=== PATIENT | female | born 1970 | race Caucasian/White ===

== ENCOUNTER 2023-09-18 16:25 | Emergency (ER) | payer OTHER, SELFPAY ==
[2023-09-18 16:30] VITALS: BP 128/78; PULSE 79; RESP 18; TEMP 37.7; O2SAT 100; BMI 20.3
--- NOTE | 2023-09-18 16:39 | ED.GENADUL1 ---
Documented by User: Lucero Bethea 09/18/23 17:39 HPI - General Adult General Chief complaint: Upper Respiratory Infection Stated complaint: Nausea, Weakness Time Seen by Provider: 09/18/23 16:37 Source: patient Mode of arrival: walk-in Limitations: no limitations History of Present Illness HPI narrative: 52 year old female presents to the ED for nausea, body aches, fatigue. Onset was this morning. She developed cough, congestion last night. States her children were ill last week. She feels dehydrated. Denies fever, dizziness, CP, SOB, abd pain, diarrhea. Rates her pain 4/10 at this time. Related Data Home Medications Medication Instructions Recorded Confirmed No Known Home Medications 09/18/23 09/18/23 Allergies Allergy/AdvReac Type Severity Reaction Status Date / Time No Known Drug Allergies Allergy Verified 09/18/23 16:30 Review of Systems ROS Constitutional Reports: chills; Denies: fever Ears, nose, mouth, and throat Reports: nasal discharge and nasal congestion; Denies: throat pain, neck pain or throat swelling Cardiovascular Denies: chest pain Respiratory Reports: cough; Denies: shortness of breath Gastrointestinal Reports: nausea and vomiting; Denies: abdominal pain or diarrhea Genitourinary Denies: painful urination Musculoskeletal Denies: back pain or neck pain Integumentary/Breast Reports: rash Neurological Denies: headache, weakness in extremities or dizziness PFSH PFSH Social History Smoking status: Never smoker Exam Constitutional Vital Signs, click to edit/add: Last Vital Signs Temp 99.9 F 09/18/23 16:30 Pulse 79 09/18/23 16:30 Resp 18 09/18/23 16:30 BP 128/78 09/18/23 16:30 Pulse Ox 100 09/18/23 16:30 Common normals: no apparent distress and oriented x3 General appearance: cooperative [facility] Common normals: normocephalic Face and sinus: normal facial exam Nose: external nose normal External auditory canal: EACs normal Mouth: oral and palatal mucosa normal, lip normal and tongue normal Eye Common normals: conjunctivae normal and no scleral icterus Neck & C-Spine Common normals: supple Chest Common normals: inspection of chest normal Respiratory Common normals: normal respiratory effort Effort & inspection: symmetric chest movement Auscultation: clear to auscultation bilaterally Cardio Common normals: regular rate and regular rhythm GI Common normals: Normal to inspection, nondistended, normoactive bowel sounds present, soft to palpation and non-tender Neuro Common normals: oriented x3 Sensorium/orientation: awake Speech: speech normal Course Vital Signs Vital signs: Vital Signs Temperature 99.9 F 09/18/23 16:30 Pulse Rate 79 09/18/23 16:30 Respiratory Rate 18 09/18/23 16:30 Blood Pressure 128/78 09/18/23 16:30 Pulse Oximetry 100 09/18/23 16:30 Temperature 99.9 F 09/18/23 16:30 Pulse Rate 79 09/18/23 16:30 Respiratory Rate 18 09/18/23 16:30 Blood Pressure 128/78 09/18/23 16:30 Pulse Oximetry 100 09/18/23 16:30 Medical Decision Making MDM Narrative Medical decision making narrative: She tested positive for Covid-19. She was given IV fluids, Zofran, and Toradol with improvement in her sx. She reported she was feeling much better. She has Phenergan for nausea at home. Follow up with pcp for a recheck, further evaluation and treatment. Return precautions were discussed. Medical Records Medical records reviewed: Yes I reviewed the patient's medical records Lab Data Lab results reviewed: Yes I reviewed the patient's lab results Labs: Lab Results 09/18/23 Range/Units 16:50 WBC 6.9 (4.0-11.0) 10^3/uL RBC 4.16 L (4.20-5.40) 10^6/uL Hgb 12.9 (12.0-16.0) g/dL Hct 39.2 (36.0-48.0) % MCV 94.2 (81.0-99.0) fL MCH 31.0 (26.7-34.0) pg MCHC 32.9 (29.9-35.2) g/dL RDW 12.4 (11.0-15.0) % Plt Count 166 (150-450) 10^3/uL MPV 10.0 (9.5-13.5) fL Neut % (Auto) 93.0 H (43.0-75.0) % Lymph % (Auto) 2.6 L (20.5-60.0) % Dubois % (Auto) 3.6 (1.7-12.0) % Eos % (Auto) 0.1 L (0.9-7.0) % Baso % (Auto) 0.4 (0.2-2.0) % Neut # (Auto) 6.4 (1.4-6.5) 10^3/uL Lymph # (Auto) 0.2 L (1.2-3.8) 10^3/uL Dubois # (Auto) 0.3 (0.3-0.8) 10^3/uL Eos # (Auto) 0.0 (0.0-0.7) 10^3/uL Baso # (Auto) 0.0 (0.0-0.1) 10^3/uL Abs Immat Gran (auto) 0.02 (0.00-0.03) 10^3/uL Imm/Tot Granulo (auto) 0.3 (0.0-0.5) % Sodium 138 (136-145) mmol/L Potassium 3.6 (3.5-5.1) mmol/L Chloride 101 (98-107) mmol/L Carbon Dioxide 25.2 (21.0-32.0) mmol/L Anion Gap 15.4 BUN 15.0 (7.0-18.0) mg/dL Creatinine 0.84 (0.55-1.02) mg/dL Est GFR ( Amer) >60 (>=60) Est GFR (Non-Af Amer) >60 (>=60) BUN/Creatinine Ratio 17.9 Glucose 120 H (74-106) mg/dL Calcium 9.6 (8.5-10.1) mg/dL SARS-CoV-2 (PCR) Positive A (NEGATIVE) Influenza Type A Ag Negative Influenza Type B Ag Negative Discharge Plan Discharge Chief Complaint: Upper Respiratory Infection Clinical Impression: COVID-19, Nausea Patient Disposition: Home, Self-Care Time of Disposition Decision: 17:19 Condition: Good Mode of Transportation: Private Vehicle Prescriptions / Home Meds: No Action No Known Home Medications Instructions: COVID-19 (Coronavirus Disease 2019) (ED), How to Recover from COVID-19 at Home (ED) Stand Alone Forms: Portal Instructions Referrals: RAMIREZ QUEEN [Primary Care Provider] - 1 week Discharge Date/Time: 09/18/23 17:32 Documented by User: Thanh Sahu MD 09/18/23 19:35 HPI - General Adult General Chief complaint: Upper Respiratory Infection Stated complaint: Nausea, Weakness Time Seen by Provider: 09/18/23 16:37 Related Data Home Medications Medication Instructions Recorded Confirmed No Known Home Medications 09/18/23 09/18/23 Allergies Allergy/AdvReac Type Severity Reaction Status Date / Time No Known Drug Allergies Allergy Verified 09/18/23 16:30 PFSH PFSH Social History Smoking status: Never smoker Exam Constitutional Vital Signs, click to edit/add: Last Vital Signs Temp 99.9 F 09/18/23 16:30 Pulse 79 09/18/23 16:30 Resp 18 09/18/23 16:30 BP 128/78 09/18/23 16:30 Pulse Ox 100 09/18/23 16:30 Course Vital Signs Vital signs: Vital Signs Temperature 99.9 F 09/18/23 16:30 Pulse Rate 79 09/18/23 16:30 Respiratory Rate 18 09/18/23 16:30 Blood Pressure 128/78 09/18/23 16:30 Pulse Oximetry 100 09/18/23 16:30 Temperature 99.9 F 09/18/23 16:30 Pulse Rate 79 09/18/23 16:30 Respiratory Rate 18 09/18/23 16:30 Blood Pressure 128/78 09/18/23 16:30 Pulse Oximetry 100 09/18/23 16:30 Medical Decision Making MDM Narrative Medical decision making narrative: She tested positive for Covid-19. She was given IV fluids, Zofran, and Toradol with improvement in her sx. She reported she was feeling much better. She has Phenergan for nausea at home. Follow up with pcp for a recheck, further evaluation and treatment. Return precautions were discussed. I, Dr Sahu, have reviewed the above progress note and course of action in the ER; agree with the above. I have gone over history and physical, and discussed disposition and treatment plan with the patient. Lab Data Labs: Lab Results 09/18/23 Range/Units 16:50 WBC 6.9 (4.0-11.0) 10^3/uL RBC 4.16 L (4.20-5.40) 10^6/uL Hgb 12.9 (12.0-16.0) g/dL Hct 39.2 (36.0-48.0) % MCV 94.2 (81.0-99.0) fL MCH 31.0 (26.7-34.0) pg MCHC 32.9 (29.9-35.2) g/dL RDW 12.4 (11.0-15.0) % Plt Count 166 (150-450) 10^3/uL MPV 10.0 (9.5-13.5) fL Neut % (Auto) 93.0 H (43.0-75.0) % Lymph % (Auto) 2.6 L (20.5-60.0) % Dubois % (Auto) 3.6 (1.7-12.0) % Eos % (Auto) 0.1 L (0.9-7.0) % Baso % (Auto) 0.4 (0.2-2.0) % Neut # (Auto) 6.4 (1.4-6.5) 10^3/uL Lymph # (Auto) 0.2 L (1.2-3.8) 10^3/uL Dubois # (Auto) 0.3 (0.3-0.8) 10^3/uL Eos # (Auto) 0.0 (0.0-0.7) 10^3/uL Baso # (Auto) 0.0 (0.0-0.1) 10^3/uL Abs Immat Gran (auto) 0.02 (0.00-0.03) 10^3/uL Imm/Tot Granulo (auto) 0.3 (0.0-0.5) % Sodium 138 (136-145) mmol/L Potassium 3.6 (3.5-5.1) mmol/L Chloride 101 (98-107) mmol/L Carbon Dioxide 25.2 (21.0-32.0) mmol/L Anion Gap 15.4 BUN 15.0 (7.0-18.0) mg/dL Creatinine 0.84 (0.55-1.02) mg/dL Est GFR ( Amer) >60 (>=60) Est GFR (Non-Af Amer) >60 (>=60) BUN/Creatinine Ratio 17.9 Glucose 120 H (74-106) mg/dL Calcium 9.6 (8.5-10.1) mg/dL SARS-CoV-2 (PCR) Positive A (NEGATIVE) Influenza Type A Ag Negative Influenza Type B Ag Negative Discharge Plan Discharge Chief Complaint: Upper Respiratory Infection Clinical Impression: COVID-19, Nausea Patient Disposition: Home, Self-Care Time of Disposition Decision: 17:19 Condition: Good Mode of Transportation: Private Vehicle Prescriptions / Home Meds: No Action No Known Home Medications Instructions: COVID-19 (Coronavirus Disease 2019) (ED), How to Recover from COVID-19 at Home (ED) Stand Alone Forms: Portal Instructions Referrals: RAMIREZ QUEEN [Primary Care Provider] - 1 week Discharge Date/Time: 09/18/23 17:32
[2023-09-18] MEDS: 0.9 % SODIUM CHLORIDE 1,000 ML 999 ML IV (16:45)
[2023-09-18] MEDS: KETOROLAC TROMETHAMINE 30 MG/ML VIAL 15 MG IVP (16:45)
[2023-09-18] MEDS: ONDANSETRON 4 MG RAPDIS TABLET SL (16:45)
[2023-09-18 16:56] LABS: Basophils Percent Auto 0.4 % (0.2-2.0); Eosinophils Percent Auto 0.1 % (0.9-7.0); Hematocrit 39.2 % (36.0-48.0); Hemoglobin 12.9 g/dL (12.0-16.0); Immature Granulocytes Abs Auto 0.02 10^3/uL (0.00-0.03); Immature Granulocytes Pct Auto 0.3 % (0.0-0.5); Lymphocytes Absolute Auto 0.2 10^3/uL (1.2-3.8); Lymphocytes Percent Auto 2.6 % (20.5-60.0); Mean Corpuscular HGB Conc 32.9 g/dL (29.9-35.2); Mean Corpuscular Volume 94.2 fL (81.0-99.0); Monocytes Absolute Auto 0.3 10^3/uL (0.3-0.8); Monocytes Percent Auto 3.6 % (1.7-12.0); Neutrophils Absolute Auto 6.4 10^3/uL (1.4-6.5); Platelet Count 166 10^3/uL (150-450); Red Blood Count 4.16 10^6/uL (4.20-5.40); Red Cell Distribution Width 12.4 % (11.0-15.0); White Blood Count 6.9 10^3/uL (4.0-11.0)
[2023-09-18 17:06] LABS: SARS-CoV-2 Ag POSITIVE (NEGATIVE)
[2023-09-18 17:07] LABS: Anion Gap 15.4; BUN Creatinine Ratio 17.9; Calcium 9.6 mg/dL (8.5-10.1); Carbon Dioxide 25.2 mmol/L (21.0-32.0); Chloride 101 mmol/L (98-107); Estimated GFR (African America >60 (>=60); Estimated GFR (Non-African Ame >60 (>=60); Glucose 120 mg/dL (74-106); Potassium 3.6 mmol/L (3.5-5.1); Sodium 138 mmol/L (136-145)
[2023-09-18 17:09] LABS: Influenza Virus A Antigen Negative; Influenza Virus B Antigen Negative; Internal Control Within Normal Limits
--- OUTSIDE RECORDS SUMMARY | 2023-09-19 10:08 | XMS_ITS | CCD ---
Author Name Unknown Address [address] [place] [address] Organization [facility] Care Team Providers Care Community Engagement Coordinator Name Role Phone Joselin Cowan Unavailable DO Garima Miller Primary Care Provider [phone] DO Garima Miller Attending Provider DO Leora Zamudio Attending Provider DO Leora Zamudio Attending Provider NO FAMILY, PHYSICIAN Primary Care Provider Unava ilable Self, Referral Attending Provider Unavailable DO Leora Zamudio Referring Provider [phone] DO Kirill Machuca Attending Provider [phone] Self, Referral Attending Provider Unavailable DO Leora Zamudio Referring Provider [phone] NO FAMILY, PHYSICIAN Primary Care Provider Unava ilable DO Kirill Machuca Attending Provider DO Garima Miller Primary Care Provider [phone] DO Maximus Albarran Emergency Provider Leora Zamudio Admitting Unavailable Leora Zamudio Attending Unavailable NO FAMILY, PHYSICIAN Primary Care Unavailable NO FAMILY, PHYSICIAN Primary Care Unavailable Self, Referral Admitting Unavailable Self, Referral Attending Unavailable Leora Zamudio Referring Unavailable Garima Miller Primary Care Unavailable Maximus Albarran Admitting Unavailable Maximus Albarran Attending Unavailable NO FAMILY, PHYSICIAN Primary Care Unavailable Kirill Machuca Admitting Unavailable Kirill Machuca Attending Unavailable Medications Current Medications Medication Drug Class(es) Dates Sig (Normalized) Sig (Original) predniSONE 10 mg oral tablet (1 source) Start: 05-07-2021 prednisone 10 mg 5 tablets for 2 days, 4 tablets x2 days, then 3 x2 days, 2 x2 days, 1 x2 days Orally as directed for 10 days Apr, Active Problems Active Problems Problem Classification Problem Date Documented Da te Episodic/Chronic Unclassified (1 source) Encounter for screening mammogram for malignant neoplasm of breast; Translations: [Encounter for screening mammogram for malignant neoplasm of breast] Onset: 06-25-2023 Unclassified (1 source) Encounter for screening for malignant neoplasm of cervix; Translations: [Encounter for screening for malignant neoplasm of cervix] Onset: 06-13-2023 Past or Other Problems Problem Classification Problem Date Documented Da te Episodic/Chronic Immunizations and screening for infectious disease (1 source) Contact with and (suspected) exposure to other viral communicable diseases Onset: 10-01-2021 Resolved: 10-01-2021 Episodic Viral infection (1 source) COVID-19 Onset: 10-01-2021 Resolved: 10-01-2021 Results Test Name Value Interpretation Reference Range Facility Alanine aminotransferase [En zymatic activity/volume] in Serum or PlasmaOrdered By: PROVIDER TEMP on 09-18-2023 ALT [Catalytic activity/Vol] 14 U/L 7-52 [facility] Albumin [Mass/volume] in Ser um or Plasma by Bromocresol green (BCG) dye binding methoOrdered By: PROVIDER TEMP on 09-18-2023 Albumin BCG dye [Mass/Vol] 5.0 g/dL 3.5-5.7 [facility] Alkaline phosphatase [Enzyma tic activity/volume] in Serum or PlasmaOrdered By: PROVIDER TEMP on 09-18-2023 ALP [Catalytic activity/Vol] 72 U/L 34-104 [facility] Aspartate aminotransferase [ Enzymatic activity/volume] in Serum or PlasmaOrdered By: PROVIDER TEMP on 09-18-2023 AST [Catalytic activity/Vol] 16 U/L 13-39 [facility] Basophils Auto (Bld) [#/Vol] Ordered By: PROVIDER TEMP on 09-18-2023 Basophils (Bld) [#/Vol] 0.0 10*3/uL 0.0-0.2 [facility] Basophils/100 WBC Auto (Bld) Ordered By: PROVIDER TEMP on 09-18-2023 Basophils/100 WBC (Bld) 0.5 % . [facility] Bilirubin.total [Mass/volume ] in Serum or PlasmaOrdered By: PROVIDER TEMP on 09-18-2023 Bilirubin [Mass/Vol] 0.6 mg/dL 0.3-1.0 [facility] Calcium [Mass/volume] in Ser um or PlasmaOrdered By: PROVIDER TEMP on 09-18-2023 Calcium [Mass/Vol] 10.2 mg/dL 8.6-10.3 [facility] Carbon dioxide, total [Moles /volume] in Serum or PlasmaOrdered By: PROVIDER TEMP on 09-18-2023 CO2 [Moles/Vol] 24.0 mmol/L 21.0-31.0 [facility] Chloride [Moles/volume] in S roxanna or PlasmaOrdered By: PROVIDER TEMP on 09-18-2023 Chloride [Moles/Vol] 102 mmol/L 98-107 [facility] Complete Blood Count Auto Di ffon 09-18-2023 Basophils (Bld) [#/Vol] 0.0 10*3/uL Normal 0.0-0.2 [facility] Comment on above: Result Comment: PERF ORMED BY: [address] [place] [address] PATHOLOGIST W[employer] OPERATOR DARREN HOLT M.D. Performed By: #### L IPASE, CMP, CBC #### [facility] [address] [place] [address] [place] Basophils/100 WBC (Bld) 0.5 % Normal . [facility] Comment on above: Performed By: #### L IPASE, CMP, CBC #### [facility] [address] [place] [address] [place] Eosinophils (Bld) [#/Vol] 0.0 10*3/uL Normal 0.0-0.45 [facility] Comment on above: Performed By: #### L IPASE, CMP, CBC #### [facility] [address] [place] [address] [place] Eosinophils/100 WBC (Bld) 0.3 % Normal . [facility] Comment on above: Performed By: #### L IPASE, CMP, CBC #### [address] Erythrocyte distribution width (RBC) [Ratio] 13.2 % Normal 11.9-15.3 [facility] Comment on above: Performed By: #### L IPASE, CMP, CBC #### [address] Hematocrit (Bld) [Volume fraction] 40.4 % Normal 34.0-46.4 [facility] Comment on above: Performed By: #### L IPASE, CMP, CBC #### [address] Hemoglobin (Bld) [Mass/Vol] 13.9 g/dL Normal 11.8-15.4 [facility] Comment on above: Performed By: #### L IPASE, CMP, CBC #### [address] Lymphocytes (Bld) [#/Vol] 0.2 10*3/uL Low 1.00-4.8 [facility] Comment on above: Performed By: #### L IPASE, CMP, CBC #### [address] Lymphocytes/100 WBC (Bld) 3.4 % Normal . [facility] Comment on above: Performed By: #### L IPASE, CMP, CBC #### [address] MCH (RBC) [Entitic mass] 31.3 pg Normal 24.7-34.3 [facility] Comment on above: Performed By: #### L IPASE, CMP, CBC #### [address] MCV (RBC) [Entitic vol] 91.0 fL Normal 80-100 [facility] Comment on above: Performed By: #### L IPASE, CMP, CBC #### [address] Mean Corpuscular HGB Conc 34.3 g/dL Normal 32.0-35.0 [facility] Comment on above: Performed By: #### L IPASE, CMP, CBC #### [place] [address] [place] Monocytes (Bld) [#/Vol] 0.3 10*3/uL Normal 0.0-0.8 [facility] Comment on above: Performed By: #### L IPASE, CMP, CBC #### [address] Monocytes/100 WBC (Bld) 23.55 % High 0.00-20.00 [facility] Comment on above: Result Comment: For adults in ED, MDW > 20.0 may be associated with a higher risk of sepsis during the first 12 hrs of hospital admission Performed By: #### L IPASE, CMP, CBC #### [address] Monocytes/100 WBC (Bld) 4.7 % Normal . [facility] Comment on above: Performed By: #### L IPASE, CMP, CBC #### [place] [address] [place] Neutrophils (Bld) [#/Vol] 6.3 10*3/uL Normal 1.8-7.7 [facility] Comment on above: Performed By: #### L IPASE, CMP, CBC #### [place] [address] [place] Neutrophils/100 WBC (Bld) 91.1 % Normal . [facility] Comment on above: Performed By: #### L IPASE, CMP, CBC #### [facility] [address] [place] [address] [place] NRBC% 0.1 /100{WBC} Normal 0-0.5 [facility] Comment on above: Performed By: #### L IPASE, CMP, CBC #### [address] Platelet mean volume (Bld) [Entitic vol] 8.7 fL Normal 6.3-10.7 [facility] Comment on above: Performed By: #### L IPASE, CMP, CBC #### [address] Platelets (Bld) [#/Vol] 197 10*3/uL Normal 150-450 [facility] Comment on above: Performed By: #### L IPASE, CMP, CBC #### [address] RBC (Bld) [#/Vol] 4.44 10*6/uL Normal 3.60-5.00 [facility] Comment on above: Performed By: #### L IPASE, CMP, CBC #### [address] WBC (Bld) [#/Vol] 6.9 10*3/uL Normal 3.8-11.6 [facility] Comment on above: Performed By: #### L IPASE, CMP, CBC #### [address] Comprehensive Metabolic Pane charline 09-18-2023 Albumin [Mass/Vol] 5.0 g/dL Normal 3.5-5.7 [facility] Comment on above: Performed By: #### L IPASE, CMP, CBC #### [address] Albumin/Globulin [Mass ratio] 1.7 {ratio} Normal [facility] Comment on above: Performed By: #### L IPASE, CMP, CBC #### [address] ALP [Catalytic activity/Vol] 72 U/L Normal 34-104 [facility] Comment on above: Performed By: #### L IPASE, CMP, CBC #### [address] ALT [Catalytic activity/Vol] 14 U/L Normal 7-52 [facility] Comment on above: Performed By: #### L IPASE, CMP, CBC #### [place] [id number] [place] Anion gap [Moles/Vol] 13.9 mmol/L Normal 6.0-15.[address] [facility] Comment on above: Performed By: #### L IPASE, CMP, CBC #### [facility] [address] AST [Catalytic activity/Vol] 16 U/L Normal 13-39 [facility] Comment on above: Performed By: #### L IPASE, CMP, CBC #### [facility] [address] Bilirubin [Mass/Vol] 0.6 mg/dL Normal 0.3-1.0 [facility] Comment on above: Performed By: #### L IPASE, CMP, CBC #### [facility] [address] Calcium [Mass/Vol] 10.2 mg/dL Normal 8.6-10.3 [facility] Comment on above: Performed By: #### L IPASE, CMP, CBC #### [facility] [address] Chloride [Moles/Vol] 102 mmol/L Normal 98-107 [facility] Comment on above: Performed By: #### L IPASE, CMP, CBC #### [facility] [address] CO2 [Moles/Vol] 24.0 mmol/L Normal 21.0-31.0 [facility] Comment on above: Performed By: #### L IPASE, CMP, CBC #### [facility] [address] [place] [address] [place] Creatinine [Mass/Vol] 0.77 mg/dL Normal 0.60-1.20 [facility] Comment on above: Performed By: #### L IPASE, CMP, CBC #### [facility] [address] [place] [address] [place] Creatinine Clr Calc Pharmacy 69.90 Normal [facility] Comment on above: Performed By: #### L IPASE, CMP, CBC #### [facility] [address] GFR/1.73 sq M.predicted MDRD (S/P/Bld) [Vol rate/Area] mL/min/{1.73_m2} Normal [facility] Comment on above: Performed By: #### L IPASE CMP, CBC #### [facility] [address] Globulin (S) [Mass/Vol] 2.9 g/dL Normal [facility] Comment on above: Performed By: #### L IPASE CMP, CBC #### [facility] [address] Glucose [Mass/Vol] 106 mg/dL High 70-100 [facility] Comment on above: Result Comment: [facility] Glucose Reference Range is dependent on time and content of last meal. Glucose of more than 200 mg/dL in a nonstressed, ambulatory subject supports the diagnosis of Diabetes Mellitus. ADA recommended reference range Performed By: #### L IPASE CMP, CBC #### [facility] [address] Potassium [Moles/Vol] 3.9 mmol/L Normal 3.5-5.1 [facility] Comment on above: Performed By: #### L IPASE CMP, CBC #### [address] Protein [Mass/Vol] 7.9 g/dL Normal 6.4-8.9 [facility] Comment on above: Performed By: #### L IPASE, CMP, CBC #### [facility] [address] Sodium [Moles/Vol] 136 mmol/L Normal 136-145 [facility] Comment on above: Performed By: #### L IPASE, CMP, CBC #### [facility] [address] Urea nitrogen [Mass/Vol] 14 mg/dL Normal 7-25 [facility] Comment on above: Performed By: #### L IPASE, CMP, CBC #### [facility] [address] Creatinine [Mass/volume] in Serum or PlasmaOrdered By: PROVIDER TEMP on 09-18-2023 Creatinine [Mass/Vol] 0.77 mg/dL 0.60-1.20 [facility] Eosinophils Auto (Bld) [#/Vo l]Ordered By: PROVIDER TEMP on 09-18-2023 Eosinophils (Bld) [#/Vol] 0.0 10*3/uL 0.0-0.45 [facility] Eosinophils/100 WBC Auto (Bl d)Ordered By: PROVIDER TEMP on 09-18-2023 Eosinophils/100 WBC (Bld) 0.3 % . [facility] Erythrocyte distribution wid th Auto (RBC) [Ratio]Ordered By: PROVIDER TEMP on 09-18-2023 Erythrocyte distribution width (RBC) [Ratio] 13.2 % 11.9-15.3 [facility] Globulin Calc (S) [Mass/Vol] Ordered By: PROVIDER TEMP on 09-18-2023 Globulin (S) [Mass/Vol] 2.9 g/dL [facility] Glucose [Mass/volume] in Ser um or PlasmaOrdered By: PROVIDER TEMP on 09-18-2023 Glucose [Mass/Vol] 106 mg/dL 70-100 [facility] Comment on above: ADA recommended refe rence rangeRandom Glucose Reference Range is dependent on time and content of last meal. Glucose of more than 200 mg/dL in a nonstressed, ambulatory subject supports the diagnosis of Diabetes Mellitus. Hematocrit Auto (Bld) [Volum e fraction]Ordered By: PROVIDER TEMP on 09-18-2023 Hematocrit (Bld) [Volume fraction] 40.4 % 34.0-46.4 [facility] Hemoglobin [Mass/volume] in BloodOrdered By: PROVIDER TEMP on 09-18-2023 Hemoglobin (Bld) [Mass/Vol] 13.9 g/dL 11.8-15.4 [facility] Leukocytes [#/volume] correc derick for nucleated erythrocytes in Blood by Automated counOrdered By: PROVIDER TEMP on 09-18-2023 WBC corrected for nucl RBC Auto (Bld) [#/Vol] 6.9 10*3/uL 3.8-11.6 [facility] Lipaseon 09-18-2023 Lipase [Catalytic activity/Vol] 32.0 U/L Normal 11.0-82.0 [facility] Comment on above: Result Comment: PERF ORMED BY: [facility] [address] [place] [address] PATHOLOGIST W[employer] OPERATOR DARREN HOLT M.D. Performed By: #### L IPASE, CMP, CBC #### [facility] [address] Lipase [Enzymatic activity/v olume] in Serum or PlasmaOrdered By: PROVIDER TEMP on 09-18-2023 Lipase [Catalytic activity/Vol] 32.0 U/L 11.0-82.0 [facility] Lymphocytes Auto (Bld) [#/Vo l]Ordered By: PROVIDER TEMP on 09-18-2023 Lymphocytes (Bld) [#/Vol] 0.2 10*3/uL 1.00-4.8 [facility] Lymphocytes/100 WBC Auto (Bl d)Ordered By: PROVIDER TEMP on 09-18-2023 Lymphocytes/100 WBC (Bld) 3.4 % . [facility] MCH Auto (RBC) [Entitic mass ]Ordered By: PROVIDER TEMP on 09-18-2023 MCH (RBC) [Entitic mass] 31.3 pg 24.7-34.3 [facility] MCHC Auto (RBC) [Mass/Vol]Or dered By: PROVIDER TEMP on 09-18-2023 MCHC (RBC) [Mass/Vol] 34.3 g/dL 32.0-35.0 [facility] MCV Auto (RBC) [Entitic vol] Ordered By: PROVIDER TEMP on 09-18-2023 MCV (RBC) [Entitic vol] 91.0 fL 80-100 [facility] Monocyte distribution width [Entitic volume] in Blood by AutomatedOrdered By: PROVIDER TEMP on 09-18-2023 Monocyte distribution width Auto (Bld) [Entitic vol] 23.55 % 0.00-20.00 [facility] Comment on above: For adults in ED, MD W > 20.0 may be associated with a higher risk of sepsis during the first 12 hrs of hospital admission Monocytes Auto (Bld) [#/Vol] Ordered By: PROVIDER TEMP on 09-18-2023 Monocytes (Bld) [#/Vol] 0.3 10*3/uL 0.0-0.8 [facility] Monocytes/100 WBC Auto (Bld) Ordered By: PROVIDER TEMP on 09-18-2023 Monocytes/100 WBC (Bld) 4.7 % . [facility] Neutrophils Auto (Bld) [#/Vo l]Ordered By: PROVIDER TEMP on 09-18-2023 Neutrophils (Bld) [#/Vol] 6.3 10*3/uL 1.8-7.7 [facility] Neutrophils/100 WBC Auto (Bl d)Ordered By: PROVIDER TEMP on 09-18-2023 Neutrophils/100 WBC (Bld) 91.1 % . [facility] No Panel InformationOrdered By: PROVIDER TEMP on 09-18-2023 Estimated GFR (CKD-EPI) > 60.0 mL/Min [facility] Creatinine Clearance (Chem 69.90 [facility] Nucleated erythrocytes [Pres ence] in Blood by Automated countOrdered By: PROVIDER TEMP on 09-18-2023 Nucleated RBC Auto Ql (Bld) 0.1 /100{WBC} 0-0.5 [facility] Platelet mean volume Auto (B ld) [Entitic vol]Ordered By: PROVIDER TEMP on 09-18-2023 Platelet mean volume (Bld) [Entitic vol] 8.7 fL 6.3-10.7 [facility] Platelets Auto (Bld) [#/Vol] Ordered By: PROVIDER TEMP on 09-18-2023 Platelets (Bld) [#/Vol] 197 10*3/uL 150-450 [facility] Potassium [Moles/volume] in Serum or PlasmaOrdered By: PROVIDER TEMP on 09-18-2023 Potassium [Moles/Vol] 3.9 mmol/L 3.5-5.1 [facility] Protein [Mass/volume] in Ser um or PlasmaOrdered By: PROVIDER TEMP on 09-18-2023 Protein [Mass/Vol] 7.9 g/dL 6.4-8.9 [facility] RBC Auto (Bld) [#/Vol]Ordere d By: PROVIDER TEMP on 09-18-2023 RBC (Bld) [#/Vol] 4.44 10*6/uL 3.60-5.00 [facility] Serum or plasma albumin/glob ulin mass ratioOrdered By: PROVIDER TEMP on 09-18-2023 Albumin/Globulin [Mass ratio] 1.7 {ratio} [facility] Serum or plasma anion gap de terminationOrdered By: PROVIDER TEMP on 09-18-2023 Anion gap [Moles/Vol] 13.9 mmol/L 6.0-15.[address] [facility] Sodium [Moles/volume] in Ser um or PlasmaOrdered By: PROVIDER TEMP on 09-18-2023 Sodium [Moles/Vol] 136 mmol/L 136-145 [facility] Urea nitrogen [Mass/volume] in Serum or PlasmaOrdered By: PROVIDER TEMP on 09-18-2023 Urea nitrogen [Mass/Vol] 14 mg/dL 7-25 [facility] WBC Auto (Bld) [#/Vol]Ordere d By: PROVIDER TEMP on 09-18-2023 WBC (Bld) [#/Vol] 6.9 10*3/uL 3.8-11.6 [facility] Alanine aminotransferase [En zymatic activity/volume] in Serum or PlasmaOrdered By: Kirill Machuca on 06-27-2023 ALT [Catalytic activity/Vol] 8 U/L 7-52 [facility] Albumin [Mass/volume] in Ser um or Plasma by Bromocresol green (BCG) dye binding methoOrdered By: Kirill Machuca on 06-27-2023 Albumin BCG dye [Mass/Vol] 4.5 g/dL 3.5-5.7 [facility] Alkaline phosphatase [Enzyma tic activity/volume] in Serum or PlasmaOrdered By: Kirill Machuca on 06-27-2023 ALP [Catalytic activity/Vol] 56 U/L 34-104 [facility] Aspartate aminotransferase [ Enzymatic activity/volume] in Serum or PlasmaOrdered By: Kirill Machuca on 06-27-2023 AST [Catalytic activity/Vol] 10 U/L 13-39 [facility] Basophils Auto (Bld) [#/Vol] Ordered By: Kirill Machuca on 06-27-2023 Basophils (Bld) [#/Vol] 0.0 10*3/uL 0.0-0.2 [facility] Basophils/100 WBC Auto (Bld) Ordered By: Kirill Machuca on 06-27-2023 Basophils/100 WBC (Bld) 1.0 % . [facility] Bilirubin.total [Mass/volume ] in Serum or PlasmaOrdered By: Kirill Machuca on 06-27-2023 Bilirubin [Mass/Vol] 0.4 mg/dL 0.3-1.0 [facility] Calcium [Mass/volume] in Ser um or PlasmaOrdered By: Kirill Machuca on 06-27-2023 Calcium [Mass/Vol] 9.3 mg/dL 8.6-10.3 [facility] Carbon dioxide, total [Moles /volume] in Serum or PlasmaOrdered By: Kirill Machuca on 06-27-2023 CO2 [Moles/Vol] 30.0 mmol/L 21.0-31.0 [facility] Chloride [Moles/volume] in S roxanna or PlasmaOrdered By: Kirill Machuca on 06-27-2023 Chloride [Moles/Vol] 107 mmol/L 98-107 [facility] Cholesterol [Mass/volume] in Serum or PlasmaOrdered By: Kirill Machuca on 06-27-2023 Cholesterol [Mass/Vol] 201 mg/dL 140-[address] [facility] Comment on above: Chol less than 200 m g/dl low riskChol 201-239 mg/dl borderline riskChol 240 mg/dl and greater high risk Cholesterol in LDL Calc [Mas s/Vol]Ordered By: Kirill Machuca on 06-27-2023 Cholesterol in LDL [Mass/Vol] 116 mg/dL 0-100 [facility] Comment on above: LDL ATP III CLASSIFI CATIONLDL less than 100 mg/dL OptimalLDL 100-129 mg/dL Near or above optimalLDL 130-159 mg/dL Borderline highLDL 160-189 mg/dL HighLDL greater than 189 mg/dL Very high Cholesterol in VLDL Calc [Ma ss/Vol]Ordered By: Kirill Machuca on 06-27-2023 Cholesterol in VLDL [Mass/Vol] 14 mg/dL [facility] Creatinine [Mass/volume] in Serum or PlasmaOrdered By: Kirill Machuca on 06-27-2023 Creatinine [Mass/Vol] 0.84 mg/dL 0.60-1.20 [facility] Employee Comp Metabolic Pane charline 06-27-2023 Albumin [Mass/Vol] 4.5 g/dL Normal 3.5-5.7 [facility] Comment on above: Performed By: #### P ILLAR LIPID, PILLAR CMP, PILLAR CBC, PILLAR TSH #### [facility] [address] [place] [address] #### NICOTINE QUAL #### [facility] , Albumin/Globulin [Mass ratio] 2.4 {ratio} Normal [facility] Comment on above: Performed By: #### P ILLAR LIPID, PILLAR CMP, PILLAR CBC, PILLAR TSH #### [facility] [address] [place] [address] [place] #### NICOTINE QUAL #### [facility] , ALP [Catalytic activity/Vol] 56 U/L Normal 34-104 [facility] Comment on above: Performed By: #### P ILLAR LIPID, PILLAR CMP, PILLAR CBC, PILLAR TSH #### [facility] [address] [place] [address] [place] #### NICOTINE QUAL #### [facility] , ALT [Catalytic activity/Vol] 8 U/L Normal 7-52 [facility] Comment on above: Performed By: #### P ILLAR LIPID, PILLAR CMP, PILLAR CBC, PILLAR TSH #### [facility] [address] [place] [address] [place] #### NICOTINE QUAL #### [facility] , Anion gap [Moles/Vol] 8.3 mmol/L Normal 6.0-15.0 [facility] Comment on above: Performed By: #### P ILLAR LIPID, PILLAR CMP, PILLAR CBC, PILLAR TSH #### [facility] [address] [place] [address] [place] #### NICOTINE QUAL #### [facility] , AST [Catalytic activity/Vol] 10 U/L Low 13-39 [facility] Comment on above: Performed By: #### P ILLAR LIPID, PILLAR CMP, PILLAR CBC, PILLAR TSH #### [facility] [address] [place] [address] [place] #### NICOTINE QUAL #### [facility] , Bilirubin [Mass/Vol] 0.4 mg/dL Normal 0.3-1.0 [facility] Comment on above: Performed By: #### P ILLAR LIPID, PILLAR CMP, PILLAR CBC, PILLAR TSH #### [facility] [address] [place] [address] #### NICOTINE QUAL #### [facility] , Calcium [Mass/Vol] 9.3 mg/dL Normal 8.6-10.3 [facility] Comment on above: Performed By: #### P ILLAR LIPID, PILLAR CMP, PILLAR CBC, PILLAR TSH #### [facility] [address] [place] [address] [place] #### NICOTINE QUAL #### [facility] , Chloride [Moles/Vol] 107 mmol/L Normal 98-107 [facility] Comment on above: Performed By: #### P ILLAR LIPID, PILLAR CMP, PILLAR CBC, PILLAR TSH #### [facility] [address] [place] [address] [place] #### NICOTINE QUAL #### [facility] , CO2 [Moles/Vol] 30.0 mmol/L Normal 21.0-31.0 [facility] Comment on above: Performed By: #### P ILLAR LIPID, PILLAR CMP, PILLAR CBC, PILLAR TSH #### [facility] [address] [place] [address] [place] #### NICOTINE QUAL #### [facility] , Creatinine [Mass/Vol] 0.84 mg/dL Normal 0.60-1.20 [facility] Comment on above: Performed By: #### P ILLAR LIPID, PILLAR CMP, PILLAR CBC, PILLAR TSH #### [facility] [address] [place] [address] [place] #### NICOTINE QUAL #### [facility] , GFR/1.73 sq M.predicted MDRD (S/P/Bld) [Vol rate/Area] mL/min/{1.73_m2} Normal [facility] Comment on above: Performed By: #### P ILLAR LIPID, PILLAR CMP, PILLAR CBC, PILLAR TSH #### [facility] [address] [place] [address] [place] #### NICOTINE QUAL #### [facility] , Globulin (S) [Mass/Vol] 1.9 g/dL Normal [facility] Comment on above: Performed By: #### P ILLAR LIPID, PILLAR CMP, PILLAR CBC, PILLAR TSH #### [facility] [address] [place] [address] [place] #### NICOTINE QUAL #### [facility] , Glucose [Mass/Vol] 85 mg/dL Normal 70-100 [facility] Comment on above: Performed By: #### P ILLAR LIPID, PILLAR CMP, PILLAR CBC, PILLAR TSH #### [facility] [address] [place] [address] [place] #### NICOTINE QUAL #### [facility] , Potassium [Moles/Vol] 4.3 mmol/L Normal 3.5-5.1 [facility] Comment on above: Performed By: #### P ILLAR LIPID, PILLAR CMP, PILLAR CBC, PILLAR TSH #### [facility] [address] [place] [address] [place] #### NICOTINE QUAL #### [facility] , Protein [Mass/Vol] 6.4 g/dL Normal 6.4-8.9 [facility] Comment on above: Performed By: #### P ILLAR LIPID, PILLAR CMP, PILLAR CBC, PILLAR TSH #### [facility] [address] [place] [address] [place] #### NICOTINE QUAL #### [facility] , Sodium [Moles/Vol] 141 mmol/L Normal 136-145 [facility] Comment on above: Performed By: #### P ILLAR LIPID, PILLAR CMP, PILLAR CBC, PILLAR TSH #### [facility] [address] [place] [address] #### NICOTINE QUAL #### [facility] , Urea nitrogen [Mass/Vol] 20 mg/dL Normal 7-25 [facility] Comment on above: Performed By: #### P ILLAR LIPID, PILLAR CMP, PILLAR CBC, PILLAR TSH #### [address] #### NICOTINE QUAL #### [facility] , Employee Complete Blood Coun ton 06-27-2023 Basophils (Bld) [#/Vol] 0.0 10*3/uL Normal 0.0-0.2 [facility] Comment on above: Result Comment: PERF ORMED BY: [place] [address] PATHOLOGIST WATER TAXI OPERATOR DARREN HOLT M.D. Performed By: #### P ILLAR LIPID, PILLAR CMP, PILLAR CBC, PILLAR TSH #### [address] #### NICOTINE QUAL #### [facility] , Basophils/100 WBC (Bld) 1.0 % Normal . [facility] Comment on above: Performed By: #### P ILLAR LIPID, PILLAR CMP, PILLAR CBC, PILLAR TSH #### [facility] [address] [place] [address] [place] #### NICOTINE QUAL #### [facility] , Eosinophils (Bld) [#/Vol] 0.1 10*3/uL Normal 0.0-0.45 [facility] Comment on above: Performed By: #### P ILLAR LIPID, PILLAR CMP, PILLAR CBC, PILLAR TSH #### [address] #### NICOTINE QUAL #### [facility] , Eosinophils/100 WBC (Bld) 2.6 % Normal . [facility] Comment on above: Performed By: #### P ILLAR LIPID, PILLAR CMP, PILLAR CBC, PILLAR TSH #### [address] #### NICOTINE QUAL #### [facility] , Erythrocyte distribution width (RBC) [Ratio] 13.3 % Normal 11.9-15.3 [facility] Comment on above: Performed By: #### P ILLAR LIPID, PILLAR CMP, PILLAR CBC, PILLAR TSH #### [place] [address] [place] #### NICOTINE QUAL #### [facility] , Hematocrit (Bld) [Volume fraction] 39.2 % Normal 34.0-46.4 [facility] Comment on above: Performed By: #### P ILLAR LIPID, PILLAR CMP, PILLAR CBC, PILLAR TSH #### [place] [address] [place] #### NICOTINE QUAL #### [facility] , Hemoglobin (Bld) [Mass/Vol] 13.2 g/dL Normal 11.8-15.4 [facility] Comment on above: Performed By: #### P ILLAR LIPID, PILLAR CMP, PILLAR CBC, PILLAR TSH #### [place] [address] [place] #### NICOTINE QUAL #### [facility] , Lymphocytes (Bld) [#/Vol] 0.7 10*3/uL Low 1.00-4.8 [facility] Comment on above: Performed By: #### P ILLAR LIPID, PILLAR CMP, PILLAR CBC, PILLAR TSH #### [place] [address] [place] #### NICOTINE QUAL #### [facility] , Lymphocytes/100 WBC (Bld) 14.6 % Normal . [facility] Comment on above: Performed By: #### P ILLAR LIPID, PILLAR CMP, PILLAR CBC, PILLAR TSH #### [facility] [address] [place] [address] [place] #### NICOTINE QUAL #### [facility] , MCH (RBC) [Entitic mass] 31.2 pg Normal 24.7-34.3 [facility] Comment on above: Performed By: #### P ILLAR LIPID, PILLAR CMP, PILLAR CBC, PILLAR TSH #### [address] #### NICOTINE QUAL #### [facility] , MCV (RBC) [Entitic vol] 92.5 fL Normal 80-100 [facility] Comment on above: Performed By: #### P ILLAR LIPID, PILLAR CMP, PILLAR CBC, PILLAR TSH #### [address] #### NICOTINE QUAL #### [facility] , Mean Corpuscular HGB Conc 33.7 g/dL Normal 32.0-35.0 [facility] Comment on above: Performed By: #### P ILLAR LIPID, PILLAR CMP, PILLAR CBC, PILLAR TSH #### [address] #### NICOTINE QUAL #### [facility] , Monocytes (Bld) [#/Vol] 0.3 10*3/uL Normal 0.0-0.8 [facility] Comment on above: Performed By: #### P ILLAR LIPID, PILLAR CMP, PILLAR CBC, PILLAR TSH #### [place] [id number] [place] #### NICOTINE QUAL #### [facility] , Monocytes/100 WBC (Bld) 6.1 % Normal . [facility] Comment on above: Performed By: #### P ILLAR LIPID, PILLAR CMP, PILLAR CBC, PILLAR TSH #### [facility] [address] [place] [address] [place] #### NICOTINE QUAL #### [facility] , Neutrophils (Bld) [#/Vol] 3.8 10*3/uL Normal 1.8-7.7 [facility] Comment on above: Performed By: #### P ILLAR LIPID, PILLAR CMP, PILLAR CBC, PILLAR TSH #### [address] #### NICOTINE QUAL #### [facility] , Neutrophils/100 WBC (Bld) 75.7 % Normal . [facility] Comment on above: Performed By: #### P ILLAR LIPID, PILLAR CMP, PILLAR CBC, PILLAR TSH #### [address] #### NICOTINE QUAL #### [facility] , NRBC% 0.0 /100{WBC} Normal 0-0.5 [facility] Comment on above: Performed By: #### P ILLAR LIPID, PILLAR CMP, PILLAR CBC, PILLAR TSH #### [facility] [address] [place] [address] [place] #### NICOTINE QUAL #### [facility] , Platelet mean volume (Bld) [Entitic vol] 8.8 fL Normal 6.3-10.7 [facility] Comment on above: Performed By: #### P ILLAR LIPID, PILLAR CMP, PILLAR CBC, PILLAR TSH #### [place] [address] [place] #### NICOTINE QUAL #### [facility] , Platelets (Bld) [#/Vol] 183 10*3/uL Normal 150-450 [facility] Comment on above: Performed By: #### P ILLAR LIPID, PILLAR CMP, PILLAR CBC, PILLAR TSH #### [facility] [address] [place] [address] [place] #### NICOTINE QUAL #### [facility] , RBC (Bld) [#/Vol] 4.23 10*6/uL Normal 3.60-5.00 [facility] Comment on above: Performed By: #### P ILLAR LIPID, PILLAR CMP, PILLAR CBC, PILLAR TSH #### [facility] [address] [place] [address] [place] #### NICOTINE QUAL #### [facility] , WBC (Bld) [#/Vol] 5.0 10*3/uL Normal 3.8-11.6 [facility] Comment on above: Performed By: #### P ILLAR LIPID, PILLAR CMP, PILLAR CBC, PILLAR TSH #### [facility] [address] [place] [address] #### NICOTINE QUAL #### [facility] , Employee Lipid Profileon Cholesterol [Mass/Vol] 201 mg/dL High 140-[address] [facility] Comment on above: Result Comment: Chol less than 200 mg/dl low risk Chol 201-239 mg/dl borderline risk Chol 240 mg/dl and greater high risk Performed By: #### P ILLAR LIPID, PILLAR CMP, PILLAR CBC, PILLAR TSH #### [facility] [address] [place] [address] [place] #### NICOTINE QUAL #### [facility] , Cholesterol in HDL [Mass/Vol] 71 mg/dL Normal 23-92 [facility] Comment on above: Result Comment: HDL CHOL ATP-III CLASSIFICATION Cardiovascular Risk HDL > or equal to 60 mg/dL LOW HDL < 40 mg/dL HIGH Performed By: #### P ILLAR LIPID, PILLAR CMP, PILLAR CBC, PILLAR TSH #### [facility] [address] [place] [address] [place] #### NICOTINE QUAL #### [facility] , Cholesterol.total/Flory sterol in HDL [Mass ratio] 2.8 {ratio} Normal <5.0 [facility] Comment on above: Performed By: #### P ILLAR LIPID, PILLAR CMP, PILLAR CBC, PILLAR TSH #### [place] [address] [place] #### NICOTINE QUAL #### [facility] , LDL Cholesterol,Calculated 116 mg/dL High 0-100 [facility] Comment on above: Result Comment: LDL ATP III CLASSIFICATION LDL less than 100 mg/dL Optimal LDL 100-129 mg/dL Near or above optimal LDL 130-159 mg/dL Borderline high LDL 160-189 mg/dL High LDL greater than 189 mg/dL Very high Performed By: #### P ILLAR LIPID, PILLAR CMP, PILLAR CBC, PILLAR TSH #### [address] #### NICOTINE QUAL #### [facility] , Triglyceride w/Reflex 72 mg/dL Normal 0-149 [facility] Comment on above: Result Comment: TRIG ATP III CLASSIFICATION TRIG less than 150 mg/dL Normal TRIG 150-199 mg/dL Borderline high TRIG 200-500 mg/dL High TRIG greater than 500 mg/dL Very high Standard traceable to the Center for Disease Conrtrol and Prevention (CDC) test method. Performed By: #### P ILLAR LIPID, PILLAR CMP, PILLAR CBC, PILLAR TSH #### [place] [address] [place] #### NICOTINE QUAL #### [facility] , VLDL CHOLESTEROL 14 mg/dL Normal [facility] Comment on above: Performed By: #### P ILLAR LIPID, PILLAR CMP, PILLAR CBC, PILLAR TSH #### [place] [address] [place] #### NICOTINE QUAL #### [facility] , Employee Thyroid Stim Hormon ruiz 06-27-2023 Employee Thyroid Stim Hormone 1.02 u[iU]/mL Normal 0.45-5.33 [facility] Comment on above: Result Comment: PERF ORMED BY: [facility] [address] [place] [address] PATHOLOGIST WATER TAXI OPERATOR DARREN HOLT M.D. Performed By: #### P ILLAR LIPID, PILLAR CMP, PILLAR CBC, PILLAR TSH #### [facility] [address] #### NICOTINE QUAL #### [facility] , Eosinophils Auto (Bld) [#/Vo l]Ordered By: Kirill Machuca on 06-27-2023 Eosinophils (Bld) [#/Vol] 0.1 10*3/uL 0.0-0.45 [facility] Eosinophils/100 WBC Auto (Bl d)Ordered By: Kirill Machuca on 06-27-2023 Eosinophils/100 WBC (Bld) 2.6 % . [facility] Erythrocyte distribution wid th Auto (RBC) [Ratio]Ordered By: Kirill Machuca on 06-27-2023 Erythrocyte distribution width (RBC) [Ratio] 13.3 % 11.9-15.3 [facility] Globulin Calc (S) [Mass/Vol] Ordered By: Kirill Machuca on 06-27-2023 Globulin (S) [Mass/Vol] 1.9 g/dL [facility] Glucose [Mass/volume] in Ser um or PlasmaOrdered By: Kirill Machuca on 06-27-2023 Glucose [Mass/Vol] 85 mg/dL 70-100 [facility] Hematocrit Auto (Bld) [Volum e fraction]Ordered By: Kirill Machuca on 06-27-2023 Hematocrit (Bld) [Volume fraction] 39.2 % 34.0-46.4 [facility] Hemoglobin [Mass/volume] in BloodOrdered By: Kirill Machuca on 06-27-2023 Hemoglobin (Bld) [Mass/Vol] 13.2 g/dL 11.8-15.4 [facility] Leukocytes [#/volume] correc derick for nucleated erythrocytes in Blood by Automated counOrdered By: Kirill Machuca on 06-27-2023 WBC corrected for nucl RBC Auto (Bld) [#/Vol] 5.0 10*3/uL 3.8-11.6 [facility] Lymphocytes Auto (Bld) [#/Vo l]Ordered By: Kirill Machuca on 06-27-2023 Lymphocytes (Bld) [#/Vol] 0.7 10*3/uL 1.00-4.8 [facility] Lymphocytes/100 WBC Auto (Bl d)Ordered By: Kirill Machuca on 06-27-2023 Lymphocytes/100 WBC (Bld) 14.6 % . [facility] MCH Auto (RBC) [Entitic mass ]Ordered By: Kirill Machuca on 06-27-2023 MCH (RBC) [Entitic mass] 31.2 pg 24.7-34.3 [facility] MCHC Auto (RBC) [Mass/Vol]Or dered By: Kirill Machuca on 06-27-2023 MCHC (RBC) [Mass/Vol] 33.7 g/dL 32.0-35.0 [facility] MCV Auto (RBC) [Entitic vol] Ordered By: Kirill Machuca on 06-27-2023 MCV (RBC) [Entitic vol] 92.5 fL 80-100 [facility] Monocytes Auto (Bld) [#/Vol] Ordered By: Kirill Machuca on 06-27-2023 Monocytes (Bld) [#/Vol] 0.3 10*3/uL 0.0-0.8 [facility] Monocytes/100 WBC Auto (Bld) Ordered By: Kirill Machuca on 06-27-2023 Monocytes/100 WBC (Bld) 6.1 % . [facility] Neutrophils Auto (Bld) [#/Vo l]Ordered By: Kirill Machuca on 06-27-2023 Neutrophils (Bld) [#/Vol] 3.8 10*3/uL 1.8-7.7 [facility] Neutrophils/100 WBC Auto (Bl d)Ordered By: Kirill Machuca on 06-27-2023 Neutrophils/100 WBC (Bld) 75.7 % . [facility] Nicotine Metabolite, Qualon 06-27-2023 Nicotine Metabolite Negative Normal Cutoff=25 [facility] Comment on above: Result Comment: Perf ormed at: BN - [facility] [address] [id number] Cold Roll Operator: Wes Cole MD, Phone: [phone] PERFORMED BY: [facility] [address] [place] [address] PATHOLOGIST WATER TAXI OPERATOR DARREN HOLT M.D. Performed By: #### P ILLAR LIPID, PILLAR CMP, PILLAR CBC, PILLAR TSH #### [facility] [address] #### NICOTINE QUAL #### [facility] , No Panel InformationOrdered By: Kirill Machuca on 06-27-2023 Estimated GFR (CKD-EPI) > 60.0 mL/Min [facility] Nicotine Metabolite Negative Cutoff=25 [facility] Comment on above: Performed at: [facility] - [facility] [address] [id number] Director: Wes Cole MD, Phone: [phone] Pharmacy Creatinine Clearance (Chem N/A [facility] Nucleated erythrocytes [Pres ence] in Blood by Automated countOrdered By: Kirill Machuca on 06-27-2023 Nucleated RBC Auto Ql (Bld) 0.0 /100{WBC} 0-0.5 [facility] Platelet mean volume Auto (B ld) [Entitic vol]Ordered By: Kirill aMchuca on 06-27-2023 Platelet mean volume (Bld) [Entitic vol] 8.8 fL 6.3-10.7 [facility] Platelets Auto (Bld) [#/Vol] Ordered By: Kirill Machuca on 06-27-2023 Platelets (Bld) [#/Vol] 183 10*3/uL 150-450 [facility] Potassium [Moles/volume] in Serum or PlasmaOrdered By: Kirill Machuca on 06-27-2023 Potassium [Moles/Vol] 4.3 mmol/L 3.5-5.1 [facility] Protein [Mass/volume] in Ser um or PlasmaOrdered By: Kirill Machuca on 06-27-2023 Protein [Mass/Vol] 6.4 g/dL 6.4-8.9 [facility] RBC Auto (Bld) [#/Vol]Ordere d By: Kirill Machuca on 06-27-2023 RBC (Bld) [#/Vol] 4.23 10*6/uL 3.60-5.00 [facility] Serum or plasma albumin/glob ulin mass ratioOrdered By: Kirill Machuca on 06-27-2023 Albumin/Globulin [Mass ratio] 2.4 {ratio} [facility] Serum or plasma anion gap de terminationOrdered By: Kirill Machuca on 06-27-2023 Anion gap [Moles/Vol] 8.3 mmol/L 6.0-15.0 [facility] Serum or plasma high density lipoprotein (HDL) cholesterol measurementOrdered By: Kirill Machuca on 06-27-2023 Cholesterol in HDL [Mass/Vol] 71 mg/dL 23-92 [facility] Comment on above: HDL CHOL ATP-III CLA SSIFICATION Cardiovascular RiskHDL > or equal to 60 mg/dL LOWHDL < 40 mg/dL HIGH Serum or plasma total choles terol/high density lipoprotein (HDL) cholesterol mass ratOrdered By: Kirill Machuca on 06-27-2023 Cholesterol.total/Flory sterol in HDL [Mass ratio] 2.8 {ratio} <5.0 [facility] Sodium [Moles/volume] in Ser um or PlasmaOrdered By: Kirill Machuca on 06-27-2023 Sodium [Moles/Vol] 141 mmol/L 136-145 [facility] Thyrotropin [Units/volume] i n Serum or PlasmaOrdered By: Kirill Machuca on 06-27-2023 TSH Qn 1.02 m[IU]/L 0.45-5.33 [facility] Triglyceride [Mass/volume] i n Serum or PlasmaOrdered By: Kirill Machuca on 06-27-2023 Triglyceride [Mass/Vol] 72 mg/dL 0-149 [facility] Comment on above: TRIG ATP III CLASSIF ICATIONTRIG less than 150 mg/dL NormalTRIG 150-199 mg/dL Borderline highTRIG 200-500 mg/dL High TRIG greater than 500 mg/dL Very highStandard traceable to the Center for Disease Conrtrol and Prevention (CDC) test method. Urea nitrogen [Mass/volume] in Serum or PlasmaOrdered By: Kirill Machuca on 06-27-2023 Urea nitrogen [Mass/Vol] 20 mg/dL 7-25 [facility] WBC Auto (Bld) [#/Vol]Ordere d By: Kirill Machuca on 06-27-2023 WBC (Bld) [#/Vol] 5.0 10*3/uL 3.8-11.6 [facility] MM screening mammo BI w/CADo n 06-25-2023 MM screening mammo BI w/CAD [facility] [address] Mammography Report Signed Patient: Clarita Rojas MR#: [id number] 70 : 1970 Acct:[id number] Age/Sex: 52 / F ADM Date: 06/25/23 Loc: [place] Room: Type: [facility] Attending Dr: Referral Self Copies to: Leora Zamudio DO NO FAMILY PHYSICIAN SELF,REFERRAL Ordering Provider: SELF,REFERRAL Date of Service: 06/25/23 MM/MM screening mammo BI w/CAD: SCREENING CLINICAL DATA: Screening for malignancy. SCREENING MAMMOGRAM - FULL FIELD DIGITAL WITH TOMOSYNTHESIS AND CAD COMPARISON:Mammograms dating back to 2019 Tomosynthesis craniocaudal and mediolateral oblique views of both breasts were obtained using low- dose digital technique. This examination was reviewed with the aid of CAD. The breast tissue is composed of scattered fibroglandular densities. There are no dominant masses, typically malignant calcifications or architectural distortion. There has been no significant interval change. MM/MM screening mammo BI w/CAD IMPRESSION: NO MAMMOGRAPHIC EVIDENCE OF MALIGNANCY. ROUTINE FOLLOW-UP IS RECOMMENDED IN ONE YEAR. RESULT CODE: 1 Negative DENSITY CODE: 2 (approximately 25-50% glandular) FOLLOW UP: 1YR The false-negative rate of mammography is approximately 10-percent. Management of a palpable abnormality must be based on clinical grounds. Patient was entered into a reminder system with a target due date for the next mammogram. Impression dictated by: Tye Morrissey Jr., D.O.06/25/2023 9:26 AM Dictation Location: [facility] Transcribed By: KAYLEE 06/25/23925 Dictated By: Tye Morrissey Jr, DO 06/25/23924 Signed By: 06/25/23925 Normal [facility] No Panel InformationOrdered By: Leora Zamudio on 06-13-2023 Thin Prep Pap Interpretation Note . [facility] Comment on above: TESTS RESULT FLAG UN ITS REF RANGE LAB - Clinician Provided Cytology Information No. of containers..01 ThinPrep VialDIAGNOSIS: 01 NEGATIVE FOR INTRAEPITHELIAL LESION OR MALIGNANCY. CELLULAR CHANGES ASSOCIATED WITH ATROPHY ARE PRESENT.Specimen adequacy: 01 Satisfactory for evaluation. Endocervical component may not be distinguished in cases of atrophy.Performed by: Rosa Hughes, Casting Coordinator (ASCP). 01Note: Note 01 The Pap smear is a screening test designed to aid in the detection of premalignant and malignant conditions of the uterine cervix. It is not a diagnostic procedure and should not be used as the sole means of detecting cervical cancer. Both false-positive and false-negative reports do occur.Test Methodology: Note 01 This liquid based ThinPrep(R) pap test was screened with the use of an image guided system.. 01 The HPV DNA reflex criteria were not met with this specimen result therefore, no HPV testing was performed. -------- FLAG LEGEND: L-Low Normal,H-High Normal,LL-Alert Low,HH-Alert High <-Panic Low,>-Panic High,A-Abnormal,AA-Critical Abnormal ------Performed at:01 WB [facility] [place] [facility], [place] [address] Senait De La Cruz MD, Rstsrrthw at: WB - [facility] [id number] [facility] [place] [id number] Director: Senait De La Cruz MD, Phone: [phone] Pap IG, rfx HPV all pthon Pap Image Guided Note Normal . [facility] Comment on above: Result Comment: TEST S RESULT FLAG UNITS REF RANGE LAB Clinician Provided Cytology Information No. of containers..01 ThinPrep Vial DIAGNOSIS: 01 NEGATIVE FOR INTRAEPITHELIAL LESION OR MALIGNANCY. CELLULAR CHANGES ASSOCIATED WITH ATROPHY ARE PRESENT. Specimen adequacy: 01 Satisfactory for evaluation. Endocervical component may not be distinguished in cases of atrophy. Performed by: Rosa Hughes, Casting Coordinator (ASCP) . 01 Note: Note 01 The Pap smear is a screening test designed to aid in the detection of premalignant and malignant conditions of the uterine cervix. It is not a diagnostic procedure and should not be used as the sole means of detecting cervical cancer. Both false-positive and false-negative reports do occur. Test Methodology: Note 01 This liquid based ThinPrep(R) pap test was screened with the use of an image guided system. . 01 The HPV DNA reflex criteria were not met with this specimen result therefore, no HPV testing was performed. FLAG LEGEND: L-Low Normal,H-High Normal,LL-Alert Low,HH-Alert High <-Panic Low,>-Panic High,A-Abnormal,AA-Critical Abnormal Performed at: [address] [facility] [address] [address] Senait De La Cruz MD, Performed at: WB - [facility] [address] [id number] Cold Roll Operator: Senait De La Cruz MD, Phone: [phone] PERFORMED BY: [place] [address] [place] [address] PATHOLOGIST WATER TAXI OPERATOR DARREN HOLT M.D. Performed By: #### P AP [id number] #### [facility] , COVID Quick Testingon 2021 Result [employer] Other Inductly 09-11-2021 CNOVSP Visit (SP) Office ([place]) CLARITA ROJAS ([id number]) 1970 F Date Time Provider Department 09/11/21 3:45 PM MONTSE LAN During your visit today, we recorded the following information about you: Temperature Pulse Respiration Blood pressure 97.3 degrees 81/minute 16/minute 99/69 Weight Height 51.3 kg 1.6 m Montse Lan MD 09/13/2021 1:04 PM Signed PATIENT NAME: Clarita Rojas DATE: 09/11/2021 PRIMARY CARE PHYSICIAN:Garima Miller DO OTHER PHYSICIANS: Dr. Contreras, Dr. Sabillon Portions of this encounter note have been copied from my note from 09/17/2019 and has been updated where appropriate, and reflect my current medical decision making from today. CC: This is a 50 year old female with a history of Hodgkin's disease, seen for scheduled follow-up.. INTERIM HISTORY: Since the patient's last visit here she apparently underwent a routine screening mammogram in April 2020, and was found to have a suspicious abnormality in the left breast. Left breast ultrasound 05/18/2020 was negative. Diagnostic left mammogram 11/30/2019 was negative. Bilateral screening mammogram 06/13/2021 also negative. Currently the patient has no palpable lesions or other abnormalities involving her breasts. She has had no other significant medical changes. Currently she feels well. Review of systems entirely negative. 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 She has a 20-year-old daughter currently in college, and they are contemplating checking her BRCA status based on the fact that the patient's sister and mother are BRCA positive. The patient has been checked for BRCA twice in the past and her results are negative. MEDICATIONS: ibuprofen (MOTRIN) 800 mg tablet Take 1 tablet by mouth every 8 hours as needed for Pain. Herbal Drugs tab Take by mouth. ALLERGIES: Patient has no known allergies. PAST MEDICAL HISTORY: PAST MEDICAL HISTORY Diagnosis Date - Hodgkin's disease, unspecified IIB PAST SURGICAL HISTORY: PAST SURGICAL HISTORY Procedure Laterality Date - MEDIASTINOSCOPY WITH OR W/O BIOPSY REVIEW OF SYSTEMS: GENERAL: No weight loss, malaise or fevers. HEENT: Negative for frequent or significant headaches, No changes in hearing or vision, no nose bleeds or other nasal problems RESPIRATORY: Negative for cough, wheezing or shortness of breath. CARDIOVASCULAR: Negative for chest pain, leg swelling or palpitations. GI: Negative for abdominal discomfort, blood in stools or black stools or change in bowel habits : No history of dysuria, frequency or incontinence MUSCULOSKELETAL: Negative for: joint pain or swelling, back pain and muscle pain SKIN: Negative for lesions, rash, and itching. HEMATOLOGY/LYMPHOLOGY : Negative for prolonged bleeding, bruising easily or swollen nodes. NEURO: No history of headaches, syncope, paralysis, seizures or tremors PHYSICAL EXAM: Vitals: BP 99/69 Pulse 81 Temp 36.3 ?C (97.3 ?F) (Temporal) Resp 16 Ht 160 cm (5' 2.99 ) Wt 51.3 kg (113 lb) SpO2 99% BMI 20.02 kg/m? General appearance: well appearing, alert, in no acute distress, well-hydrated, well nourished Skin: skin color, texture, turgor normal, no suspicious rashes or lesions Head: normal Eyes: Anicteric sclera. Pupils are equally round and reactive to light. Extraocular movements are intact. Ears: negative findings: external ears normal to inspection and palpation Oropharynx: negative Neck: Supple, no adenopathy; thyroid symmetric, normal size Lymph Nodes: No Submandibular, cervical, supraclavicular, axillary, or inguinal lymphadenopathy present Breast: NL Symmetry, No Masses/Tenderness/Dis charge, No Skin Changes Back: no tenderness to palpation Lungs: clear to auscultation, no wheezing or rhonchi Heart: Negative. RRR without murmur, gallop, or rubs. No ectopy. Abdomen: Normal abdominal exam, Abdomen soft, non-tender. Bowel sounds normal. No masses, organomegaly Rectal: Not done Extremities: Extremities normal. No deformities, edema, or skin discoloration. Good capillary refill. Musculoskeletal: No joint swelling, deformity, or tenderness. Peripheral pulses: Normal RADIOLOGIC DATA: 06/13/2021 Mammogram ([facility] No mammographic evidence of malignancy. Routine follow-up in 1 year recommended. 09/07/2013 CT CAP ([facility]) Stable soft tissue attenuation along with a few foci of calcification in the anterior mediastinum. Stable small hypodense nodule in the left lobe of the thyroid. Redemonstration of hepatic and left renal cysts. Stable left suprarenal mass demonstrating low soft tissue or fluid attenuation. Small bilateral ovarian cysts along with a small amount of free fluid in the pelvis, likely physiologic. LABORATORY DATA: Hemoglobin (g/dL) Date Value 09/11/2021 12.9 Hematocrit (%) Date Value 09/11/2021 38.6 WBC (more content not included)... Normal [facility] Comp Metabolic Panelon 09-11 Albumin [Mass/Vol] 4.7 g/dL Normal 3.9-4.9 [facility] ALP [Catalytic activity/Vol] 68 U/L Normal 34-123 [facility] ALT [Catalytic activity/Vol] 8 U/L Normal 7-38 [facility] Anion gap [Moles/Vol] 9 mmol/L Normal 9-18 [facility] AST [Catalytic activity/Vol] 10 U/L Low 13-35 [facility] Bilirubin [Mass/Vol] 0.4 mg/dL Normal 0.2-1.3 [facility] Calcium [Mass/Vol] 10.1 mg/dL Normal 8.5-10.2 [facility] Chloride [Moles/Vol] 101 mmol/L Normal 97-105 [facility] [facility] CO2 [Moles/Vol] 29 mmol/L Normal 22-30 [facility] Creatinine [Mass/Vol] 0.81 mg/dL Normal 0.58-0.96 [facility] eGFR- Amer. >60 Normal [facility] eGFR-All Other Races >60 Normal [facility] Comment on above: Result Comment: eGFR (Estimated GFR) Units of measure: mL/min/1.73 meters squared eGFR is derived from the reexpressed MDRD Study equation using the following parameters: serum creatinine, age, gender and race. The creatinine assay has been calibrated to be traceable to IDMS. An eGFR <60 mL/min/1.73m2 for >3 months is consistent with chronic kidney disease. Refer to KDOQI guidelines for clinical interpretation. In patients with unstable renal function, e.g. those with acute kidney injury, the eGFR may not accurately reflect actual GFR. Note: On 11/25/2021, the eGFR calculation will be updated to the NKF-ASN Task Force recommended 2020 CKD-EPI creatinine equation which does not include a race variable. For more information or to access a 2020 CKD-EPI calculator, visit the National Kidney Foundation website at kidney.org/professionals/kdoqi/gfr_calculator. Glucose [Mass/Vol] 116 mg/dL High 74-99 [facility] Comment on above: Result Comment: The [place] Diabetes Association (ADA) provides guidance for cutoff values for fasting glucose and random glucose. The ADA defines fasting as no caloric intake for at least 8 hours. Fasting plasma glucose results between 100 to 125 mg/dL indicate increased risk for diabetes (prediabetes). Fasting plasma glucose results greater than or equal to 126 mg/dL meet the criteria for diagnosis of diabetes. In the absence of unequivocal hyperglycemia, results should be confirmed by repeat testing. In a patient with classic symptoms of hyperglycemia or hyperglycemic crisis, random plasma glucose results greater than or equal to 200 mg/dL meet the criteria for diagnosis of diabetes. Reference: Standards of Medical Care in Diabetes 2016, [place] Diabetes Association. Diabetes Care. 2016.39(Suppl 1). Potassium [Moles/Vol] 3.6 mmol/L Low 3.7-5.1 [facility] Protein [Mass/Vol] 7.1 g/dL Normal 6.3-8.0 [facility] Sodium [Moles/Vol] 139 mmol/L Normal 136-144 [facility] Urea nitrogen [Mass/Vol] 19 mg/dL Normal 7-21 [facility] Remote CBCDIF (for [facility] use o nly)on 09-11-2021 Abs Baso 0.05 k/uL Normal <0.11 [facility] Abs Christian 0.37 k/uL Normal <0.87 [facility] Abs Neut 4.51 k/uL Normal 1.45-7.50 [facility] Absolute nRBC <0.01 Normal <0.01 [facility] Basophils/100 WBC (Bld) 0.8 % Normal C [facility] DTYPE Auto Diff Normal [facility] Eosinophils (Bld) [#/Vol] 0.11 10*3/uL Normal <0.46 [facility] Eosinophils/100 WBC (Bld) 1.8 % Normal [facility] Erythrocyte distribution width (RBC) [Ratio] 12.1 % Normal 11.5-15.0 [facility] Hematocrit (Bld) [Volume fraction] 38.6 % Normal 36.0-46.0 [facility] Hemoglobin (Bld) [Mass/Vol] 12.9 g/dL Normal 11.5-15.5 [facility] Lymphocytes (Bld) [#/Vol] 0.92 10*3/uL Low 1.00-4.00 [facility] Lymphocytes/100 WBC (Bld) 15.4 % Normal [facility] MCH 31.5 pG Normal 26.0-34.0 [facility] MCHC (RBC) [Mass/Vol] 33.4 g/dL Normal 30.5-36.0 [facility] MCV (RBC) [Entitic vol] 94.1 fL Normal 80.0-100.0 C [facility] Monocytes/100 WBC (Bld) 6.2 % Normal C [facility] Neutrophils/100 WBC (Bld) 75.8 % Normal [facility] NRBCs 0.0 /100 WBC Normal 0 [facility] Platelet mean volume (Bld) [Entitic vol] 10.3 fL Normal 9.0-12.7 [facility] Platelets (Bld) [#/Vol] 205 10*3/uL Normal 150-400 [facility] RBC (Bld) [#/Vol] 4.10 10*6/uL Normal 3.90-5.20 [facility] WBC (Bld) [#/Vol] 5.98 10*3/uL Normal 3.70-11.00 [facility] Vital Signs Date Time Vital Sign Value Performing Clinician Faci lity 09-18-2023 15:20-0500 Body height 160.02 cm DO Leora Rinkes Work Phone: [facility] 09-18-2023 15:20-0500 Body temperature 98.3 [degF] DO Leora Rinkes Work Phone: [facility] 09-18-2023 15:20-0500 Body weight 53.52 kg DO Leora Rinkes Work Phone: [facility] 09-18-2023 15:20-0500 Diastolic blood pressure 67 mm[Hg] DO Leora Rinkes Work Phone: [facility] 09-18-2023 15:20-0500 Heart rate 81 /min DO Leora Rinkes Work Phone: [facility] 09-18-2023 15:20-0500 Respiratory rate 16 /min DO Leora Rinkes Work Phone: [facility] 09-18-2023 15:20-0500 SaO2% (BldA) [Mass fraction] 100 % DO Leora Rinkes Work Phone: [facility] 09-18-2023 15:20-0500 Systolic blood pressure 123 mm[Hg] DO Leora Rinkes Work Phone: [facility] Encounters Encounter Date Encounter Type Care Provider Facility Start: 09-18-2023 End: 09-18-2023 Emergency department patient visit Garima Miller Facility:[facility] Start: 09-18-2023 End: 09-18-2023 Emergency department patient visit DO Leora Zamudio Work Phone: [facility] Work Phone: Start: 06-27-2023 End: 06-27-2023 ambulatory PHYSICIAN NO [facility] Facility:[facility] Start: 06-27-2023 End: 06-27-2023 ambulatory PHYSICIAN NO [facility] Work Phone: Start: 06-27-2023 End: 06-27-2023 Departed Referred PHYSICIAN NO [facility]-Employee Benefit Screening Start: 06-25-2023 End: 06-25-2023 ambulatory PHYSICIAN NO FAMILY Facility:[facility] Start: 06-25-2023 End: 06-25-2023 ambulatory PHYSICIAN NO [facility] Work Phone: Start: 06-25-2023 End: 06-25-2023 Patient encounter procedure PHYSICIAN NO [facility] Work Phone: Start: 06-13-2023 End: 06-13-2023 ambulatory Leora Rinkes Facility:[facility] Start: 06-13-2023 End: 06-13-2023 ambulatory DO Leora Rinkes Work Phone: [facility] Work Phone: Start: 06-13-2023 End: 06-13-2023 Departed Referred DO Leora Rinkes Work Phone: [facility] Work Phone: Start: 05-31-2022 End: 05-31-2022 Departed Referred DO Garima Petznick Work Phone: [facility] Start: 03-15-2022 End: 03-15-2022 Patient encounter procedure DO Garima Petznick Work Phone: [facility] [address] Start: 10-01-2021 End: 10-01-2021 ambulatory Joselin Cowan [employer] Other Start: 10-01-2021 Office outpatient visit 5 minutes Joselin Cowan [facility] [address] Procedures Date Procedure Procedure Detail Performing Clinician Start: 06-25-2023 Screening mammograph y of bilateral breasts PHYSICIAN NO FAMILY Start: 03-15-2022 X-ray of lumbar spin e, four or more views DO Garima Petznick Work Phone: Plan of Treatment Date Care Activity Detail Author Start: 06-27-2023 [facility] Patient referral [facility] Work Phone: [facility] Work Phone: Immunizations Immunization Date Immunization Notes Care Provider Fa anjana 10-19-2020 COVID-19 mRNA-1273 (Moderna) DO Garima Petznick Work Phone: [facility] 09-21-2020 COVID-19 mRNA-1273 (Moderna) DO Garima Petznick Work Phone: [facility] Payers Date Payer Category Payer Self-pay [id number] 2023 Unknown [id number] Unknown [id number] 31 Unknown [id number] 31 Unknown [id number] 31 Unknown [id number] Worker's Compensation [facility] Ind [id number] Social History Date Type Detail Facility Unknown if ever smoked [facility] [employer] Other Sex Assigned At Sex Assigned At Bir th [facility] [employer] Other Start: 06-21-2021 End: 09-18-2023 Tobacco smoking status NHIS Never smoked tobacco (finding) [facility] Start: 1970 Sex Assigned At Female F [facility] Evaluation note 10-01-2021 Note Date & Type Note Facility 10-01-2021 Evaluation note Encounter Date Diagnosis Assessment Notes Sep, Contact with and (suspected) exposure to other viral communicable diseases (ICD-10 - Z20.828) covid test positive, see above tx plan. Sep, COVID (ICD-10 - U07.1) Pt was provided with positive covid test result with specific quarantine dates in office today. Nurse provided pt with test result sheet and otc treatment guideline sheet, which included quarantine guidance and f/u instructions. Paperwork also discusses warning sx that require need for ER visit. Otherwise pt is to f/u with pcp. Sep, Other Additional time spent conducting pre-visit phone call, screening for symptoms, instructions on social distancing, application and removal of PPE, and cleaning of examination room, equipment and supplies was preformed. Patient education given for testing methodology and results. Patient care instructions given in writting by CDC Care At Home document. [facility] [employer] Other Progress note 09-11-2021 Note Date & Type Note Facility 09-11-2021 Note HNO ID: [id number] Author: Montse Lan MD Service: ? Author Type: Physician Type: Progress Notes Filed: 09/13/2021 1:04 PM Note Text: PATIENT NAME: Clarita Rojas DATE: 09/11/2021 PRIMARY CARE PHYSICIAN:Garima Miller DO OTHER PHYSICIANS: Dr. Contreras, Dr. Sabillon Portions of this encounter note have been copied from my note from 09/17/2019 and has been updated where appropriate, and reflect my current medical decision making from today. CC: This is a 50 year old female with a history of Hodgkin's disease, seen for scheduled follow-up.. INTERIM HISTORY: Since the patient's last visit here she apparently underwent a routine screening mammogram in April 2020, and was found to have a suspicious abnormality in the left breast. Left breast ultrasound 05/18/2020 was negative. Diagnostic left mammogram 11/30/2019 was negative. Bilateral screening mammogram 06/13/2021 also negative. Currently the patient has no palpable lesions or other abnormalities involving her breasts. She has had no other significant medical changes. Currently she feels well. Review of systems entirely negative. 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 She has a 20-year-old daughter currently in college, and they are contemplating checking her BRCA status based on the fact that the patient's sister and mother are BRCA positive. The patient has been checked for BRCA twice in the past and her results are negative. MEDICATIONS: ibuprofen (MOTRIN) 800 mg tablet Take 1 tablet by mouth every 8 hours as needed for Pain. Herbal Drugs tab Take by mouth. ALLERGIES: Patient has no known allergies. PAST MEDICAL HISTORY: PAST MEDICAL HISTORY Diagnosis Date - Hodgkin's disease, unspecified IIB PAST SURGICAL HISTORY: PAST SURGICAL HISTORY Procedure Laterality Date - MEDIASTINOSCOPY WITH OR W/O BIOPSY REVIEW OF SYSTEMS: GENERAL: No weight loss, malaise or fevers. HEENT: Negative for frequent or significant headaches, No changes in hearing or vision, no nose bleeds or other nasal problems RESPIRATORY: Negative for cough, wheezing or shortness of breath. CARDIOVASCULAR: Negative for chest pain, leg swelling or palpitations. GI: Negative for abdominal discomfort, blood in stools or black stools or change in bowel habits : No history of dysuria, frequency or incontinence MUSCULOSKELETAL: Negative for: joint pain or swelling, back pain and muscle pain SKIN: Negative for lesions, rash, and itching. HEMATOLOGY/LYMPHOLOGY: Negative for prolonged bleeding, bruising easily or swollen nodes. NEURO: No history of headaches, syncope, paralysis, seizures or tremors PHYSICAL EXAM: Vitals: BP 99/69 Pulse 81 Temp 36.3 ?C (97.3 ?F) (Temporal) Resp 16 Ht 160 cm (5' 2.99 ) Wt 51.3 kg (113 lb) SpO2 99% BMI 20.02 kg/m? General appearance: well appearing, alert, in no acute distress, well-hydrated, well nourished Skin: skin color, texture, turgor normal, no suspicious rashes or lesions Head: normal Eyes: Anicteric sclera. Pupils are equally round and reactive to light. Extraocular movements are intact. Ears: negative findings: external ears normal to inspection and palpation Oropharynx: negative Neck: Supple, no adenopathy; thyroid symmetric, normal size Lymph Nodes: No Submandibular, cervical, supraclavicular, axillary, or inguinal lymphadenopathy present Breast: NL Symmetry, No Masses/Tenderness/Discharge, No Skin Changes Back: no tenderness to palpation Lungs: clear to auscultation, no wheezing or rhonchi Heart: Negative. RRR without murmur, gallop, or rubs. No ectopy. Abdomen: Normal abdominal exam, Abdomen soft, non-tender. Bowel sounds normal. No masses, organomegaly Rectal: Not done Extremities: Extremities normal. No deformities, edema, or skin discoloration. Good capillary refill. Musculoskeletal: No joint swelling, deformity, or tenderness. Peripheral pulses: Normal RADIOLOGIC DATA: 06/13/2021 Mammogram ([facility]) No mammographic evidence of malignancy. Routine follow-up in 1 year recommended. 09/07/2013 CT CAP ([facility]) Stable soft tissue attenuation along with a few foci of calcification in the anterior mediastinum. Stable small hypodense nodule in the left lobe of the thyroid. Redemonstration of hepatic and left renal cysts. Stable left suprarenal mass demonstrating low soft tissue or fluid attenuation. Small bilateral ovarian cysts along with a small amount of free fluid in the pelvis, likely physiologic. LABORATORY DATA: Hemoglobin (g/dL) Date Value 09/11/2021 12.9 Hematocrit (%) Date Value 09/11/2021 38.6 WBC (k/uL) Date Value 09/11/2021 5.98 Platelet Count (k/uL) Date Value 09/11/2021 205 ASSESSMENT/PLAN: 1 201.90 Hodgkin's disease Stage IIB nodular sclerosing Hodgkin's disease diagnosed December 2006. Status post chemotherapy with ABVD x 6 cycles December 2006 through June 2007. The patient a (more content not included)... [facility] Evaluation note Note Date & Type Note Facility Evaluation note No assessment information availa [facility] Work Phone: History general Narrative - Reported Note Date & Type Note Facility History general Narrative - Reported Type Medical History hodgkins lymphoma Surgical History lymph node biopsy Hospitalization History [employer] Other Summary Purpose Family History No Family History Records Found Relationship Condition Age at Onset Recorded Date/T aki grandparent Malignant neoplasm of uterus Unknown grandparent Malignant neoplasm of colon Unknown Not Specified Malignant neoplasm of breast Unknown Advance Directives No Advanced Directives Records Found Advance Directive Response Recorded Date/ Time Advance Directives No February 10 3:07pm Advance Directive Response Recorded Date/ Time Advance Directives No February 10 2:07pm Chief Complaint and Reason for Visit Chief Complaint M54.50 Z12.4 Chief Complaint Z12.4 Screening Chief Complaint Z12.4 Screening Pillars Chief Complaint Screening Pillars nausea, congestion Additional Source Comments INFORMATION SOURCE (unrecogn ized section and content) DATE CREATED AUTHOR 10/23/2021 [facility] DATE CREATED AUTHOR AUTHOR'S ORGANIZ ATION 09/19/2023 [facility] REASON FOR VISIT (unrecogniz ed section and content) FLORINDA PERALTA [facility] Care Teams (unrecognized sec tion and content) Team Status: Inactive Member Role Status Dates Garima Miller DO Primary Care Provider Active Leora Zamudio DO Attending Provider Active Team Status: Inactive Member Role Status Dates Garima Miller DO Primary Care Provider, Attending Provider Active Team Status: Active Member Role Status Dates Garima Miller DO Primary Care Provider Active Team Status: Inactive Member Role Status Dates Leora Zamudio DO Attending Provider Active Team Status: Active Member Role Status Dates PHYSICIAN NO FAMILY Primary Care Provider Active Team Status: Inactive Member Role Status Dates Referral Self Attending Provider Active Leora Zamudio DO Referring Provider Active PHYSICIAN NO FAMILY Primary Care Provider Active Team Status: Inactive Member Role Status Dates Leora Zamudio DO Attending Provider Active PHYSICIAN NO FAMILY Primary Care Provider Active Team Status: Inactive Member Role Status Dates PHYSICIAN NO FAMILY Primary Care Provider Active Kirill Machuca DO [facility] Attending Provider Active Team Status: Inactive Member Role Status Dates Garima Petznick , DO Primary Care Provider Active Maximus Albarran , DO Emergency Provider Active Goals (unrecognized section and content) Goals may be documented in a n alternate section FOR RECORDS PERTAINING TO PATIENTS WHO ARE OR HAVE BEEN ENROLLED IN A CHEMICAL DEPENDENCY/SUBSTANCEABUSE PROGRAM, SOME INFORMATION MAY BE OMITTED. This clinical summary was aggregated from multiple sources. Caution should be exercised in using it in the provision of clinical care. This summary normalizes information from multiple sources, and as a consequence, information in this document may materially change the coding, format and clinical context of patient data. In addition, data may be omitted in some cases. CLINICAL DECISIONS SHOULD BE BASED ON THE PRIMARY CLINICAL RECORDS. [facility] [employer] [facility]. provides no warranty or guarantee of the accuracy or completeness of information in this document.
== END 2023-09-18 17:32 | disposition home or self-care (01) ==
PROVIDERS: Nurse Practitioner Family; Emergency Provider Emergency Medicine; PCP Family Medicine
DX: U07.1 COVID-19 (principal); R11.0 Nausea
CPT/HCPCS: 36415; 80048; 85025; 87804; 87811; 96374; 99285

== ENCOUNTER 2025-08-17 11:51 | Emergency (ER) | payer OTHER, SELFPAY ==
[2025-08-17 12:01] VITALS: BP 143/80; PULSE 70; TEMP 36.7; O2SAT 100; BMI 21.2
--- OUTSIDE RECORDS SUMMARY | 2025-08-17 12:01 | XMS_ITS | CCD ---
Author Organization [facility] Care Team Providers Care Distribution Coordinator Name Role Phone Joselin Cowan Unavailable Petmaria esther, DO Garima Primary Care Provider Petmaria esther, DO Garima Attending Provider Robb, DO Leora Attending Provider Robb, DO Corey Attending Provider NO FAMILY, PHYSICIAN Primary Care Provider Unava ilable Self, Referral Attending Provider Unavailable Robb, DO Corey Referring Provider DO Kirill Machuca Attending Provider Self, Referral Attending Provider Unavailable Cherellekes, DO Corey Referring Provider NO FAMILY, PHYSICIAN Primary Care Provider Unava ilable DO Kirill Machuca Attending Provider Petmaria esther, DO Garima Primary Care Provider DO Maximus Albarran Emergency Provider Petmaria esther, DO Garima Primary Care Provider Sven [facility], DO Kirill Bee Attending Provider PetGarima mayo DO M Primary Care Provider Robb, DO Leora Attending Provider DO Leora Zamudio Attending Provider Petvirgieick, DO Garima Primary Care Provider [phone] Petznritu MOORE, Garima Primary Care Provider Kuns [facility] Kirill MOORE Attending Provider Garima Miller DO Unavailable [phone] Petznick DO, Garima Primary Care Provider Petznick DO, Garima Attending Provider [phone] Rinkes DO, Leora Attending Provider [phone] Rinkes, Leora Admitting Unavailable Rinkes, Leora Attending Unavailable Petznick, Garima Primary Care Unavailable Rinkes, Leora Attending Unavailable Rinkes, Leora Admitting Unavailable Petznick, Garima Attending Unavailable Petznick, Garima Primary Care Unavailable Petznick, Garima Admitting Unavailable Petznick, Garima Primary Care Unavailable Kuns - [facility], Kirill P Attending Unavailable Kuns - [facility], Kirill P Admitting Unavailable PETZNICK, GARIMA M Attending Unavailable PETZNICK, GARIMA M Referring Unavailable RINKES, LEORA E Attending Unavailable PETZNICK, GARIMA M Attending Unavailable MURCEK, CHAD W Attending Unavailable Allergies Allergy ClassificationReported Allergen(s)Allergy TypeDate of OnsetReaction(s) Facility (19 sources)CodeineDrug [id number] Medications Current Medications MedicationDrug Class(es)DatesSig (Normalized)Sig (Original)escitalopram 5 mg oral tablet (11 sources)Serotonin Reuptake InhibitorStart: 34-25-5631nfwn 1 tablet by mouth once dailyescitalopram (Lexapro) 5 MG tablet Indications: Anxiety Take 1 tablet (5 mg) by mouth Daily 90 tablet 3 05/25/2025 ActivepredniSONE 10 mg oral tablet (1 source)Start: 88-12-1939tmdsjatsgh 10 mg 5 tablets for 2 days, 4 tablets x2 days, then 3 x2 days, 2 x2 days, 1 x2 days Orally as directed for 10 days Apr, Activepromethazine hydrochloride 12.5 mg oral tablet (4 sources)PhenothiazineStart: 07-26-2023 End: 66-19-8435htur 1 tablet by mouth every six hours as needed for nausea and vomiting and nausea and nauseapromethazine (Phenergan) 12.5 MG tablet Indications: Nausea Take 1 tablet (12.5 mg) by mouth every 6 (six) hours if needed for nausea or vomiting. 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 Past or Other Problems Problem ClassificationProblemDateDocumented DateEpisodic/ChronicHodgkin`s disease (19 sources)Hodgkin's disease (clinical); Translations: [Hodgkin lymphoma, unspecified, unspecified site]Onset: 09-25-2012 Resolved: [id number] and screening for infectious disease (1 source)Contact with and (suspected) exposure to other viral communicable diseasesOnset: 10-01-2021 Resolved: 00-71-9012QnjryfhsIsxdn screening for suspected conditions (not mental disorders or infectious disease) (20 sources)Mammography abnormal; Translations: [Other abnormal and inconclusive findings on diagnostic imagingof breast]Onset: 294684-31-7650Jlqlfdtd Viral infection (1 source)COVID-19Onset: 10-01-2021 Resolved: 10-01-2021 Results Test NameValueInterpretationReference RangeFacilityPap IG, rfx HPV all pthon 12-64-0619Rdr Image GuidedNoteNormal.[facility] Physician GroupComment on above:Result Comment: TESTS RESULT FLAG UNITS REF RANGE LAB Clinician Provided Cytology Information No. of containers..01 ThinPrep Vial DIAGNOSIS: 01 NEGATIVE FOR INTRAEPITHELIAL LESION OR MALIGNANCY. CELLULAR CHANGES ASSOCIATED WITH ATROPHY ARE PRESENT. Specimen adequacy: 01 Satisfactory for evaluation. Endocervical component may not be distinguished in cases of atrophy. Performed by: 01 Manuel Goode Germination Worker ([facility]) . 01 Note: Note 01 The Pap [...] This liquid based ThinPrep(R) pap test was interpreted using the KaraokeSmart.co(R) GenGolf Pipeline(TM) Cervical Algorithm whole slide imaging system. . 01 The HPV DNA reflex criteria were not met with this specimen result therefore, no HPV testing was performed. FLAG LEGEND: L-Low Normal,H-High Normal,LL-Alert Low,HH-Alert High <-Panic Low,>-Panic High,A-Abnormal,AA-Critical Abnormal Performed at: 01 [facility] [address] [id number] Senait De La Cruz MD, Performed at: - [facility] [address] [id number] Corporate Relations Director: Senait De La Cruz MD, Phone: [phone] PERFORMED BY: [address] [place] [address] PATHOLOGIST DIVERSIFIED CROPS I FARMWORKER ZHOU PETERS M.D.Performed By: #### PAP [id number] #### [facility] , thyroidon [id number] thyroidFAYETTE COUNTY [place] [address] Ultrasound Report Signed Patient: Clarita Aguilera MR#: [id number] : 1970 Acct:[id number] Age/Sex: 54 / F ADM Date: 06/01/25 Loc: Room: Type: [facility] CL Attending Dr: Garima Miller DO Ordering Provider: Garima Miller DO Date of Service: 06/01/25 US/US thyroid: enlarged thyroid Copies to: Garima Miller DO Thyroid Ultrasound HISTORY: Enlarged thyroid COMPARISON: None The RIGHT lobe measures 5.1 x 1.5 x 2.0cm. LEFT lobe measures 5.4 x 1.4 x 1.8 cm. Isthmus has an AP dimension of 0.1cm. Right superior anechoic nodule with solid component measures up to 12 mm. Right mid hypoechoic nodule measures up to 13 mm. Additional right mid hypoechoic nodule measures up to 7 mm.. Left superior hypoechoic nodule measures up to 1.4 cm. Left mid hypoechoic nodule measures up to 6 mm. No microcalcifications identified. Symmetric blood flow of the thyroid gland identified. US/US thyroid IMPRESSION: Bilateral thyroid nodules. Predominantly cystic nodules measuring up to 12 mm. Predominantly solid nodules measuring up to 14 mm. One-year follow-up assessment recommended. Impression dictated by: Thanh Frazier M.D. 06/01/2025 4:54 PM Dictation Location: [place] [address] Tech: Carmita Felder Transcribed By: KAYLEE 06/01/25 165 Dictated By: Thanh Frazier DO 06/01/25 1648 Signed By: 06/01/25 [facility] Physician GroupAlanine aminotransferase [Enzymatic activity/volume] in Serum or PlasmaOrdered By: Kirill Machuca on 45-73-3679TQL [Catalytic activity/Vol]Alanine aminotransferase [Enzymatic activity/volume] in Serum or Plasma-[facility] CenterAlbumin [Mass/volume] in Serum or Plasma by Bromocresol green (BCG) dye binding metho Ordered By: Kirill Machuca on 66-38-1305Qtnodoi BCG dye [Mass/Vol]Albumin [Mass/volume] in Serum or Plasma by Bromocresol green (BCG) dye binding metho 3.5-5.7FThe Jewish HospitalAlkaline phosphatase [Enzymatic activity/volume] in Serum or PlasmaOrdered By: Kirill Machuca on 48-33-3150LCN [Catalytic activity/Vol]Alkaline phosphatase [Enzymatic activity/volume] in Serum or Bqlxao20-170IpcubtejuDayton Va Medical CenterAspartate aminotransferase [Enzymatic activity/volume] in Serum or PlasmaOrdered By: Kirill Machuca on 14-43-6436XWV [Catalytic activity/Vol]Aspartate aminotransferase [Enzymatic activity/volume] in Serum or CayyucGwg09-65WpubnwhieDayton Va Medical Center Basophils Auto (Bld) [#/Vol]Ordered By: Kirill Machuca on 81-90-8784Zqkcwkuay (Bld) [#/Vol]Automated basophil count0.0-0.2FThe Jewish Hospital Basophils/100 WBC Auto (Bld)Ordered By: Kirill Machuca on 19-73-3768Rwryxxixm/100 WBC (Bld)Automated basophil %.[facility] Medical CenterBilirubin.total [Mass/volume] in Serum or PlasmaOrdered By: Kirill Machuca on 20-35-2791Xfvzbprgu [Mass/Vol]Bilirubin.total [Mass/volume] in Serum or Plasma0.3-1.0[facility] CenterCalcium [Mass/volume] in Serum or PlasmaOrdered By: Kirill Machuca on 60-36-0216Tcctzaa [Mass/Vol]Calcium [Mass/volume] in Serum or Plasma 8.6-10.3FThe Jewish HospitalCarbon dioxide, total [Moles/volume] in Serum or PlasmaOrdered By: Kirill Machuca on 91-32-5923OX8 [Moles/Vol]Carbon dioxide, total [Moles/volume] in Serum or Xzmadf90.0-31.0[facility] Medical CenterChloride [Moles/volume] in Serum or PlasmaOrdered By: Kirill Machuca on 64-34-1764Vckjzbjh [Moles/Vol]Chloride [Moles/volume] in Serum or Plasma 98-107[facility] CenterCholesterol [Mass/volume] in Serum or PlasmaOrdered By: Kirill Machuca on 31-79-8765Wwjawgvempi [Mass/Vol]Cholesterol [Mass/volume] in Serum or RhkdnpRzqd873-455LpqmwguajDayton Va Medical Center Comment on above:Chol less than 200 mg/dl low riskChol 201-239 mg/dl borderline riskChol 240 mg/dl and greater high riskCholesterol in HDL [Mass/volume] in Serum or PlasmaOrdered By: Kirill Machuca on 09-85-4513Jluybzimxka in HDL [Mass/Vol] Serum or plasma high density lipoprotein (HDL) cholesterol dzzlqaiogmh59-44 [facility] CenterComment on above:HDL CHOL ATP-III CLASSIFICATION Cardiovascular RiskHDL > or equal to 60 mg/dL LOWHDL < 40 mg/dL HIGHCholesterol in LDL Calc [Mass/Vol]Ordered By: Kirill Machuca on 02-05-2025 Cholesterol in LDL [Mass/Vol]Cholesterol in LDL [Mass/volume] in Serum or Plasma by calculationHigh0-100[facility] Medical CenterComment on above:LDL ATP III CLASSIFICATIONLDL less than 100 mg/dL OptimalLDL 100-129 mg/dL Near or above ngqufoyPLE713-687 mg/dL Borderline highLDL 160-189 mg/dL HighLDL greater than 189 mg/dL Very highCholesterol in VLDL Calc [Mass/Vol]Ordered By: Kirill Machuca on 98-50-6178Vpkimhxlbvb in VLDL [Mass/Vol]Cholesterol in VLDL [Mass/volume] in Serum or Plasma by calculationDayton Va Medical Center Creatinine [Mass/volume] in Serum or PlasmaOrdered By: Kirill Machuca on 02-05-2025 Creatinine [Mass/Vol]Creatinine [Mass/volume] in Serum or Plasma0.60-1.20 [facility] CenterEmployee Comp Metabolic Panelon 02-05-2025 Albumin [Mass/Vol]4.3 g/dLNormal3.5-5.7The [facility] Physician GroupComment on above:Performed By: #### PILLAR LIPID, PILLAR CBC, PILLAR CMP #### [facility] [address] [place] [address] USAAlbumin/Globulin [Mass ratio]1.9 {ratio}NormalThe [facility] Physician Laird HospitalComment on above:Performed By: #### PILLAR LIPID, PILLAR CBC, PILLAR CMP #### [facility] [address] [place] [address] USAALP [Catalytic activity/Vol]56 U/KKuxexk46-996Ljo [facility] Physician GroupComment on above:Performed By: #### PILLAR LIPID, PILLAR CBC, PILLAR CMP #### [facility] [address] [place] [address] USAALT [Catalytic activity/Vol]12 U/LNormal7-52The [facility] Physician GroupComment on above:Performed By: #### PILLAR LIPID, PILLAR CBC, PILLAR CMP #### [facility] [address] [place] [address] USAAnion gap [Moles/Vol]9.9 mmol/LNormal6.0-15.0The [facility] Physician GroupComment on above:Performed By: #### PILLAR LIPID, PILLAR CBC, PILLAR CMP #### [facility] [address] [place] [address] USAAST [Catalytic activity/Vol]12 U/HOpz84-49Gtn [facility] Physician GroupComment on above:Performed By: #### PILLAR LIPID, PILLAR CBC, PILLAR CMP #### [facility] [address] [place] [address] USABilirubin [Mass/Vol]0.4 mg/dLNormal0.3-1.0The [facility] Physician GroupComment on above:Performed By: #### PILLAR LIPID, PILLAR CBC, PILLAR CMP #### [place] [address] USACalcium [Mass/Vol]9.3 mg/dLNormal8.6-10.3The [facility] Physician GroupComment on above:Performed By: #### PILLAR LIPID, PILLAR CBC, PILLAR CMP #### [facility] [address] [place] [address] USAChloride [Moles/Vol]104 mmol/EVennct58-350Bqk [facility] Physician GroupComment on above:Performed By: #### PILLAR LIPID, PILLAR CBC, PILLAR CMP #### [facility] [address] [place] [address] USACO2 [Moles/Vol]28.9 mmol/AYotvub40.0-31.0The [facility] Physician GroupComment on above:Performed By: #### PILLAR LIPID, PILLAR CBC, PILLAR CMP #### [place] [address] USACreatinine [Mass/Vol]0.83 mg/dLNormal0.60-1.20The [facility] Physician GroupComment on above:Performed By: #### PILLAR LIPID, PILLAR CBC, PILLAR CMP #### [place] [address] USAGFR/1.73 sq M.predicted MDRD (S/P/Bld) [Vol rate/Area] mL/min/{1.73_m2}NormalThe [facility] Physician GroupComment on above:Performed By: #### PILLAR LIPID, PILLAR CBC, PILLAR CMP #### [place] [address] USAGlobulin (S) [Mass/Vol]2.3 g/dLNormalThe [facility] Physician GroupComment on above:Performed By: #### PILLAR LIPID, PILLAR CBC, PILLAR CMP #### [place] [address] USAGlucose [Mass/Vol]97 mg/aNOxrjbq62-923Hmz [facility] Physician GroupComment on above:Performed By: #### PILLAR LIPID, PILLAR CBC, PILLAR CMP #### [place] [address] USAPotassium [Moles/Vol]3.8 mmol/LNormal3.5-5.1The [facility] Physician GroupComment on above:Performed By: #### PILLAR LIPID, PILLAR CBC, PILLAR CMP #### [place] [address] USAProtein [Mass/Vol]6.6 g/dLNormal6.4-8.9The [facility] Physician GroupComment on above:Performed By: #### PILLAR LIPID, PILLAR CBC, PILLAR CMP #### [place] [address] USASodium [Moles/Vol]139 mmol/SWmxlwa194-945Pog [facility] Physician GroupComment on above:Performed By: #### PILLAR LIPID, PILLAR CBC, PILLAR CMP #### [place] [address] USAUrea nitrogen [Mass/Vol]18 mg/dLNormal7-25The [facility] Physician GroupComment on above:Performed By: #### PILLAR LIPID, PILLAR CBC, PILLAR CMP #### [place] [address] USAEmployee Complete Blood Counton 84-20-0873Zdfxcwchv (Bld) [#/Vol]0.0 10*3/uLNormal0.0-0.2The [facility] Physician GroupComment on above: Result Comment: PERFORMED BY: [place] [address] PATHOLOGIST DIVERSIFIED CROPS I FARMWORKER ALEX KNOTT M.D.Performed By: #### PILLAR LIPID, PILLAR CBC, PILLAR CMP #### [place] [address] USABasophils/100 WBC (Bld)0.9 %Normal.The [facility] Physician GroupComment on above:Performed By: #### PILLAR LIPID, PILLAR CBC, PILLAR CMP #### [place] [address] USAEosinophils (Bld) [#/Vol]0.1 10*3/uLNormal0.0-0.45The [facility] Physician GroupComment on above:Performed By: #### PILLAR LIPID, PILLAR CBC, PILLAR CMP #### [place] [address] USAEosinophils/100 WBC (Bld)2.3 %Normal.The [facility] Physician GroupComment on above:Performed By: #### PILLAR LIPID, PILLAR CBC, PILLAR CMP #### [place] [address] USAErythrocyte distribution width (RBC) [Ratio]13.4 %Normal 11.9-15.3The [facility] Physician GroupComment on above:Performed By: #### PILLAR LIPID, PILLAR CBC, PILLAR CMP #### [place] [address] USAHematocrit (Bld) [Volume fraction]37.7 %Fbxpfz90.0-46.4The [facility] Physician GroupComment on above:Performed By: #### PILLAR LIPID, PILLAR CBC, PILLAR CMP #### [place] [address] USAHemoglobin (Bld) [Mass/Vol]12.8 g/oPEgriyb04.8-15.4The [facility] Physician GroupComment on above:Performed By: #### PILLAR LIPID, PILLAR CBC, PILLAR CMP #### [place] [address] USALymphocytes (Bld) [#/Vol]0.8 10*3/uLLow1.00-4.8The [facility] Physician GroupComment on above:Performed By: #### PILLAR LIPID, PILLAR CBC, PILLAR CMP #### [place] [address] USALymphocytes/100 WBC (Bld)16.1 %Normal.The [facility] Physician GroupComment on above:Performed By: #### PILLAR LIPID, PILLAR CBC, PILLAR CMP #### [place] [address] USAMCH (RBC) [Entitic mass]31.0 guYsfbxo15.7-34.3The [facility] Physician GroupComment on above:Performed By: #### PILLAR LIPID, PILLAR CBC, PILLAR CMP #### [place] [address] USAMCV (RBC) [Entitic vol]91.1 fNNzvdcm53-135Bjn [facility] Physician GroupComment on above:Performed By: #### PILLAR LIPID, PILLAR CBC, PILLAR CMP #### [place] [address] USAMean Corpuscular HGB Conc34.1 g/tXHtrvqw48.0-35.0The [facility] Physician GroupComment on above:Performed By: #### PILLAR LIPID, PILLAR CBC, PILLAR CMP #### [facility] [address] [place] [address] USAMonocytes (Bld) [#/Vol]0.4 10*3/uLNormal0.0-0.8The [facility] Physician GroupComment on above:Performed By: #### PILLAR LIPID, PILLAR CBC, PILLAR CMP #### [facility] [address] [place] [phone] USAMonocytes/100 WBC (Bld)7.5 %Normal.The [facility] Physician GroupComment on above:Performed By: #### PILLAR LIPID, PILLAR CBC, PILLAR CMP #### [place] [address] USANeutrophils (Bld) [#/Vol]3.8 10*3/uLNormal1.8-7.7The [facility] Physician GroupComment on above:Performed By: #### PILLAR LIPID, PILLAR CBC, PILLAR CMP #### [place] [address] USANeutrophils/100 WBC (Bld)73.2 %Normal.The [facility] Physician GroupComment on above:Performed By: #### PILLAR LIPID, PILLAR CBC, PILLAR CMP #### [place] [address] USANRBC%0.1 /100{WBC}Normal0-0.5The [facility] Physician Group Comment on above:Performed By: #### PILLAR LIPID, PILLAR CBC, PILLAR CMP #### [facility] [address] [place] [phone] USAPlatelet mean volume (Bld) [Entitic vol]8.8 fLNormal 6.3-10.7The [facility] Physician GroupComment on above:Performed By: #### PILLAR LIPID, PILLAR CBC, PILLAR CMP #### [place] [address] USAPlatelets (Bld) [#/Vol]194 10*3/yJLufttn241-816Hwc [facility] Physician GroupComment on above:Performed By: #### PILLAR LIPID, PILLAR CBC, PILLAR CMP #### [facility] [address] [place] [address] USARBC (Bld) [#/Vol]4.13 10*6/uLNormal3.60-5.00The [facility] Physician GroupComment on above:Performed By: #### PILLAR LIPID, PILLAR CBC, PILLAR CMP #### [facility] [address] [place] [id number] USAWBC (Bld) [#/Vol]5.2 10*3/uLNormal3.8-11.6The [facility] Physician GroupComment on above:Performed By: #### PILLAR LIPID, PILLAR CBC, PILLAR CMP #### [address] [address] USAEmployee Lipid Profileon 59-47-8357Nculpnesheh [Mass/Vol] 201 mg/rXHawp566-702Lua [facility] Physician GroupComment on above:Result Comment: Chol less than 200 mg/dl low risk Chol 201-239 mg/dl borderline risk Chol 240 mg/dl and greater high riskPerformed By: #### PILLAR LIPID, PILLAR CBC, PILLAR CMP #### [place] [phone] USACholesterol in HDL [Mass/Vol]64 mg/iOUzeuqh26-46Skz [facility] Physician GroupComment on above:Result Comment: HDL CHOL ATP-III CLASSIFICATION Cardiovascular Risk HDL > or equal to 60 mg/dL LOW HDL < 40 mg/dL HIGHPerformed By: #### PILLAR LIPID, PILLAR CBC, PILLAR CMP #### [place] [address] USACholesterol.total/Cholesterol in HDL [Mass ratio]3.1 {ratio}Normal<5.0The [facility] GroupComment on above:Result Comment: PERFORMED BY: [place] [address] PATHOLOGIST DIVERSIFIED CROPS I FARMWORKER ALEX KNOTT M.D.Performed By: #### PILLAR LIPID, PILLAR CBC, PILLAR CMP #### [facility] [address] [place] [address] USALDL Cholesterol,Vehadiroia394 mg/dLHigh0-100The [facility] Physician GroupComment on above:Result Comment: LDL ATP III CLASSIFICATION LDL less than 100 mg/dL Optimal LDL 100-129 mg/dL Near or above optimal LDL 130-159 mg/dL Borderline high LDL 160-189 mg/dL High LDL greater than 189 mg/dL Very highPerformed By: #### PILLAR LIPID, PILLAR CBC, PILLAR CMP #### [facility] [address] [place] [address] USATriglyceride w/Klsbzq47 mg/dLNormal0-149The [facility] Physician GroupComment on above:Result Comment: TRIG ATP III CLASSIFICATION TRIG less than 150 mg/dL Normal TRIG 150-199 mg/dL Borderline high TRIG 200-500 mg/dL High TRIG greater than 500 mg/dL Very high Standard traceable to the Center for Disease Conrtrol and Prevention (CDC) test method.Performed By: #### PILLAR LIPID, PILLAR CBC, PILLAR CMP #### [facility] [address] [place] [address] USAVLDL ONIUDVJRFAU46 mg/dLNormalThe [facility] Physician GroupComment on above:Performed By: #### PILLAR LIPID, PILLAR CBC, PILLAR CMP #### [facility] [address] [place] [phone] USAEosinophils Auto (Bld) [#/Vol]Ordered By: Kirill Machuca on 26-15-4344Bfzvzxsksyc (Bld) [#/Vol]Automated eosinophil count0.0-0.45[facility] CenterEosinophils/100 WBC Auto (Bld)Ordered By: Kirill Machuca on 68-06-8860Ncctievcdrz/100 WBC (Bld)Automated eosinophil %.[facility] CenterErythrocyte distribution width Auto (RBC) [Ratio]Ordered By: Kirill Machuca on 95-90-0407Nryypommxmu distribution width (RBC) [Ratio]Erythrocyte distribution width [Ratio] by Automated count11.9-15.3FThe Jewish HospitalGlobulin Calc (S) [Mass/Vol]Ordered By: Kirill Machuca on 25-16-5492Faklzeji (S) [Mass/Vol]Serum globulin measurement by calculation (mass/volume)[facility] CenterGlucose [Mass/volume] in Serum or PlasmaOrdered By: Kirill Machuca on 25-33-7641Ezvjldc [Mass/Vol]Glucose [Mass/volume] in Serum or Plasma 70-100[facility] Medical CenterHematocrit Auto (Bld) [Volume fraction] Ordered By: Kirill Machuca on 62-84-9749Yytclihmgh (Bld) [Volume fraction]Hematocrit [Volume Fraction] of Blood by Automated count34.0-46.4FThe Jewish HospitalHemoglobin [Mass/volume] in BloodOrdered By: Kirill Machuca on 02-05-2025 Hemoglobin (Bld) [Mass/Vol]Hemoglobin [Mass/volume] in Blood11.8-15.4FThe Jewish HospitalLeukocytes [#/volume] corrected for nucleated erythrocytes in Blood by Automated counOrdered By: Kirill Machuca on 79-03-8550YBO corrected for nucl RBC Auto (Bld) [#/Vol]Leukocytes [#/volume] corrected for nucleated erythrocytes in Blood by Automated coun3.8-11.6FThe Jewish HospitalLymphocytes Auto (Bld) [#/Vol]Ordered By: Kirill Machuca on 02-05-2025 Lymphocytes (Bld) [#/Vol]Lymphocytes [#/volume] in Blood by Automated countLow 1.00-4.8[facility] Medical CenterLymphocytes/100 WBC Auto (Bld)Ordered By: Kirill Machuca on 50-47-1320Lnymkyuddqx/100 WBC (Bld)Lymphocytes/100 leukocytes in Blood by Automated count.[facility] Medical CenterMCH Auto (RBC) [Entitic mass]Ordered By: Kirill Machuca on 31-41-6938DLW (RBC) [Entitic mass]MCH [Entitic mass] by Automated count24.7-34.3FThe Jewish HospitalMCHC Auto (RBC) [Mass/Vol]Ordered By: Kirill Machuca on 92-93-7925CHXT (RBC) [Mass/Vol] MCHC [Mass/volume] by Automated count32.0-35.0[facility] MCV Auto (RBC) [Entitic vol]Ordered By: Kirill Machuca on 68-66-1882JJK (RBC) [Entitic vol]MCV [Entitic volume] by Automated lmfac22-354BxchyuitlDayton Va Medical CenterMonocytes Auto (Bld) [#/Vol]Ordered By: Kirill Machuca on 02-05-2025 Monocytes (Bld) [#/Vol]Automated blood monocyte count0.0-0.8[facility] CenterMonocytes/100 WBC Auto (Bld)Ordered By: Kirill Machuca on 02-05-2025 Monocytes/100 WBC (Bld)Automated monocyte %.[facility] Neutrophils Auto (Bld) [#/Vol]Ordered By: Kirill Machuca on 73-34-0115Rqdrgfhdriz (Bld) [#/Vol]Neutrophils [#/volume] in Blood by Automated count1.8-7.7FThe Jewish HospitalNeutrophils/100 WBC Auto (Bld)Ordered By: Kirill Machuca on 26-10-1864Uxsoufuiubl/100 WBC (Bld)Automated neutrophil %.[facility] CenterNo Panel InformationOrdered By: Kirill Machuca on 40-21-2806Uieolevgw GFR (CKD-EPI)> 60.0 mL/MinDayton Va Medical CenterPharmacy Creatinine Clearance (ChemN/AFThe Jewish HospitalNucleated erythrocytes [Presence] in Blood by Automated countOrdered By: Kirill Machuca on 02-05-2025 Nucleated RBC Auto Ql (Bld)Nucleated erythrocytes [Presence] in Blood by Automated count0-0.5FThe Jewish HospitalPlatelet mean volume Auto (Bld) [Entitic vol]Ordered By: Kirill Machuca on 16-15-3652Klcfrisp mean volume (Bld) [Entitic vol]Platelet mean volume [Entitic volume] in Blood by Automated count6.3-10.7FThe Jewish HospitalPlatelets Auto (Bld) [#/Vol] Ordered By: Kirill Machuca on 39-13-1705Drelljdzp (Bld) [#/Vol]Platelets [#/volume] in Blood by Automated iqjyz607-068AtewxfcgoDayton Va Medical CenterPotassium [Moles/volume] in Serum or PlasmaOrdered By: Kirill Machuca on 39-02-2300Efmwnbxqs [Moles/Vol]Potassium [Moles/volume] in Serum or Plasma3.5-5.1FThe Jewish HospitalProtein [Mass/volume] in Serum or PlasmaOrdered By: Kirill Machuca on 95-83-3348Vyzyzia [Mass/Vol]Protein [Mass/volume] in Serum or Plasma6.4-8.9 [facility] CenterRBC Auto (Bld) [#/Vol]Ordered By: Kirill Machuca on 52-43-8924VWC (Bld) [#/Vol]Erythrocytes [#/volume] in Blood by Automated count 3.60-5.00Pomerene Hospitalerum or plasma albumin/globulin mass ratioOrdered By: Kirill Machuca on 25-29-5673Ebeowdr/Globulin [Mass ratio]Serum or plasma albumin/globulin mass ratioPomerene Hospitalerum or plasma anion gap determinationOrdered By: Kirill Machuca on 21-99-9828Febcn gap [Moles/Vol]Serum or plasma anion gap determination6.0-15.0[facility] Hospitalerum or plasma total cholesterol/high density lipoprotein (HDL) cholesterol mass ratOrdered By: Kirill Machuca on 02-05-2025 Cholesterol.total/Cholesterol in HDL [Mass ratio]Serum or plasma total cholesterol/high density lipoprotein (HDL) cholesterol mass rat<5.0P[facility]rene Hospitalodium [Moles/volume] in Serum or PlasmaOrdered By: Kirill Machuca on 87-34-2364Onjwoi [Moles/Vol]Sodium [Moles/volume] in Serum or Plasma 136-145Day[facility] Medical CenterTriglyceride [Mass/volume] in Serum or PlasmaOrdered By: Kirill Machuca on 63-25-4679Wmjsquvuosmu [Mass/Vol]Triglyceride [Mass/volume] in Serum or Plasma0-149[facility] CenterComment on above:TRIG ATP III CLASSIFICATIONTRIG less than 150 mg/dL NormalTRIG 150-199 mg/dL Borderline highTRIG 200-500 mg/dL High TRIG greater than 500 mg/dL Very highStandard traceable to the Center for Disease Conrtrol and Prevention (CDC) test method.Urea nitrogen [Mass/volume] in Serum or PlasmaOrdered By: Kirill Machuca on 15-34-1504Axyk nitrogen [Mass/Vol]Urea nitrogen [Mass/volume] in Serum or Plasma04-23Day[facility] Medical CenterWBC Auto (Bld) [#/Vol]Ordered By: Kirill Machuca on 52-42-8004UYH (Bld) [#/Vol]Leukocytes [#/volume] in Blood by Automated count3.8-11.6FThe Jewish HospitalMM screening mammo BI w/CADon 78-65-9976SB [facility] [address] [place] [address] Mammography Report Signed Patient: Clarita Aguilera MR#: [id number] 70 : 1970 Acct:[id number] Age/Sex: 53 / F ADM Date: 08/03/24 Loc: IN Room: Type: [facility] Attending Dr: Leora Zamudio DO Copies to: DO Leora Hernadez DO Ordering Provider: Leora Zamudio DO Date of Service: 08/03/24 MM/MM screening mammo BI w/CAD: screening CLINICAL DATA: Screening for malignancy. SCREENING MAMMOGRAM - FULL FIELD DIGITAL WITH TOMOSYNTHESIS AND CAD COMPARISON:Mammograms dating back to 2020 Tomosynthesis craniocaudal and mediolateral oblique views of both breasts were obtained using low- dose digital technique. This examination was reviewed with the aid of CAD. FINDINGS: The breast tissue is composed of scattered [...] mammogram. Impression dictated by: Tye Morrissey Jr., DArabella08/03/2024 3:37 PM Dictation Location: [facility] Transcribed By: [facility] 08/03/24 1537 Dictated By: Tye Morrissey Jr, DO 08/03/24 1536 Signed By: 08/03/24 1537[facility] Physician GroupHPV 16+18+31+33+35+39+45+51+52+56+58+59+68 DNA cervix probe + signal amplificOrdered By: Leora Zamudio on 80-18-1171OGC 16+18+31+33+35+39+45+51+52+56+58+59+68 DNA Probe+sig amp Ql (Cvx)NegativeNegativeDayton Va Medical CenterComment on above:This nucleic acid amplification test detects fourteen high-risk HPV types (16,18,31,33,35,39,45,51,52,56,58,59,66,68)without differentiation.Performed at: - Lab[address] [place]meen [place]CHER [place], [place] [id number] Director: Senait De La Cruz MD, Phone: [phone] at: =[facility] [id number] Director: Senait De La Cruz MD, Phone: [phone] Panel InformationOrdered By: Leora Zamudio on 23-93-5535Orbr Prep Pap InterpretationNoteAbnormal.[facility] Va Medical CenterComment on above:TESTS RESULT FLAG UNITS REF RANGE LAB Clinician Provided Cytology Information No. of containers..01 ThinPrep VialDIAGNOSIS: [A] 01 EPITHELIAL CELL ABNORMALITY. ATYPICAL SQUAMOUS CELLS OF UNDETERMINED SIGNIFICANCE (ASC-US). CELLULAR CHANGESASSOCIATED WITH ATROPHY ARE PRESENT.Recommendation: [A] 01 Suggest follow up as clinically appropria te.Specimen adequacy: 01 Satisfactory for evaluation. Endocervical and/or squamous metaplastic cells (endocervical component) are present.Performed by: Bull Condon, Oncology Rep (ASCP)Electronically si... Verona Hannah MD, Pathologist. 01Pathologist ICD10: R87.610Note: Note 01 The Pap smear is a screening test designed to aid in the detection of premalignant and malignant conditions of the uterine cervix. It is not a diagnostic procedure and should not be used as the sole means of detecting cervical cancer. Both false- positive and false-negative reports do occur.Test Methodology: Note 01 This liquid based ThinPrep(R) pap test was screened with the use of an image guided system.. 01 See below for HPV testing results. FLAG LEGEND: L-Low Normal,H-High Normal,LL-Alert Low,HH-Alert High <-Panic Low,>-PanicHigh,A-Abnormal,AA-Critical Abnormal Performed at: [facility] [id number] Senait De La Cruz MD, Bhcsmmyjm Auto (Bld) [#/Vol]Ordered By: Kirill Machuca on 74-35-5543Jclwxvzpb (Bld) [#/Vol]0.0 10*3/uL0.0-0.2FThe Jewish HospitalBasophils/100 WBC Auto (Bld)Ordered By: Kirill Machuca on 05-05-2024 Basophils/100 WBC (Bld)1.1 %.[facility] Medical CenterCalcium [Mass/volume] in Serum or PlasmaOrdered By: Kirill Machuca on 72-95-9250Ehqmevy [Mass/Vol]8.9 mg/dL8.6-10.3FThe Jewish HospitalCarbon dioxide, total [Moles/volume] in Serum or PlasmaOrdered By: Kirill Machuca on 24-39-3441MP7 [Moles/Vol]29.3 mmol/L21.0-31.0[facility] Medical CenterChloride [Moles/volume] in Serum or PlasmaOrdered By: Kirill Machuca on 20-29-6655Zlrkcxfx [Moles/Vol]107 mmol/Z50-366OqrqevhyeDayton Va Medical CenterCholesterol [Mass/volume] in Serum or PlasmaOrdered By: Kirill Machuca on 52-99-3711Iwcsyekrfrx [Mass/Vol]197 mg/jR292-959KhcihkpvcDayton Va Medical CenterComment on above:Chol less than 200 mg/dl low riskChol 201-239 mg/dl borderline riskChol 240 mg/dl and greater high riskCholesterol in LDL Calc [Mass/Vol]Ordered By: Kirill Machuca on 77-92-3852Oqwvcmyubxm in LDL [Mass/Vol]107 mg/dLHigh0-100Day[facility] CenterComment on above:LDL ATP III CLASSIFICATIONLDL less than 100 mg/dL OptimalLDL 100-129 mg/dL Near or above fqkbgfvGCZ764-245 mg/dL Borderline highLDL 160-189 mg/dL HighLDL greater than 189 mg/dL Very highCholesterol in VLDL Calc [Mass/Vol]Ordered By: Kirill Machuca on 08-26-3431Ndooqbytyeo in VLDL [Mass/Vol]22 mg/dLDayton Va Medical CenterCreatinine [Mass/volume] in Serum or PlasmaOrdered By: Kirill Machuca on 89-86-8835Cxjbqbspgv [Mass/Vol]0.81 mg/dL0.60-1.20Day[facility] Medical CenterEosinophils Auto (Bld) [#/Vol] Ordered By: Kirill Machuca on 49-10-4403Fjgtlmdmtbj (Bld) [#/Vol]0.1 10*3/uL0.0-0.45 [facility] CenterEosinophils/100 WBC Auto (Bld)Ordered By: Kirill Machuca on 82-68-5675Xthslezcags/100 WBC (Bld)2.3 %.[facility] CenterErythrocyte distribution width Auto (RBC) [Ratio]Ordered By: Kirill Machuca on 81-49-4530Xkbsqgybxli distribution width (RBC) [Ratio]13.6 %11.9-15.3FThe Jewish HospitalGlucose [Mass/volume] in Serum or PlasmaOrdered By: Kirill Machuca on 08-27-5080Piqlevl [Mass/Vol]91 mg/nT37-195NkpqpmlziDayton Va Medical CenterHematocrit Auto (Bld) [Volume fraction]Ordered By: Kirill Machuca on 06-37-1626Mrrmlmwshf (Bld) [Volume fraction]38.5 %34.0-46.4FThe Jewish HospitalHemoglobin [Mass/volume] in BloodOrdered By: Kirill Machuca on 17-91-4748Wsctsehtbx (Bld) [Mass/Vol]12.7 g/dL11.8-15.4FThe Jewish HospitalLeukocytes [#/volume] corrected for nucleated erythrocytes in Blood by Automated counOrdered By: Kirill Machuca on 92-07-7770KXM corrected for nucl RBC Auto (Bld) [#/Vol]4.3 10*3/uL3.8-11.6FThe Jewish Hospital Lymphocytes Auto (Bld) [#/Vol]Ordered By: Kirill Machuca on 88-25-4081Nqgevufahgj (Bld) [#/Vol]0.6 10*3/uLLow1.00-4.8[facility] Lymphocytes/100 WBC Auto (Bld)Ordered By: Kirill Machuca on 05-05-2024 Lymphocytes/100 WBC (Bld)15.0 %.[facility] HospitalH Auto (RBC) [Entitic mass]Ordered By: Kirill Machuca on 15-27-7942HBF (RBC) [Entitic mass]30.7 pg24.7-34.3FThe Jewish HospitalMCHC Auto (RBC) [Mass/Vol]Ordered By: Kirill Machuca on 07-45-9566RAGR (RBC) [Mass/Vol]33.0 g/dL32.0-35.0[facility] CenterMCV Auto (RBC) [Entitic vol]Ordered By: Kirill Machuca on 75-43-5882QHV (RBC) [Entitic vol]92.8 kO22-826HjnoxkskcDayton Va Medical Center Monocytes Auto (Bld) [#/Vol]Ordered By: Kirill Machuca on 71-68-0636Kizqiulkh (Bld) [#/Vol]0.3 10*3/uL0.0-0.8[facility] CenterMonocytes/100 WBC Auto (Bld)Ordered By: Kirill Machuca on 95-64-7441Fqiewzite/100 WBC (Bld)7.2 %.[facility] Medical CenterNeutrophils Auto (Bld) [#/Vol]Ordered By: Kirill Machuca on 97-30-7115Lfmxbxjsdzl (Bld) [#/Vol]3.2 10*3/uL1.8-7.7FThe Jewish HospitalNeutrophils/100 WBC Auto (Bld)Ordered By: Kirill Machuca on 05-05-2024 Neutrophils/100 WBC (Bld)74.4 %.[facility] CenterNo Panel InformationOrdered By: Kirill Machuca on 19-65-3767Cylbppitf GFR (CKD-EPI)> 60.0 mL/MinDayton Va Medical CenterPharmacy Creatinine Clearance (ChemN/A [facility] CenterNucleated erythrocytes [Presence] in Blood by Automated countOrdered By: Kirill Machuca on 67-52-2909Emzpuvlza RBC Auto Ql (Bld) 0.1 /100{WBC}0-0.5FThe Jewish HospitalPlatelet mean volume Auto (Bld) [Entitic vol]Ordered By: Kirill Machuca on 47-03-9946Phgopofz mean volume (Bld) [Entitic vol]9.0 fL6.3-10.7FThe Jewish HospitalPlatelets Auto (Bld) [#/Vol]Ordered By: Kirill Machuca on 41-91-5922Hiywkwoxf (Bld) [#/Vol]194 10*3/tI708-664ZailuzewdDayton Va Medical CenterPotassium [Moles/volume] in Serum or PlasmaOrdered By: Kirill Machuca on 37-23-7459Eeridwxyk [Moles/Vol]4.0 mmol/L 3.5-5.1FThe Jewish HospitalRBC Auto (Bld) [#/Vol]Ordered By: Kirill Machuca on 97-49-5309HLC (Bld) [#/Vol]4.14 10*6/uL3.60-5.00[facility] Hospitalerum or plasma anion gap determinationOrdered By: Kirill Machuca on 04-60-1089Lwblp gap [Moles/Vol]8.7 mmol/L6.0-15.0P[facility] Hospitalerum or plasma high density lipoprotein (HDL) cholesterol measurement Ordered By: Kirill Machuca on 98-04-0421Hrxlumqqofo in HDL [Mass/Vol]68 mg/dL23-92 [facility] CenterComment on above:HDL CHOL ATP-III CLASSIFICATION Cardiovascular RiskHDL > or equal to 60 mg/dL LOWHDL < 40 mg/dL HIGHSerum or plasma total cholesterol/high density lipoprotein (HDL) cholesterol mass ratOrdered By: Kirill Machuca on 15-84-9891Eugtbbvgtbl.total/Cholesterol in HDL [Mass ratio]2.9 {ratio}<5.0[facility] Hospitalodium [Moles/volume] in Serum or PlasmaOrdered By: Kirill Machuca on 95-17-3182Ntfpjp [Moles/Vol]141 mmol/D692-073CnmvjjctzDayton Va Medical CenterThyrotropin [Units/volume] in Serum or PlasmaOrdered By: Kirill Machuca on 20-71-2554UUN Qn1.29 m[IU]/L0.45-5.33[facility] Medical CenterTriglyceride [Mass/volume] in Serum or PlasmaOrdered By: Kirill Machuca on 31-59-1961Ukomuoxonhwa [Mass/Vol]110 mg/dL0-149[facility] CenterComment on above:TRIG ATP III CLASSIFICATIONTRIG less than 150 mg/dL NormalTRIG 150-199 mg/dL Borderline highTRIG 200-500 mg/dL High TRIG greater than 500 mg/dL Very highStandard traceable to the Center for Disease Conrtrol and Prevention (CDC) test method. Urea nitrogen [Mass/volume] in Serum or PlasmaOrdered By: Kirill Machuca on 63-88-2878Jmat nitrogen [Mass/Vol]18 mg/dL7-25[facility] WBC Auto (Bld) [#/Vol]Ordered By: Kirill Machuca on 87-77-6570RHT (Bld) [#/Vol]4.3 10*3/uL3.8-11.6FThe Jewish HospitalAlanine aminotransferase [Enzymatic activity/volume] in Serum or PlasmaOrdered By: PROVIDER TEMP on 48-02-7378NKJ [Catalytic activity/Vol]14 U/L7-52[facility] CenterAlbumin [Mass/volume] in Serum or Plasma by Bromocresol green (BCG) dye binding methoOrdered By: PROVIDER TEMP on 00-07-2507Rhdpyzo BCG dye [Mass/Vol] 5.0 g/dL3.5-5.7FThe Jewish HospitalAlkaline phosphatase [Enzymatic activity/volume] in Serum or PlasmaOrdered By: PROVIDER TEMP on 43-81-2013DJZ [Catalytic activity/Vol]72 U/X26-303QvedavascDayton Va Medical CenterAspartate aminotransferase [Enzymatic activity/volume] in Serum or PlasmaOrdered By: PROVIDER TEMP on 08-03-6417AQD [Catalytic activity/Vol]16 U/F44-44YugfvuzszDayton Va Medical CenterBasophils Auto (Bld) [#/Vol]Ordered By: PROVIDER TEMP on 27-71-7444Ssldtubjw (Bld) [#/Vol]0.0 10*3/uL0.0-0.2FThe Jewish HospitalBasophils/100 WBC Auto (Bld)Ordered By: PROVIDER TEMP on 09-18-2023 Basophils/100 WBC (Bld)0.5 %.[facility] Medical CenterBilirubin.total [Mass/volume] in Serum or PlasmaOrdered By: PROVIDER TEMP on 69-96-6320Yggtwwbon [Mass/Vol]0.6 mg/dL0.3-1.0[facility] CenterCalcium [Mass/volume] in Serum or PlasmaOrdered By: PROVIDER TEMP on 39-37-5716Hliynmw [Mass/Vol]10.2 mg/dL8.6-10.3FThe Jewish HospitalCarbon dioxide, total [Moles/volume] in Serum or PlasmaOrdered By: PROVIDER TEMP on 09-18-2023 CO2 [Moles/Vol]24.0 mmol/L21.0-31.0[facility] CenterChloride [Moles/volume] in Serum or PlasmaOrdered By: PROVIDER TEMP on 50-31-9565Kujzfidk [Moles/Vol]102 mmol/N14-328NzhbhuhmnDayton Va Medical CenterCreatinine [Mass/volume] in Serum or PlasmaOrdered By: PROVIDER TEMP on 09-18-2023 Creatinine [Mass/Vol]0.77 mg/dL0.60-1.20[facility] Eosinophils Auto (Bld) [#/Vol]Ordered By: PROVIDER TEMP on 76-87-8405Sgwhmytgtww (Bld) [#/Vol]0.0 10*3/uL0.0-0.45[facility] Eosinophils/100 WBC Auto (Bld)Ordered By: PROVIDER TEMP on 09-18-2023 Eosinophils/100 WBC (Bld)0.3 %.[facility] Medical CenterErythrocyte distribution width Auto (RBC) [Ratio]Ordered By: PROVIDER TEMP on 09-18-2023 Erythrocyte distribution width (RBC) [Ratio]13.2 %11.9-15.3FThe Jewish HospitalGlobulin Calc (S) [Mass/Vol]Ordered By: PROVIDER TEMP on 82-39-4221Kxnlpfuo (S) [Mass/Vol]2.9 g/dLDayton Va Medical Center Glucose [Mass/volume] in Serum or PlasmaOrdered By: PROVIDER TEMP on 09-18-2023 Glucose [Mass/Vol]106 mg/hL80-071HhpixlbwcDayton Va Medical CenterComment on above:ADA recommended reference rangeRandom Glucose Reference Range is dependent on time and content of last meal. Glucose of more than 200 mg/dL in a nonstressed, ambulatory subject supports the diagnosisof Diabetes Mellitus. Hematocrit Auto (Bld) [Volume fraction]Ordered By: PROVIDER TEMP on 09-18-2023 Hematocrit (Bld) [Volume fraction]40.4 %34.0-46.4FThe Jewish HospitalHemoglobin [Mass/volume] in BloodOrdered By: PROVIDER TEMP on 09-18-2023 Hemoglobin (Bld) [Mass/Vol]13.9 g/dL11.8-15.4FThe Jewish Hospital Leukocytes [#/volume] corrected for nucleated erythrocytes in Blood by Automated counOrdered By: PROVIDER TEMP on 30-65-3231KMP corrected for nucl RBC Auto (Bld) [#/Vol]6.9 10*3/uL3.8-11.6FThe Jewish HospitalLipase [Enzymatic activity/volume] in Serum or PlasmaOrdered By: PROVIDER TEMP on 15-90-4026Pbqpba [Catalytic activity/Vol]32.0 U/L11.0-82.0[facility] Medical CenterLymphocytes Auto (Bld) [#/Vol]Ordered By: PROVIDER TEMP on 54-87-2733Kjcfuzlntue (Bld) [#/Vol]0.2 10*3/uL1.00-4.8[facility] CenterLymphocytes/100 WBC Auto (Bld)Ordered By: PROVIDER TEMP on 09-18-2023 Lymphocytes/100 WBC (Bld)3.4 %.[facility] Medical CenterMCH Auto (RBC) [Entitic mass]Ordered By: PROVIDER TEMP on 14-91-1608WMH (RBC) [Entitic mass] 31.3 pg24.7-34.3FThe Jewish HospitalMCHC Auto (RBC) [Mass/Vol] Ordered By: PROVIDER TEMP on 12-54-4927ZDNF (RBC) [Mass/Vol]34.3 g/dL32.0-35.0 [facility] CenterMCV Auto (RBC) [Entitic vol]Ordered By: PROVIDER TEMP on 01-86-9594DME (RBC) [Entitic vol]91.0 rN93-658VnsedlahnDayton Va Medical CenterMonocyte distribution width [Entitic volume] in Blood by AutomatedOrdered By: PROVIDER TEMP on 52-63-2750Esqkycgk distribution width Auto (Bld) [Entitic vol]23.55 %0.00-20.00[facility] CenterComment on above:For adults in ED, MDW > 20.0 may be associated with a higher risk of sepsis during the first 12 hrs of hospital admissionMonocytes Auto (Bld) [#/Vol] Ordered By: PROVIDER TEMP on 94-21-0264Ropgjoeba (Bld) [#/Vol]0.3 10*3/uL0.0-0.8 [facility] CenterMonocytes/100 WBC Auto (Bld)Ordered By: PROVIDER TEMP on 85-14-3946Uxjnztlyu/100 WBC (Bld)4.7 %.[facility] Medical CenterNeutrophils Auto (Bld) [#/Vol]Ordered By: PROVIDER TEMP on 85-71-3855Eykhvcnazfg (Bld) [#/Vol]6.3 10*3/uL1.8-7.7FThe Jewish HospitalNeutrophils/100 WBC Auto (Bld)Ordered By: PROVIDER TEMP on 09-18-2023 Neutrophils/100 WBC (Bld)91.1 %.[facility] CenterNo Panel InformationOrdered By: PROVIDER TEMP on 59-53-0647Jfbrresli GFR (CKD-EPI)> 60.0 mL/MinDayton Va Medical CenterPharmacy Creatinine Clearance (Chem69.90 [facility] CenterNucleated erythrocytes [Presence] in Blood by Automated countOrdered By: PROVIDER TEMP on 38-37-8833Xxynkewrq RBC Auto Ql (Bld)0.1 /100{WBC}0-0.5FThe Jewish HospitalPlatelet mean volume Auto (Bld) [Entitic vol]Ordered By: PROVIDER TEMP on 02-31-1767Ngomoljb mean volume (Bld) [Entitic vol]8.7 fL6.3-10.7FThe Jewish Hospital Platelets Auto (Bld) [#/Vol]Ordered By: PROVIDER TEMP on 21-00-6458Krypjfwhb (Bld) [#/Vol]197 10*3/xX340-208QmjpjkcziDayton Va Medical CenterPotassium [Moles/volume] in Serum or PlasmaOrdered By: PROVIDER TEMP on 09-18-2023 Potassium [Moles/Vol]3.9 mmol/L3.5-5.1FThe Jewish HospitalProtein [Mass/volume] in Serum or PlasmaOrdered By: PROVIDER TEMP on 63-26-0924Jukyndt [Mass/Vol]7.9 g/dL6.4-8.9[facility] CenterRBC Auto (Bld) [#/Vol] Ordered By: PROVIDER TEMP on 94-17-0396MRL (Bld) [#/Vol]4.44 10*6/uL3.60-5.00 [facility] Hospitalerum or plasma albumin/globulin mass ratio Ordered By: PROVIDER TEMP on 64-69-4741Sclnpfo/Globulin [Mass ratio]1.7 {ratio} [facility] Hospitalerum or plasma anion gap determinationOrdered By: PROVIDER TEMP on 33-28-8800Fpwum gap [Moles/Vol]13.9 mmol/L6.0-15.0[facility] Hospitalodium [Moles/volume] in Serum or PlasmaOrdered By: PROVIDER TEMP on 69-80-4506Crahis [Moles/Vol]136 mmol/K257-507DcrwlxsuwDayton Va Medical CenterUrea nitrogen [Mass/volume] in Serum or PlasmaOrdered By: PROVIDER TEMP on 72-46-2896Qaks nitrogen [Mass/Vol]14 mg/dL7-25[facility] CenterWBC Auto (Bld) [#/Vol]Ordered By: PROVIDER TEMP on 06-11-7065ONO (Bld) [#/Vol]6.9 10*3/uL3.8-11.6FThe Jewish Hospital Alanine aminotransferase [Enzymatic activity/volume] in Serum or PlasmaOrdered By: Kirill Machuca on 43-17-0865OTJ [Catalytic activity/Vol]8 U/L7-52[facility] CenterAlbumin [Mass/volume] in Serum or Plasma by Bromocresol green (BCG) dye binding methoOrdered By: Kirill Machuca on 85-52-1539Lxxafkz BCG dye [Mass/Vol]4.5 g/dL3.5-5.7FThe Jewish HospitalAlkaline phosphatase [Enzymatic activity/volume] in Serum or PlasmaOrdered By: Kirill Machuca on 58-42-3807HUR [Catalytic activity/Vol]56 U/V22-052MiyfcwghzDayton Va Medical CenterAspartate aminotransferase [Enzymatic activity/volume] in Serum or Plasma Ordered By: Kirill Machuca on 66-07-6781OYW [Catalytic activity/Vol]10 U/L13-39 [facility] CenterBasophils Auto (Bld) [#/Vol]Ordered By: Kirill Machuca on 48-12-6492Lcuaqmgbf (Bld) [#/Vol]0.0 10*3/uL0.0-0.2FThe Jewish HospitalBasophils/100 WBC Auto (Bld)Ordered By: Kirill Machuca on 06-27-2023 Basophils/100 WBC (Bld)1.0 %.[facility] CenterBilirubin.total [Mass/volume] in Serum or PlasmaOrdered By: Kirill Machuca on 47-68-0023Btahbpltc [Mass/Vol]0.4 mg/dL0.3-1.0[facility] CenterCalcium [Mass/volume] in Serum or PlasmaOrdered By: Kirill Machuca on 89-53-8366Pagviin [Mass/Vol]9.3 mg/dL8.6-10.3FThe Jewish HospitalCarbon dioxide, total [Moles/volume] in Serum or PlasmaOrdered By: Kirill Machuca on 85-67-5966OY7 [Moles/Vol]30.0 mmol/L21.0-31.0[facility] CenterChloride [Moles/volume] in Serum or PlasmaOrdered By: Kirill Machuca on 48-21-7419Fngmetbw [Moles/Vol]107 mmol/E98-217DuwjevremDayton Va Medical CenterCholesterol [Mass/volume] in Serum or PlasmaOrdered By: Kirill Machuca on 31-71-8930Eogjavybiiy [Mass/Vol]201 mg/wH989-355DwkuhuevvDayton Va Medical CenterComment on above:Chol less than 200 mg/dl low riskChol 201-239 mg/dl borderline riskChol 240 mg/dl and greater high riskCholesterol in LDL Calc [Mass/Vol]Ordered By: Kirill Machuca on 43-35-3544Pumzkkvvrzo in LDL [Mass/Vol]116 mg/dL0-100[facility] CenterComment on above:LDL ATP III CLASSIFICATIONLDL less than 100 mg/dL OptimalLDL 100-129 mg/dL Near or above exbwobaSVU101-634 mg/dL Borderline highLDL 160-189 mg/dL HighLDL greater than 189 mg/dL Very highCholesterol in VLDL Calc [Mass/Vol]Ordered By: Kirill Machuca on 76-63-1247Elnsstfrchz in VLDL [Mass/Vol]14 mg/dLDayton Va Medical CenterCreatinine [Mass/volume] in Serum or PlasmaOrdered By: Kirill Machuca on 85-91-8640Hceakwkpsl [Mass/Vol]0.84 mg/dL0.60-1.20[facility] CenterEosinophils Auto (Bld) [#/Vol] Ordered By: Kirill Machuca on 52-54-5194Flmcebvvspg (Bld) [#/Vol]0.1 10*3/uL0.0-0.45 [facility] CenterEosinophils/100 WBC Auto (Bld)Ordered By: Kirill Machuca on 22-15-5713Fvegxbfxgac/100 WBC (Bld)2.6 %.[facility] CenterErythrocyte distribution width Auto (RBC) [Ratio]Ordered By: Kirill Machuca on 21-98-7402Vanabmnekes distribution width (RBC) [Ratio]13.3 %11.9-15.3FThe Jewish HospitalGlobulin Calc (S) [Mass/Vol]Ordered By: Kirill Machuca on 93-85-5250Bydzxmcf (S) [Mass/Vol]1.9 g/dLDayton Va Medical Center Glucose [Mass/volume] in Serum or PlasmaOrdered By: Kirill Machuca on 06-27-2023 Glucose [Mass/Vol]85 mg/pI36-907AsjxrobpuDayton Va Medical CenterHematocrit Auto (Bld) [Volume fraction]Ordered By: Kirill Machuca on 46-77-0852Ojgfxqqruw (Bld) [Volume fraction]39.2 %34.0-46.4FThe Jewish HospitalHemoglobin [Mass/volume] in BloodOrdered By: Kirill Machuca on 14-24-6575Fgtrignjqe (Bld) [Mass/Vol]13.2 g/dL11.8-15.4FThe Jewish HospitalLeukocytes [#/volume] corrected for nucleated erythrocytes in Blood by Automated coun Ordered By: Kirill Machuca on 46-20-1162TUY corrected for nucl RBC Auto (Bld) [#/Vol]5.0 10*3/uL3.8-11.6FThe Jewish HospitalLymphocytes Auto (Bld) [#/Vol]Ordered By: Kirill Machuca on 11-03-0260Dfpkuttxgeb (Bld) [#/Vol]0.7 10*3/uL1.00-4.8Day[facility] Medical CenterLymphocytes/100 WBC Auto (Bld) Ordered By: Kirill Machuca on 23-52-2261Qufrrdiipzk/100 WBC (Bld)14.6 %.[facility] HospitalH Auto (RBC) [Entitic mass]Ordered By: Kirill Machuca on 32-54-9584OWN (RBC) [Entitic mass]31.2 pg24.7-34.3FThe Jewish HospitalMCHC Auto (RBC) [Mass/Vol]Ordered By: Kirill Machuca on 22-35-0896JQPV (RBC) [Mass/Vol]33.7 g/dL32.0-35.0[facility] CenterMCV Auto (RBC) [Entitic vol]Ordered By: Kirill Machuca on 78-68-1087NVV (RBC) [Entitic vol]92.5 fL 80-100[facility] CenterMonocytes Auto (Bld) [#/Vol]Ordered By: Kirill Machuca on 24-81-5116Bgehsvpqu (Bld) [#/Vol]0.3 10*3/uL0.0-0.8[facility] CenterMonocytes/100 WBC Auto (Bld)Ordered By: Kirill Machuca on 30-04-9129Zauqqqtgy/100 WBC (Bld)6.1 %.[facility] Neutrophils Auto (Bld) [#/Vol]Ordered By: Kirill Machuca on 09-90-5018Tkfgfnqrihm (Bld) [#/Vol]3.8 10*3/uL1.8-7.7FThe Jewish HospitalNeutrophils/100 WBC Auto (Bld)Ordered By: Kirill Machuca on 36-90-5829Ypvhehakdtk/100 WBC (Bld)75.7 %.[facility] CenterNo Panel InformationOrdered By: Kirill Machuca on 38-81-1430Bnxbscxzc GFR (CKD-EPI)> 60.0 mL/MinDayton Va Medical Center Nicotine MetaboliteNegativeCutoff=25[facility] CenterComment on above:Performed at: [facility] [id number] Director: Wes Cole MD, Phone: [phone] Creatinine Clearance (ChemN/AFThe Jewish HospitalNucleated erythrocytes [Presence] in Blood by Automated countOrdered By: Kirill Machuca on 06-27-2023 Nucleated RBC Auto Ql (Bld)0.0 /100{WBC}0-0.5FThe Jewish Hospital Platelet mean volume Auto (Bld) [Entitic vol]Ordered By: Kirill Machuca on 93-37-6218Yopymvvw mean volume (Bld) [Entitic vol]8.8 fL6.3-10.7FThe Jewish HospitalPlatelets Auto (Bld) [#/Vol]Ordered By: Kirill Machuca on 50-22-0769Wxycadtjg (Bld) [#/Vol]183 10*3/fF452-387OkrihvgfhDayton Va Medical CenterPotassium [Moles/volume] in Serum or PlasmaOrdered By: Kirill Machuca on 33-61-0362Ikghipfef [Moles/Vol]4.3 mmol/L3.5-5.1FThe Jewish HospitalProtein [Mass/volume] in Serum or PlasmaOrdered By: Kirill Machuca on 13-87-2554Sudjtzb [Mass/Vol]6.4 g/dL6.4-8.9[facility] CenterRBC Auto (Bld) [#/Vol]Ordered By: Kirill Machuca on 46-86-3981BYO (Bld) [#/Vol]4.23 10*6/uL3.60-5.00Pomerene Hospitalerum or plasma albumin/globulin mass ratioOrdered By: Kirill Machuca on 24-10-6591Howerzw/Globulin [Mass ratio]2.4 {ratio}[facility]omerene Hospitalerum or plasma anion gap determinationOrdered By: Kirill Machuca on 93-46-3053Dbpgv gap [Moles/Vol]8.3 mmol/L6.0-15.0Pomerene Hospitalerum or plasma high density lipoprotein (HDL) cholesterol measurementOrdered By: Kirill Machuca on 06-27-2023 Cholesterol in HDL [Mass/Vol]71 mg/hH69-29TcylstlkbDayton Va Medical Center Comment on above:HDL CHOL ATP-III CLASSIFICATION Cardiovascular RiskHDL > or equal to 60 mg/dL LOWHDL < 40 mg/dL HIGHSerum or plasma total cholesterol/high density lipoprotein (HDL) cholesterol mass ratOrdered By: Kirill Machuca on 25-21-5819Galitvmqbzh.total/Cholesterol in HDL [Mass ratio]2.8 {ratio}<5.0 [facility]ome[facility] Hospitalodium [Moles/volume] in Serum or PlasmaOrdered By: Kirill Machuca on 24-94-2386[place]an [Moles/Vol]141 mmol/U061-474HlvgxrhrhDayton Va Medical CenterThyrotropin [Units/volume] in Serum or PlasmaOrdered By: Kirill Machuca on 07-56-9989ORW Qn1.02 m[IU]/L0.45-5.33[facility] Medical CenterTriglyceride [Mass/volume] in Serum or PlasmaOrdered By: Kirill Machuca on 10-21-6605Szkjylrdnugv [Mass/Vol]72 mg/dL0-149[facility] Comment on above:TRIG ATP III CLASSIFICATIONTRIG less than 150 mg/dL NormalTRIG 150-199 mg/dL Borderline highTRIG 200-500 mg/dL High TRIG greater than 500 mg/dL Very highStandard traceable to the Center for Disease Conrtrol and Prevention (CDC) test method.Urea nitrogen [Mass/volume] in Serum or PlasmaOrdered By: Kirill Machuca on 89-60-6453Cegm nitrogen [Mass/Vol]20 mg/dL7-25[facility] CenterWBC Auto (Bld) [#/Vol]Ordered By: Kirill Machuca on 88-55-8107BCU (Bld) [#/Vol]5.0 10*3/uL3.8-11.6FThe Jewish HospitalNo Panel InformationOrdered By: Leora Zamudio on 83-18-4539Lcid Prep Pap Interpretation Note.[facility] Medical CenterComment on above:TESTS RESULT FLAG UNITS REF RANGE LAB Cl inician Provided Cytology Information No. of containers..01 ThinPrep VialDIAGNOSIS: 01 NEGATIVE FORINTRAEPITHELIAL LESION OR MALIGNANCY. CELLULAR CHANGES ASSOCIATED WITH ATROPHY ARE PRESENT.Specimenadequacy: 01 Satisfactory for evaluation. Endocervical component may not be distinguished in cases of atrophy.Performed by: 01 Sirena Hughes, Oncology Rep (ASCP). 01Note: Note 01 The Pap smear isma screening test designed to aid in the detection of premalignant and malignant conditions of the uterine cervix. It is not a diagnostic procedure and should not be used as the sole means of detecting cervical cancer. Both false-positive and false-negative reports do occur.Test Methodology: Note 01This liquid based ThinPrep(R) pap test was screened with the use of an image guided system.. 01 TheHPV DNA reflex criteria were not met with this specimen result therefore, no HPV testing was perform ed. FLAG LEGEND: L- Low Normal,H-High Normal,LL-Alert Low,HH-Alert High <-Panic Low,>-Panic High,A-Abnormal,AA-Critical Abnormal------- Performed at:[facility] [address] [place] [address] Senait De La Cruz MD, Geqbzevkj at: [facility] KrswprbAofobhmefz[address] [place], [place] [id number] Director: Senait De La Cruz MD, Phone: [phone] Quick Testingon 17-49-7267VwanowPnglvfgpEbstf GE[employer]tms Other CNOVSPon 11-87-3325KXYOMRClkmi (SP) Office ([place]) CLARITA AGIULERA ([id number]) 1970 F Date Time Provider Department 09/11/21 3:45 PM MONTSE GARCIA During your visit today, we recorded the following information about you: Temperature Pulse Respiration Blood pressure 97.3 degrees 81/minute 16/minute 99/69 Weight Height 51.3 kg 1.6 m Montse Garcia MD 09/13/2021 1:04 PM Signed PATIENT NAME: Clarita Aguilera DATE: 09/11/2021 PRIMARY CARE PHYSICIAN:Garima Miller DO [...] Peripheral pulses: Normal RADIOLOGIC DATA: 06/13/20[place] No mammographic evidence of malignancy. Routine follow-up in 1 year recommended. 09/07/2013 CT CAP [place] Stable soft tissue attenuation along with a [...] Value 09/11/2021 38.6 WBC (more content not included)...NormalKettering Health Troyp Metabolic Panelon 1969Vzdvkph [Mass/Vol]4.7 g/dLNormal3.9-4.9CSumma Health ClevelandALP [Catalytic activity/Vol]68 U/OQjrhja21-274Fitvfdnec Clinic ClevelandALT [Catalytic activity/Vol]8 U/LNormal7-38[facility] Anion gap [Moles/Vol]9 mmol/LNormal9-18[facility] ClevelandAST [Catalytic activity/Vol]10 U/CAwk51-12Wunvablwc Clinic ClevelandBilirubin [Mass/Vol]0.4 mg/dLNormal0.2-1.3CSumma Health ClevelandCalcium [Mass/Vol]10.1 mg/dLNormal 8.5-10.2CSumma Health ClevelandChloride [Moles/Vol]101 mmol/WTpkiiu00-499 [facility] ClevelandCO2 [Moles/Vol]29 mmol/EZcubsx45-56Deofggkwj Clinic ClevelandCreatinine [Mass/Vol]0.81 mg/dLNormal0.58-0.96[facility] HospitaleGFR- Amer.>60NormalCSt. Anthony's HospitalvelandeGFR-All Other Races>60NormalCAvita Health System Bucyrus [facility] on above:Result Comment: eGFR (Estimated GFR) Units of measure: [...] visit the National Kidney Foundation website at kidney.org/professiona ls/kdoqi/gfr_calculator.Glucose [Mass/Vol]116 mg/iPElso64-77VgyomslwaBethesda North Hospital on above:Result Comment: The [place] Diabetes Association (ADA) provides guidance for cutoff values for fasting glucose and random glucose. The ADA defines fasting as no caloric intake for at least 8 hours. F asting plasma glucose results between 100 to 125 [...] Standards of Medical Care in Diabetes 2016, [place] Diabetes Association. Diabetes Care. 2016.39(Suppl 1).Potassium [Moles/Vol]3.6 mmol/LLow 3.7-5.1CSumma Health ClevelandProtein [Mass/Vol]7.1 g/dLNormal6.3-8.0 [facility] HospitalSodium [Moles/Vol]139 mmol/XPrfkoo675-386WmqidfdprDayton Osteopathic HospitalUrea nitrogen [Mass/Vol]19 mg/dLNormal7-21[facility] HospitalRemote CBCDIF (for [facility] use only)on 52-03-3983Ffv Baso0.05 k/uLNormal <0.11CPremier Health Miami Valley HospitalAbs Mono0.37 k/uLNormal<0.87[facility] HospitalAbs Neut4.51 k/uLNormal1.45-7.50[facility] HospitalAbsolute nRBC <0.01Normal<0.01[facility] HospitalBasophils/100 WBC (Bld)0.8 %Normal [facility] HospitalDTYPEAuto DiffNormalCPremier Health Miami Valley Hospital Eosinophils (Bld) [#/Vol]0.11 10*3/uLNormal<0.46[facility] Eosinophils/100 WBC (Bld)1.8 %NormalDayton Osteopathic HospitalErythrocyte distribution width (RBC) [Ratio]12.1 %Dvlhrt05.5-15.0[facility] Hematocrit (Bld) [Volume fraction]38.6 %Fnxjdv10.0-46.0[facility] HospitalHemoglobin (Bld) [Mass/Vol]12.9 g/jUQttuua77.5-15.5CPremier Health Miami Valley HospitalLymphocytes (Bld) [#/Vol]0.92 10*3/uLLow1.00-4.00[facility] HospitalLymphocytes/100 WBC (Bld)15.4 %NormalDayton Osteopathic HospitalMCH31.5 fHCiwzkg97.0-34.0[facility] HospitalMCHC (RBC) [Mass/Vol]33.4 g/dLNormal 30.5-36.0St. Charles HospitalV (RBC) [Entitic vol]94.1 fLNormal 80.0-100.0[facility] HospitalMonocytes/100 WBC (Bld)6.2 %NormalDayton Osteopathic HospitalNeutrophils/100 WBC (Bld)75.8 %NormalDayton Osteopathic Hospital NRBCs0.0 /100 VHJSejqon2JvoyquwaxDayton Osteopathic HospitalPlatelet mean volume (Bld) [Entitic vol]10.3 fLNormal9.0-12.7CPremier Health Miami Valley HospitalPlatelets (Bld) [#/Vol]205 10*3/yGJwohtz862-712GdivcpyhrDayton Osteopathic HospitalRBC (Bld) [#/Vol]4.10 10*6/uLNormal3.90-5.20[facility] HospitalWBC (Bld) [#/Vol]5.98 10*3/uL Normal3.70-11.00[facility] Vital Signs Date TimeVital SignValuePerforming YjcbggbgnKnrajfin60-29-8231 14:26-0500Body .6 cmBencollin Murcek DO Work Phone: [facility] HealthcareXkntonpour55-26-1570 14:26-0500Body mass index (BMI) [Ratio]20.25 kg/x9Vksisfkh Murcek DO Work Phone: [facility] HealthcareKlnuheckrv76-66-0435 14:26-0500Body .52 kgBencollin Murcek DO Work Phone: [facility] HealthcareFupknqehkp14-05-2635 13:03-0400Body zjkdni547.8 cmAllashly Petznick DO Work Phone: [facility] HealthcareHdsjsrnxql35-12-0137 13:03-0400Body mass index (BMI) [Ratio]21.24 kg/j2Pcopypn Petznick DO Work Phone: [facility] HealthcarePaumiviwjd22-26-2783 13:03-0400Body temperature 98.1 [degF]Garima Petznick DO Work Phone: [facility] HealthcareHolhmwgtqm16-59-2985 13:03-0400Body irvwdu67.52 kgAllison Petznick DO Work Phone: [phone] [place] [address]-28-2025 13:03-0400Diastolic blood mm[Hg]Garima Petznick DO Work Phone: [facility] HealthcareAsohvopkyb80-57-1902 13:03-0400Heart rate73 /min Garima Petznick DO Work Phone: [place] [address]Xgrilwkdce56-65-9754 13:03-6368PoK2% (BldA) [Mass fraction]98 %Garima Petznick DO Work Phone: [phone] [place], [place] [address]-28-2025 13:03-0400Systolic blood fwubonyc901 mm[Hg]Garima Petznick DO Work Phone: [phone])[address] [place], [place] 47[address]10-22-2025 10:07-0400Body mass index (BMI) [Ratio]21.06 kg/i1Vuhondpi Rinkes DO Work Phone: 1(805)[facility] [place], [place] [address]Hmfafutluk95-12-4860 10:07-0400Body npywns94.07 kgKathlanisha Villarrealkes DO Work Phone: [phone] [place], [place] [address]10-22-2025 10:07-0400Diastolic blood exxnxyug07 mm[Hg]Leora Villarrealkes DO Work Phone: 1(161)[facility] [place], [place] [address]Cfwzfjhwjm34-71-7649 10:07-0400Systolic blood bfplixdo710 mm[Hg]Leora Villarrealkes DO Work Phone: [phone] [place], [place] [address]08-26-2025 08:18-0400Body .8 cmAllison Petznick DO Work Phone: 1(565)[address] [place], [place] 4738708-26-2025 08:18-0400Body mass index (BMI) [Ratio]20.88 kg/a7Gqxadpf Petznick DO Work Phone: 1(833)[address] [place], [place] 4738708-26-2025 08:18-0400Body temperature 98.01 [degF]Garima Petznick DO Work Phone: 1(784)[address] [place], [place] 47[address]708-26-2025 08:18-0400Body jjypsn42.62 kgAllison Petznick DO Work Phone: 1(197)[address] [place] [address]-26-2025 08:18-0400Diastolic blood phjdycje66 mm[Hg]Garima Petznick DO Work Phone: 1(394)[address] [place] [address]-26-2025 08:18-0400Heart rate65 /min Garima Petznick DO Work Phone: 1(456)[address] [place] [address]-26-2025 08:18-5298DjQ5% (BldA) [Mass fraction]98 %Garima Petznick DO Work Phone: 1(804)[address] [place] [address]-26-2025 08:18-0400Systolic blood pleaxold506 mm[Hg]Garima Petznick DO Work Phone: [facility] HealthcareWrcbeofsdy74-42-8508 11:01-0400Body ddukoc304.8 cmKathlanisha Villarrealkes DO Work Phone: [facility] HealthcareBwxfjpxttm97-64-7095 11:01-0400Body mass index (BMI) [Ratio]21.24 kg/a2Yhrfdnxo Rinkes DO Work Phone: [facility] HealthcareTuaatwbgjm95-27-1872 11:01-0400Body pirjxd57.52 kgKathlanisha Zamudio DO Work Phone: [facility] HealthcareGrawdfebrp18-49-7535 11:01-0400Diastolic blood anzvgudl55 mm[Hg]Leora Villarrealkes DO Work Phone: [facility] HealthcareUdsvpltbvg09-09-1539 11:01-0400Systolic blood xoeyrrec722 mm[Hg]Leora Villarrealkes DO Work Phone: 1(836)[facility]-7983[facility] HealthcareAwvgjfkqss17-68-4630 13:12-0400Body xymyac002.8 cmAllashly Petznick DO Work Phone: [facility] HealthcareUczxpvjlue81-06-3261 13:12-0400Body mass index (BMI) [Ratio]21.06 kg/p6Lleeyro Petznick DO Work Phone: [facility] HealthcareTeirhxtqnp31-16-4752 13:12-0400Body temperature 97.59 [degF]Garima Petznick DO Work Phone: 1(716)[facility] [place], [place] [address]Zlyjkrfcwu89-84-0347 13:12-0400Body gqnwap62.07 kgAllison Petznick DO Work Phone: [phone])060-[address] [place], [place] [address]Pyyfqltoaa86-50-4140 13:12-0400Diastolic blood txatlqbs01 mm[Hg]Garima Petznick DO Work Phone: 1(473)[facility] [place], [place] [address]Gwvfiqchkd78-80-0952 13:12-0400Heart rate65 /min Garima Petznick DO Work Phone: [facility] HealthcareZdlibpivsg01-67-9686 13:12-1807AdZ9% (BldA) [Mass fraction]99 %Garima Petznick DO Work Phone: [facility] HealthcareKzbkswmskw05-18-5165 13:12-0400Systolic blood euoztfyn441 mm[Hg]Garima Petznick DO Work Phone: [facility] HealthcareXvcjrqjrfa40-49-8786 15:20-0500Body .02 cmDO Leora Rinkes Work Phone: 1(699)[address] [place], [place] 8327412-20-2023 15:20-0500 Body ddeevbzxvpj65.3 [degF]DO Leora Rinkes Work Phone: 1(393)[address] [place], [place] 8327412-20-2023 15:20-0500 Body spmkwa40.52 kgDO Leora Rinkes Work Phone: 1(119)[address] [place], [place] 8327412-20-2023 15:20-0500 Diastolic blood dfkugdrv92 mm[Hg]DO Leora Rinkes Work Phone: 1(875)[address] [place], [place] 832[address]12-20-2023 15:20-0500 Heart rate81 /minDO Leora Rinkes Work Phone: 1([phone] [place], [place] 832[address]12-20-2023 15:20-0500 Respiratory rate16 /minDO Leora Rinkes Work Phone: [phone] [place], [place] 8327412-20-2023 15:20-0500 SaO2% (BldA) [Mass fraction]100 %DO Leora Rinkes Work Phone: 1(516)[address] [place], [place] 8327412-20-2023 15:20-0500 Systolic blood ijbcbtce429 mm[Hg]DO Leora Rinkes Work Phone: [phone] [place] [address] Encounters Encounter DateEncounter TypeCare ProviderFacilityStart: 08-09-2025 End: 94-83-3426Zycpfl outpatient new 45 minutesBencollin Rosenberg DO Work Phone: NOHY [place] OtolaryngologyComment on above:Multiple thyroid nodules (Primary Dx)Start: 08-09-2025 End: 28-01-9235pqfseljqmsILOEBCJC W MURCEKNot AvailableStart: 08-09-2025 End: 25-49-9257Zyhodd flowsheetBenjamin W Murcek DO Work Phone: [facility] [place] OtolaryngologyStart: 08-09-2025 End: 31-98-5163Sntyxk flowsheetBenjamin W Murcek DO Work Phone: [facility] [place] OtolaryngologyStart: 07-27-2025 End: 24-88-3760Muesby flowsheetAllison Elisa Petznick DO Work Phone: noms [facility] 230Start: 07-27-2025 End: 13-93-2716Izflzn flowsheetAllison M Petznick DO Work Phone: noms [facility] 230Start: 07-27-2025 End: 33-14-7450Cuawjl outpatient visit 15 minutesAllison Elisa Petznick DO Work Phone: noMS [facility] 230Comment on above: Anxiety (Primary Dx); Multiple thyroid nodulesStart: 07-27-2025 End: 17-02-6594bapbbsgmshSABDKRY lEisa PETVIRGIEICKNot AvailableStart: 07-21-2025 End: 70-20-0376Olzyym flowsheetKathleen E Rinkes DO Work Phone: NOBN [place] OBGYNStart: 07-21-2025 End: 55-96-8267Fdpjuf flowsheetKathleen E Rinkes DO Work Phone: [facility] [place] OBGYNStart: 07-21-2025 End: 23-81-9761Kxpyguel ReferredKathleen E Rinkes DO-Lab [facility] Work Phone: Start: 07-21-2025 End: 16-51-1115Fbgclev encounter statusKathleen E Rinkes DO Work Phone: noms HealthcareStart: 07-21-2025 End: 80-11-2517Ecgcgedq preventive med est patient 40-64yrsKathalek Zamudio DO Work Phone: noms [place] OBGYNComment on above:Encounter for gynecological examination without abnormal finding; Screening for malignant neoplasm of cervix; Encounter for screening mammogram for breast cancerStart: 07-21-2025 End: 09-37-7965xxcvkcbnbfFhkzbco Petznick DO Work Phone: -[facility] CampusStart: 06-01-2025 End: 52-59-7975Erxpzzq encounter procedureAllison Petznick DO-Ultrasound [facility] Work Phone: Start: 06-01-2025 End: 57-16-9500wbyrmhrwvnSnctuzl Petznick DO Work Phone: [facility] Work Phone: Start: 05-25-2025 End: 54-63-2625Mzpkpc flowsheetAllison M Petznick DO Work Phone: noms [facility] 230Start: 05-25-2025 End: 45-22-8726Jvkvoh flowsheetAllison M Petznick DO Work Phone: noms [facility] 230Start: 05-25-2025 End: 63-97-6502Lgrjjsw encounter statusAllison M Petznick DO Work Phone: [facility] Work Phone: Start: 05-25-2025 End: 71-20-3998Deoavgqw preventive med est patient 40-64yrsAllison M Petznick DO Work Phone: noms [facility] 230Comment on above: Preventative health care (Primary Dx); Anxiety; ThyromegalyStart: 05-25-2025 End: 74-44-9971rgzmagdnrjOGMOFRM M PETZNICKNot AvailableStart: 02-05-2025 End: 89-57-4563Ikjupgmw ReferredAllison Petznick DO Work Phone: [facility]-Pillars CastaliaStart: 02-05-2025 End: 00-90-8040ieblitinkyMytxpch Petznick DO Work Phone: [facility] Work Phone: Start: 08-03-2024 End: 71-30-9543Gfbjdwm encounter procedureDO Garima Petznick Work Phone: [facility] Work Phone: Start: 08-03-2024 End: 53-79-4331orddyduyadJA Garima Petznick Work Phone: [facility] Work Phone: Start: 07-07-2024 End: 17-03-9710Vgljnq flowsheetKathleen E Rinkes DO Work Phone: noms [facility] OBStart: 07-07-2024 End: 97-53-1472Odllqa flowsheetKathleen E Rinkes DO Work Phone: noms [facility] OBStart: 07-07-2024 End: 39-76-5820Biersqt encounter statusKathleen E Rinkes DO Work Phone: noms HealthcareStart: 07-07-2024 End: 23-13-8753Amodurgw preventive med est patient 40-64yrsKathleen E Rinkes DO Work Phone: noms [facility] OBComment on above:Encounter for gynecological examination without abnormal finding; Screening for malignant neoplasm of cervix; Encounter for screening mammogram for breast cancerStart: 07-07-2024 End: 63-64-6509gohwburzaiXA Garima Petznick Work Phone: [facility] Work Phone: Start: 07-07-2024 End: 68-31-8861Tdxrmzbl ReferredDO Garima Petznick Work Phone: [facility]-Lab [facility] Work Phone: Start: 06-29-2024 End: 07-34-0051Umfkqz flowsheetAllison M Petznick DO Work Phone: [facility] 230Start: 06-29-2024 End: 96-75-2319Hembhl flowsheetAllashly Miller DO Work Phone: NONV [facility] 230Start: 06-29-2024 End: 69-41-1091Lkvhudk encounter statusGarima Miller DO Work Phone: [facility] Work Phone: Start: 06-29-2024 End: 20-19-6048Gchjrojz preventive med est patient 40-64yrsAllison Elisa Miller DO Work Phone: NOBD [facility] 230Comment on above:Preventative health care (Primary Dx)Start: 06-26-2024 End: 60-97-5074Iwddiaxih encounterAllashly Miller DO Work Phone: NOFK [facility] 230Start: 05-05-2024 End: 68-36-1225huuiimniuoQB Garima Miller Work Phone: [facility] Work Phone: Start: 05-05-2024 End: 96-15-4735Fjsqtflm ReferredDO Garima Miller Work Phone: [facility]-Pillars CastaliaStart: 09-18-2023 End: 95-87-5724Jehqrdwrv department patient visitDO Leora Zmaudio Work Phone: [facility]-Emergency Room Work Phone: Start: 06-27-2023 End: 59-02-5722lquqjhdvrhVYYNMUUQC NO [facility] Work Phone: Start: 06-27-2023 End: 20-82-2437Hmuetrwd ReferredPHYSICIAN NO [facility]-Employee Benefit ScreeningStart: 06-25-2023 End: 40-67-1185oyiqedzyqgECOSNNPYJ NO [facility] Work Phone: Start: 06-25-2023 End: 20-64-5806Wzdjkyy encounter procedurePHYSICIAN NO [facility] Work Phone: Start: 06-13-2023 End: 50-53-5237qxfbmwaqslPB Leora Zamudio Work Phone: [facility] Work Phone: Start: 06-13-2023 End: 27-39-5370Wlzjsgnk ReferredDO Leora Zamudio Work Phone: [facility]-Lab [facility] Work Phone: Start: 05-31-2022 End: 61-45-1928Jjgfyddh ReferredDO Garima Petznick Work Phone: [facility]-Lab [facility] CenterStart: 03-15-2022 End: 73-36-8704Tfoafpi encounter procedureDO Garima Petznick Work Phone: [facility]-XRay Str[address] RdStart: 10-01-2021 End: 43-43-7440cnxrbfcgtjJhftdh Taylor Other [place] [employer]tms Other Start: 07-03-2568Kbzsrc outpatient visit 5 minutes [facility] [address] Procedures DateProcedureProcedure DetailPerforming ClinicianStart: 74-03-5310EL scan of thyroidAllison Petznick DO Work Phone: Start: 08-03-2024 End: 34-56-7534Twvxwexop mammography of bilateral breastsDO Garima Petznick Work Phone: Start: 10-99-5956UnzsucohxewEoetegk Petznick DO Work Phone: Start: 48-38-1676Hjwrjqzps mammography of bilateral breastsPHYSICIAN NO FAMILYStart: 90-02-9630C-ray of lumbar spine, four or more viewsDO Garima Petznick Work Phone: Start: 67-38-1999LfoopwjlfpkIwouzup Petznritu Work Phone: Plan of Treatment DateCare ActivityDetailAuthorStart: 68-84-3354Usykapksk for malignant neoplasm of colonNOMS HealthcareStart: 07-27-2026 End: 71-79-9919Akhggdm encounter cqvnhoxve05/28/2026 2:30 PM EDT Office Visit NOMXavi [place] GARCIA [address] [place] [address] Leora Zamudio, [address] [place] [address] MANOJXavi [place] BREWERNStart: 08-24-2025 End: 15-11-3934Gqcumnd encounter zbmictlup45/25/2025 8:00 AM EST Office Visit [facility] [address] [place], [id number] Chad Rosenberg, DO [address] [place] [address] MON[facility] OtolaryngologyStart: 08-09-2025 End: 95-85-7988Ovykueq encounter rgplqcfpa94/10/2025 2:30 PM EST Office Visit [facility] [facility] [address] [place], [id number] Chad Rosenberg W, DO [address] [place] [address] ArrivedNOMS [facility] Comment on above:ArrivedStart: 27-46-2410Fsllixwvz for malignant neoplasm of breastMammogramNOMS HealthcareStart: 07-27-2025 End: 74-85-4803Pcbflmx encounter procedureNOMS [facility] 230 Comment on above:ArrivedStart: 07-21-2025 End: 90-30-9153Zchrwhr encounter procedureNOMS SWS OBComment on above:Encounter for gynecological examination without abnormal finding; Screening for malignant neoplasm of cervix; Encounter for screening mammogram for breast cancerStart: 28-48-0546OQRIS-19 Vaccine ( season)COVID-19 Vaccine ( season)[facility] Healthcare Start: 62-22-3275Gigcpcqir vaccinationInfluenza Vaccine (#1)[facility] Start: 05-25-2025 End: 14-88-6318ZX Thyroid glandUS thyroid Imaging Routine Thyromegaly Expected: 05/25/2025, Expires: 05/25/2026[facility] Work Phone: Comment on above:Expected: 05/25/2025, Expires: 05/25/2026Start: 05-25-2025 End: [id number] encounter [email or web address]/26/2025 8:15 AM EDT Office Visit [facility] [address] [place] [phone] Garima Miller, [address] [place] [address] [facility] 230Comment on above:ArrivedStart: 07-07-2024 End: 26-72-7547Ccjxlns encounter procedureNOMS SWS OBComment on above:Encounter for gynecological examination without abnormal finding; Screening for malignant neoplasm of cervix; Encounter for screening mammogram for breast cancerStart: 06-29-2024 End: 90-58-3171Xbqamir encounter procedureNOMS SWS FM 230Comment on above: ArrivedStart: 85-45-6858Rlnldeitg for malignant neoplasm of breastMammogramNOTN HealthcareStart: 89-57-4313Ivnjktypl vaccinationInfluenza Vaccine (#1)[facility] HealthcareStart: 34-54-5343QkcmlgowvPomerene Hospitaltart: 1999 Screening for malignant neoplasm of cervixNOMS HealthcareStart: 1990 Screening for malignant neoplasm of cervixPap SmearNOTN HealthcareStart: 77-51-3544Uttzipaaw B Vaccines (1 of 3 - 19+ 3-dose series)Hepatitis B Vaccines (1 of 3 - 19+ 3-dose series)[facility] HealthcareStart: 26-99-5557Egowhxreczxg Vaccine: Pediatrics (0 to 5 Years) and At-Risk Patients (6 to 64 Years) (1 of 2 - PCV)Pneumococcal Vaccine: Pediatrics (0 to 5 Years) and At-Risk Patients (6 to 64 Years) (1 of 2 - PCV)[facility] HealthcareStart: 85-12-6891EXyL/Tdap/Td Vaccines (1 - Tdap)DTaP/Tdap/Td Vaccines (1 - Tdap)[facility] HealthcareStart: 29-93-0922MDT Vaccines (1 of 1 - Standard series)MMR Vaccines (1 of 1 - Standard series)[facility] HealthcareStart: 45-46-4587Ezzddibdq for malignant neoplasm of colonNOKindred HospitalDBT Breast - bilateral screeningBilateral screening mammogram with tomosynthesis Imaging Routine Encounter for screening mammogram for breast cancer Ordered: 07/07/2024[facility] HealthcareComment on above:Ordered: 07/07/2024BT Breast - bilateral screeningBilateral screening mammogram with tomosynthesis Imaging Routine Encounter for screening mammogram for breast cancer Ordered: 07/21/2025[facility] Work Phone: comment on above:Ordered: 07/21/2025[facility] papilloma virus 16+18+31+33+35+39+45+51+52+56+58+59+66+68 DNA [Presence] in Cervix by Probe with signal amplificationR[facility] papilloma virus 16+18+31+33+35+39+45+51+52+56+58+59+66+68 DNA [Presence] in Cervix by Probe with signal amplificationRiverview Health Institute papilloma virus 16+18+31+33+35+39+45+51+52+56+58+59+68 DNA [Presence] in Cervix by Probe withsignal amplificationRiverview Health Institute papilloma virus 16+18+31+33+35+39+45+51+52+56+58+59+68 DNA [Presence] in Cervix by Probe with signal amplificationDayton Va Medical CenterPAP IG, RFX HPV ALL PTH ([facility])PAP IG, [place] Lab Routine Screening for malignant neoplasm of cervix Ordered: 07/07/2024[facility] Work Phone: comment on above:Ordered: 4PAP IG, RFX HPV [place] PTH [place]PAP IG, RFX [place]TH [place] Lab Routine Screening for malignant neoplasm of cervix Ordered: 07/21/2025[facility] HealthcareComment on above:Ordered: 07/21/2025[facility] Work Phone: [facility] Work Phone: [facility] Immunizations Immunization DateImmunizationNotesCare BxjgbhrwSyayelci24-56-1902fvntidfiq, injectable, quadrivalent, preservative freeAllison Petznick DO Work Phone: [phone] [place], [place] [address]Qjkkwbavhq17-92-9082ilzdvstsh virus vaccine, unspecified formulationAllison Petznick DO Work Phone: [phone] [place], [place] [address]Ehvhiagasz67-21-9239ypyiwoeqo, injectable, quadrivalent, contains preservativeAllison Petznick DO Work Phone: [phone] [place], [place] [address]Umheueiwqy14-51-2469OVXXE-15 mRNA-1273 (Moderna) DO Garima Petznick Work Phone: [phone] [place], [place] 1971312-23-2020COVID-19 mRNA-1273 (Moderna)DO Garima Petznick Work Phone: [phone] [place], [place] 1971310-02-2018influenza, seasonal, injectable, preservative freeAllison Petznick DO Work Phone: [phone] [place] [address] Payers DatePayer CategoryPayerPolicy [id number]-qus [id number] Health InsuranceMEDICAL MUTUAL [id number] [facility] [id number] 2022-Present [address] [place] [id number] [id number] 2.0.1.873337.3.579.2.1259 [id number] 2.0.1.603843.3.579.2.991772-89-7137Wovtlpg [id number] 2.0.1.356540.3.57[id number] 2.0.1.49[id number] 2.0.1.760841.3.579.2.531 [id number] 2.0.1.6[id number] 2.0.1.7[id number] 2.0.1.996167.3.579.2.531 Worker's [id number] Social History DateTypeDetailFacilityUnknown if ever smokedNoalvin j. [facility] cancer [facility] GEOCOMtms Other Start: 06-29-2024 End: 25-16-7882Mpz Assigned At [facility] GEOCOMtms Other Start: 06-21-2021 End: 75-27-5674Unenrin smoking status NHISNever smoked tobacco (finding) [facility] Hospitaltart: 78-95-6724Vma Assigned At [facility] Foundationtart: 56-93-0814Txektoo use and exposure Smokeless tobacco non-userNOMS HealthcareStart: 07-02-2024 End: 29-47-3786Vgvpbbpji beverage intakeCurrent drinker of alcohol (finding)[facility] HealthcareStart: 06-29-2024 End: 10-95-4032Cnivanq of Social functionNOTN HealthcareHow often to you have a drink containing alcohol?2-4 times a monthNOTN HealthcareHow many standard drinks containing alcohol do you have on a typical day?1 or 2NOMS HealthcareHow often do you have 6 or more drinks on 1 occasion?NeverNOMS HealthcareStart: 99-30-1490Wgztdqn Commentcaffeine: 1-2 cups per dayVAL[facility] HealthcareStart: 05-02-8673Zry assigned at birthNot on fileNOTN HealthcareHow often to you have a drink containing alcohol?Monthly or lessNOMS HealthcareStart: 22-42-9879Fou Female (finding)[facility] Hospitaltart: 30-36-3920OpfRfpzggCLHO Healthcare Functional Status IlnlRxnenwieanWztikjRkcrkoah94-10-8177Whoyx score [AUDIT-C]2 05/25/2025 8:21 AM EDT Keara Louise LPNNOMS Igdfmbtsum70-39-0833Ixpzoqc Health Questionnaire 2 item (PHQ-2) [Reported][facility] Clinical Notes 09-11-2021 to 08-09-2025 Note Date & RnodSdnzHwaflwcn89-14-0212 History of Present illness Narrative* Chad Rosenberg, DO - 08/09/2025 2:30 PM EST Subjective Patient ID: HPI 54-year-old female self-referred for thyroid nodules. She underwent a thyroid ultrasound recently because of proceed thyromegaly. The ultrasound shows that the lobes are of the upper limit of normal.She has multiple small hypoechoic nodules, they are reporting a 14 mm 1 on the left and a 12 mm 1 on the right. She has no personal risk factors for thyroid cancer, she does have some mild globus sensation. Review of Systems ROS The specialty specific review of systems is noncontributory except for that recorded in the intake questionnaire and /or described in the history of present illness. Objective ENT Physical Exam Physical Exam Constitutional: Appearance: Normal appearance. HENT: Head: Atraumatic. Ears: External ear shows no abnormality Bilateral ear canals are clear Tympanic membranes intact, no evidence of middle ear fluid or other pathology. Nose: External nose appears to be normal Nares patent. Septal deviation to the right No evidence of polyp, mass or pus bilaterally. Oral Cavity: No evidence of trismus Lips appear normal Dental good Tongue of normal size and configuration, floor of mouth mucosa clear. Buccal mucosa shows no evidence of ulceration, mass or other abnormality Hard palate soft palate mucosa intact with no evidence of mass, ulceration or other abnormality Uvula of normal size and configuration Oropharynx: Tonsils atrophic Posterior pharyngeal wall normal Neck: No evidence of palpable abnormality Thyroid without evidence of thyromegaly or mass. No cervical lymphadenopathy present. Cardiovascular: Rate and Rhythm: Normal rate and regular rhythm. . Skin: General: Skin is warm and dry. Neurological: General: No focal deficit present. Mental Status: alert and oriented to person, place, and time. THYROID ULTRASOUND EXAMINATION Indication: Thyroid nodule After informed consent was obtained the patient was placed supine on the examining table. Patient was asked to extend the neck. Topical ultrasound jelly was used. The right lobe of the thyroid gland measures __ 5 cm in greatest dimension. Throughout the parenchyma are a few subcentimeter hypoechoic nodules and cysts with no untoward ultrasonic features. There is a 1.4 cm superior nodule with moderate internal vascularity but no calcifications. The isthmus is unremarkable. The left lobe of the thyroid gland measures __ 5.3 cm greatest dimension. A few subcentimeternodules and cysts. There is a hypoechoic nodule superiorly with no internal vascularity or calcification measures 1.2 cm in greatest dimension. There is no adenopathy in the central compartment. There is no appreciable adenopathy in either lateral neck. Assessment/Plan Clarita was seen today for thyroid nodule. Diagnoses and all orders for this visit: Multiple thyroid nodules (Primary) Risks and benefits were discussed, consent was given. We will get that approved by insurance and perform the in the office sometime in the near future. documented in this encounterCitizens Memorial HealthcareOgljlxsxim81-75-3669 History of Present illness Narrative* Garima Miller DO - 07/27/2025 1:31 PM EDTAssociated Problem(s): Multiple thyroid nodules Discussed at length with the pt. I do feel comfortable waiting for a year to repeat her US as the nodules are low risk and < 1 cm in size. I do not feel that her thyroid/nodules have anything to do with her sensation of something there when she swallows She is not having any trouble swallowingand thyroid/nodules are not large enough to impede this. I did discuss referral to ENT and nasophary ngoscopy to look into the pharynx to give her reassurance but she is going to hold off on that. If she wants to check the US in 6 months instead of 12 months I am ok with that as well. She is to let me know. * Garima Miller DO - 07/27/2025 1:28 PM EDTAssociated Problem(s): Anxiety Doing much better and will stay on lexapro * Garima Miller DO - 07/27/2025 1:00 PM EDT Images from the original note were not included. Clarita Aguilera is a 54 y.o. female presents with chief complaint of Follow-up HPI: Anxiety Patient is here for a follow up of anxiety. Medication: Lexpro 5 mg was started at her last visit Counseling: none Feeling about 70% better since starting lexapro No side effects and would like to continue to take it She is concerned about her US of her thyroid. She feels like she can feel something in her neck when she swallows at times. She doesn't notice it when she is drinking/eating and no difficulty swallowing. SUBJECTIVE: See medication list at the end of the note. Allergies[1] REVIEW OF SYMPTOMS: Review of Systems HENT: Negative for sore throat, trouble swallowing and voice change. Psychiatric/Behavioral: The patient is nervous/anxious. OBJECTIVE: 07/27/2025 1:03 PM 07/21/2025 10:07 AM 05/25/2025 8:18 AM Vitals BMI 21.24 kg/m2 21.06 kg/m2 20.88 kg/m2 Systolic 106 112 112 Diastolic 62 64 60 Heart Rate 73 65 Temp 98.1 F 98 F Height (in) 5' 2.5 5' 2.5 Weight (lb) 118 117 116 Visit Report Report Report Report Physical Exam Constitutional: General: She is not in acute distress. Appearance: Normal appearance. Neck: Comments: Thyroid is normal without any obvious nodules on exam Cardiovascular: Rate and Rhythm: Normal rate and regular rhythm. Heart sounds: No murmur heard. No friction rub. No gallop. Pulmonary: Breath sounds: Normal breath sounds. No wheezing, rhonchi or rales. Musculoskeletal: General: No swelling. Lymphadenopathy: Cervical: No cervical adenopathy. Neurological: Mental Status: She is alert. ASSESSMENT AND PLAN: Problem List Items Addressed This Visit Anxiety - Primary Doing much better and will stay on lexapro Multiple thyroid nodules Discussed at length with the pt. I do feel comfortable waiting for a year to repeat her US as the nodules are low risk and < 1 cm in size. I do not feel that her thyroid/nodules have anything to do with her sensation of something there when she swallows She is not having any trouble swallowingand thyroid/nodules are not large enough to impede this. I did discuss referral to ENT and nasophary ngoscopy to look into the pharynx to give her reassurance but she is going to hold off on that. If she wants to check the US in 6 months instead of 12 months I am ok with that as well. She is to let me know. Follow up with Dr. Garima Miller As previously scheduled. Patient's Medications New Prescriptions No medications on file Previous Medications ESCITALOPRAM (LEXAPRO) 5 MG TABLET Take 1 tablet (5 mg) by mouth Daily Modified Medications No medications on file Discontinued Medications No medications on file I have reviewed and reconciled the history and medication list with the patient today. [1] Allergies Allergen Reactions Codeine Other Reaction(s): nausea and vomiting documented in this encounterCitizens Memorial HealthcarePvtinmmcsw31-70-0396 History of Present illness Narrative* Leora Zamudio DO - 07/21/2025 10:00 AM EDT Images from the original note were not included. Leora Zamudio D.O. Obstetrics and Gynecology Patient: Clarita Aguilera : 1970 (54 y.o.) Yearly Wellness Exam Date: 07/21/2025 Reason for Visit - Chief Complaint Patient presents with Gynecologic Exam Pt thought she had UTI last week, Had bactrim at home, took that and is feeling better. Pt states only symptom she had was burning sensation on outside of skin. Denies any other concerns. Denies breast concerns. Denies any vaginal bleeding/spotting. Visit Vitals BP 112/64 Wt 117 lb BMI 21.06 kg/m Smoking Status Never BSA 1.53 m Allergies[1] History of Present Illness, Associated Treatments and Results - OB History Para Term AB Living 2 2 2 0 0 2 SAB IAB Ectopic Multiple Live Births 0 0 0 0 2 # Outcome Date GA Lbr Rad/2nd Weight Sex Type Anes PTL Lv 2 Term 1 Term Obstetric Comments Pap smear 07/07/24 ASCUS Negative HPV [place] [facility] Review of Systems - General: Chills denies. Allergy/Immunology: Rash Denies. ENT: Denies Difficulty swallowing. Endocrine: Denies Cold intolerance denies. Heat intolerance denied. Respiratory: Denies Chest pain denies. Shortness of breath denies. Breast: Denies Bloody nipple discharge denies. Breast lump denies. Cardiovascular: Denies Chest pain. Gastrointestinal: Abdominal pain denies. Blood in stool denies. Hematology: Easy bruising denies. Prolonged bleeding denies. Women Only: Breast lump denies. Vaginal bleeding between periods is denied. Vaginal discharge/itching denied. Genitourinary: Blood in urine denies. Painful urination denies. Incontinence denies. Skin: Hair changes. Neurologic: Seizures denied. Stroke denies. Psychiatric: Anxiety denies. Depressed mood denies. Medication Documentation Review Audit Reviewed by Monica Srivastava MA (Engine Pilot) on 07/21/25 at 1005 Medication Order Taking? Sig Documenting Provider Last Dose Status escitalopram (Lexapro) 5 MG tablet [id number] Take 1 tablet (5 mg) by mouth Daily Garima Miller, Active Medical History[2] Surgical History[3] Family History[4] Physical Exam - General appearance, mentation, extraocular movements, facial strength and movement, hearing, upper and lower extremity strength and tone, sensation to gross testing, coordination, and gait are normalor at baseline unless noted below. General Examination: GENERAL APPEARANCE: alert oriented well developed, well nourished. HEAD: normocephalic atraumatic. EYES: sclera anicteric. EARS: no obvious hearing deficit. SKIN: warm and dry. HEART: regular rate and rhythm. LUNGS: clear to auscultation bilaterally. CHEST: axillary nodes grossly normal. BREASTS: no masses palpable bilaterally, normal nipples bilaterally. ABDOMEN: soft, nontender, nondistended, no masses palpable. BACK: no costovertebral angle tenderness, no obvious scoliosis/kyphosis. FEMALE GENITOURINARY: atrophic vaginal mucosa, cervix absent of lesions, nontender, uterus AV, mobile, ovaries nonpalpable and nontender. EXTREMITIES: no edema. NEUROLOGIC: alert and oriented. PSYCH: cooperative with exam. Diagnoses and all orders for this visit: Encounter for gynecological examination without abnormal finding Screening for malignant neoplasm of cervix - PAP IG, RFX [place] Encounter for screening mammogram for breast cancer - Bilateral screening mammogram with tomosynthesis Pap, pelvic and breast exam completed. Findings of today's exam discussed with the patient. Continue MSBE. Ca/Vit D recommendations reviewed with the patient. The patient is to contact the office with any changes to her gynecological condition. The patient is to return in 1 year or as needed Discussed burning sensation could be related to atrophy- she states not her typical symptoms of UTI. Patient to call if symptoms return. ICD-10-CM 1. Encounter for gynecological examination without abnormal finding Z01.419 2. Screening for malignant neoplasm of cervix Z12.4 PAP IG, RFX HPV ALL PTH [place] 3. Encounter for screening mammogram for breast cancer Z12.31 Bilateral screening mammogram with tomosynthesis [1] Allergies Allergen Reactions Codeine Other Reaction(s): nausea and vomiting [2] Past Medical History: Diagnosis Date Abnormal vaginal Pap smear x2 2005, 2012 BRCA negative 1 & 2 negative Breast lump Chicken pox Genetic testing with 84 gene panel all NEG Genital herpes Herpes genitalia Hodgkin disease (HCC) Hodgkin lymphoma (HCC) 09/25/2012 IIB [3] Past Surgical History: Procedure Laterality Date BREAST SURGERY Bilateral 2004 breast augmentation COLONOSCOPY 2020 LYMPH NODE BIOPSY 2006 VAGINAL DELIVERY x2 [4] Family History Problem Relation Name Age of Onset Breast cancer Mother Atrial fibrillation Mother Hyperlipidemia Mother No Known Problems Father BRCA 2 Sister Breast cancer Mother's Sister Ovarian cancer Maternal Grandmother Other (vitamin b12 deficiency) Maternal Grandfather Anemia Maternal Grandfather Colon cancer Paternal Grandmother documented in this encounterCitizens Memorial HealthcareMyohpgothb01-86-8245 Radiology Diagnostic study [facility] [address] [place] [address] Ultrasound Report Signed Patient: Clarita Aguilera MR#: [id number] : 1970 Acct:[id number] Age/Sex: 54 / F ADM Date: 5 Loc: Room: Type: [facility] Attending Dr: Garima Miller DO Ordering Provider: Garima Miller DO Date of Service: 06/01/25 US/US thyroid: enlarged thyroid Copies to: Garima Miller DO~ Thyroid Ultrasound HISTORY: Enlarged thyroid COMPARISON: None The RIGHT lobe measures 5.1 x 1.5 x 2.0cm. LEFT lobe measures 5.4 x 1.4 x 1.8 cm. Isthmus has an AP dimension of 0.1cm. Right superior anechoic nodule with solid component measures up to 12 mm. Rightmid hypoechoic nodule measures up to 13 mm. Additional right mid hypoechoic nodule measures up to 7 mm.. Left superior hypoechoic nodule measures up to 1.4cm. Left mid hypoechoic nodule measures up to 6 mm. No microcalcifications identified. Symmetric blood flow of the thyroid gland identified. US/US thyroid IMPRESSION: Bilateral thyroid nodules. Predominantly cystic nodules measuring up to 12 mm. Predominantly solid nodules measuring up to 14 mm. One-year follow-up assessment recommended. Impression dictated by: Thanh Frazier M.D. 06/01/2025 4:54 PM Dictation Location: GI TrackWALDO HOSPITALNavTech Tech: Carmita Felder Transcribed By: KAYLEE 06/01/25 1654 Dictated By: Thanh Frazier DO 06/01/25 1648 Signed By: 06/01/25 1654 [facility]08-26-2025 History of Present illness Narrative * Garima Miller DO - 05/25/2025 8:56 AM EDTAssociated Problem(s): Anxiety Discussed options. Will start lexapro at a low dose. She is to call if any problems or not improving. Encouraged counseling as well. * Garima Miller DO - 05/25/2025 8:15 AM EDT Images from the original note were not included. Clarita Aguilera is a 54 y.o. female presents with chief complaint of Annual Exam HPI: Well Adult Physical Patient here for a comprehensive physical exam. Annual Labs: 02/05/2025 Mammogram: 08/03/2024 Pap 07/07/2024 Colonoscopy: 06/21/2021 Here to have her wellness form completed Struggling with anxiety and being overwhelmed with her daughter and not making great decisions. Hashad a few mild panic attacks, struggles sleeping and sometimes has a hard time getting through the day at work. SUBJECTIVE: See medication list at the end of the note. Allergies Allergen Reactions Codeine Other Reaction(s): nausea and vomiting REVIEW OF SYMPTOMS: Review of Systems Constitutional: Negative for appetite change, fatigue, fever and unexpected weight change. HENT: Negative for congestion, ear pain, sinus pain, sore throat and trouble swallowing. Eyes: Negative for pain and visual disturbance. Respiratory: Negative for cough, shortness of breath and wheezing. Cardiovascular: Negative for chest pain, palpitations and leg swelling. No orthopnea Gastrointestinal: Negative for abdominal pain, blood in stool, constipation, diarrhea, nausea and vomiting. Genitourinary: Negative for dysuria and frequency. Musculoskeletal: Negative for arthralgias, back pain and myalgias. Skin: Negative for rash and wound. Neurological: Negative for dizziness, tremors, seizures, syncope, weakness, numbness and headaches. Psychiatric/Behavioral: Positive for sleep disturbance. Negative for confusion, hallucinations and suicidal ideas. The patient is nervous/anxious. Hematological: Negative for adenopathy. OBJECTIVE: 05/25/2025 8:18 AM 07/07/2024 11:01 AM 06/29/2024 1:12 PM Vitals BMI 20.88 kg/m2 21.24 kg/m2 21.06 kg/m2 Systolic 112 106 116 Diastolic 60 70 62 Heart Rate 65 65 Temp 98 F 97.6 F Height (in) 5' 2.5 5' 2.5 5' 2.5 Weight (lb) 116 118 117 Visit Report Report Report Report Physical Exam Vitals reviewed. Constitutional: General: She is not in acute distress. HENT: Head: Normocephalic. Right Ear: Tympanic membrane and ear canal normal. Left Ear: Tympanic membrane and ear canal normal. Mouth/Throat: Mouth: Mucous membranes are moist. Pharynx: No posterior oropharyngeal erythema. Eyes: Extraocular Movements: Extraocular movements intact. Pupils: Pupils are equal, round, and reactive to light. Neck: Thyroid: Thyromegaly present. Cardiovascular: Rate and Rhythm: Normal rate and regular rhythm. Pulses: Normal pulses. Heart sounds: Normal heart sounds. No murmur heard. No friction rub. No gallop. Pulmonary: Breath sounds: Normal breath sounds. No wheezing, rhonchi or rales. Abdominal: General: Bowel sounds are normal. There is no distension. Palpations: Abdomen is soft. Tenderness: There is no abdominal tenderness. There is no guarding or rebound. Musculoskeletal: General: No swelling. Lymphadenopathy: Cervical: No cervical adenopathy. Skin: Findings: No lesion or rash. Neurological: General: No focal deficit present. Mental Status: She is alert and oriented to person, place, and time. Cranial Nerves: No cranial nerve deficit. Motor: No weakness. Deep Tendon Reflexes: Reflexes normal. Psychiatric: Mood and Affect: Mood normal. ASSESSMENT AND PLAN: Problem List Items Addressed This Visit Anxiety Discussed options. Will start lexapro at a low dose. She is to call if any problems or not improving. Encouraged counseling as well. Relevant Medications escitalopram (Lexapro) 5 MG tablet Other Visit Diagnoses Preventative health care - Primary Thyromegaly Relevant Orders US thyroid At today's health maintanence appointment I reviewed the patients past medical history along with any laboratory and diagnostic testing preformed prior to the visit. During the visit, health care maintanence was reviewed and recommendations made specifically for the patient based on their risk factors. Current colon cancer screening: up-to-date with colonoscopy. Breast cancer screening: up-to-date with screening. Blood work: most recent blood work reviewed . Finally the patient was instructed to call the office if any health issues arise until the next well check/appointment. At the conclusion of the visit all questions were answered which were brought forth. Encouraged to live a healthy lifestyle including a healthy diet and regular exercise. Follow up in about 2 months (around 07/25/2025) for Recheck. Patient's Medications New Prescriptions ESCITALOPRAM (LEXAPRO) 5 MG TABLET Take 1 tablet (5 mg) by mouth Daily Previous Medications No medications on file Modified Medications No medications on file Discontinued Medications No medications on file I have reviewed and reconciled the history and medication list with the patient today. documented in this encounterCitizens Memorial [id number] History of Present illness Narrative* Leora Zamudio DO - 07/07/2024 11:00 AM EDT Images from the original note were not included. Leora Zamudio D.O. Obstetrics and Gynecology Patient: Clarita Aguilera : 1970 (53 y.o.) Yearly Wellness Exam Date: 07/07/2024 Reason for Visit - Chief Complaint Patient presents with Gynecologic Exam Denies concerns, Denies bowel/bladder/breast concerns. Denies vaginal bleeding/spotting. Visit Vitals BP 106/70 Ht 5' 2.5 Wt 118 lb BMI 21.24 kg/m Smoking Status Never BSA 1.54 m Allergies Allergen Reactions Codeine Other Reaction(s): nausea and vomiting History of Present Illness, Associated Treatments and Results - OB History Para Term AB Living 2 2 2 0 0 2 SAB IAB Ectopic Multiple Live Births 0 0 0 0 2 # Outcome Date GA Lbr Rad/2nd Weight Sex Type Anes PTL Lv 2 Term 1 Term Obstetric Comments Pap smear 06/13/23 wnl, Mammogram 06/25/23 wnl Review of Systems - General: Chills denies. Allergy/Immunology: Rash Denies. ENT: Denies Difficulty swallowing. Endocrine: Denies Cold intolerance denies. Heat intolerance denied. Respiratory: Denies Chest pain denies. Shortness of breath denies. Breast: Denies Bloody nipple discharge denies. Breast lump denies. Cardiovascular: Denies Chest pain. Gastrointestinal: Abdominal pain denies. Blood in stool denies. Hematology: Easy bruising denies. Prolonged bleeding denies. Women Only: Breast lump denies. Vaginal bleeding between periods is denied. Vaginal discharge/itching denied. Genitourinary: Blood in urine denies. Painful urination denies. Incontinence denies. Skin: Hair changes. Neurologic: Seizures denied. Stroke denies. Psychiatric: Anxiety denies. Depressed mood denies. Medication Documentation Review Audit Reviewed by Monica Srivastava MA (Engine Pilot) on 07/07/24 at 1100 Medication Order Taking? Sig Documenting Provider Last Dose Status Discontinued 06/29/24 1316 Past Medical History: Diagnosis Date Abnormal vaginal Pap smear x2 2005, 2012 BRCA negative 1 & 2 negative Breast lump Chicken pox Genetic testing with 84 gene panel all NEG Genital herpes Herpes genitalia Hodgkin disease (CMS/HCC) Hodgkin lymphoma (CMS/HCC) 09/25/2012 IIB Past Surgical History: Procedure Laterality Date BREAST SURGERY Bilateral 2004 breast augmentation COLONOSCOPY 2020 COLONOSCOPY W/ BIOPSIES x2 COLPOSCOPY LYMPH NODE BIOPSY 2006 VAGINAL DELIVERY x2 Family History Problem Relation Name Age of Onset Breast cancer Mother Atrial fibrillation Mother Hyperlipidemia Mother No Known Problems Father BRCA 2 Sister Breast cancer Mother's Sister Ovarian cancer Maternal Grandmother Other (vitamin b12 deficiency) Maternal Grandfather Anemia Maternal Grandfather Colon cancer Paternal Grandmother Physical Exam - General appearance, mentation, extraocular movements, facial strength and movement, hearing, upper and lower extremity strength and tone, sensation to gross testing, coordination, and gait are normalor at baseline unless noted below. General Examination: GENERAL APPEARANCE: alert oriented well developed, well nourished. HEAD: normocephalic atraumatic. EYES: sclera anicteric. EARS: no obvious hearing deficit. SKIN: warm and dry. HEART: regular rate and rhythm. LUNGS: clear to auscultation bilaterally. CHEST: axillary nodes grossly normal. BREASTS: no masses palpable bilaterally, normal nipples bilaterally. ABDOMEN: soft, nontender, nondistended, no masses palpable. BACK: no costovertebral angle tenderness, no obvious scoliosis/kyphosis. FEMALE GENITOURINARY: normal vaginal mucosa, cervix absent of lesions, nontender, uterus AV, mobile, ovaries nonpalpable and nontender. EXTREMITIES: no edema. NEUROLOGIC: alert and oriented. PSYCH: cooperative with exam. Diagnoses and all orders for this visit: Encounter for gynecological examination without abnormal finding Screening for malignant neoplasm of cervix - PAP IG, RFX [place] Encounter for screening mammogram for breast cancer - Bilateral screening mammogram with tomosynthesis Pap, pelvic and breast exam completed. Findings of today's exam discussed with the patient. Continue MSBE. Ca/Vit D recommendations reviewed with the patient. The patient is to contact the office with any changes to her gynecological condition. The patient is to return in 1 year or as needed ICD-10-CM 1. Encounter for gynecological examination without abnormal finding Z01.419 2. Screening for malignant neoplasm of cervix Z12.4 PAP IG, RFX HPV ALL PTH [place] 3. Encounter for screening mammogram for breast cancer Z12.31 Bilateral screening mammogram with tomosynthesis documented in this encounterCitizens Memorial [id number] History of Present illness Narrative* Garima Miller DO - 06/29/2024 1:15 PM EDT Images from the original note were not included. Clarita Aguilera is a 53 y.o. female presents with chief complaint of Annual Exam HPI: Well Adult Physical Patient here for a comprehensive physical exam. Labs 05/05/2024 Mammogram 06/27/2023 - has order [place] [facility] Pap 06/13/2023 No concerns today. Needs wellness forms filled out SUBJECTIVE: See medication list at the end of the note. Allergies Allergen Reactions Codeine Other Reaction(s): nausea and vomiting REVIEW OF SYMPTOMS: Review of Systems Constitutional: Negative for appetite change, fatigue, fever and unexpected weight change. HENT: Negative for congestion, ear pain, sinus pain, sore throat and trouble swallowing. Eyes: Negative for pain and visual disturbance. Respiratory: Negative for cough, shortness of breath and wheezing. Cardiovascular: Negative for chest pain, palpitations and leg swelling. No orthopnea Gastrointestinal: Negative for abdominal pain, blood in stool, constipation, diarrhea, nausea and vomiting. Genitourinary: Negative for dysuria and frequency. Musculoskeletal: Negative for arthralgias, back pain and myalgias. Skin: Negative for rash and wound. Neurological: Negative for dizziness, tremors, seizures, syncope, weakness, numbness and headaches. Psychiatric/Behavioral: Negative for confusion, hallucinations, sleep disturbance and suicidal ideas. The patient is not nervous/anxious. Hematological: Negative for adenopathy. OBJECTIVE: 06/29/2024 1:12 PM 07/26/2023 1:01 PM 06/13/2023 10:16 AM Vitals BMI 21.06 kg/m2 21.6 kg/m2 21.42 kg/m2 Systolic 116 112 110 Diastolic 62 64 60 Heart Rate 65 64 Temp 97.6 F 97.7 F Height (in) 5' 2.5 5' 2.5 5' 2.5 Weight (lb) 117 120 119 Visit Report Report Report Report Physical Exam Vitals reviewed. Constitutional: General: She is not in acute distress. HENT: Head: Normocephalic. Right Ear: Tympanic membrane and ear canal normal. Left Ear: Tympanic membrane and ear canal normal. Mouth/Throat: Mouth: Mucous membranes are moist. Pharynx: No posterior oropharyngeal erythema. Eyes: Extraocular Movements: Extraocular movements intact. Pupils: Pupils are equal, round, and reactive to light. Cardiovascular: Rate and Rhythm: Normal rate and regular rhythm. Pulses: Normal pulses. Heart sounds: Normal heart sounds. No murmur heard. No friction rub. No gallop. Pulmonary: Breath sounds: Normal breath sounds. No wheezing, rhonchi or rales. Abdominal: General: Bowel sounds are normal. There is no distension. Palpations: Abdomen is soft. Tenderness: There is no abdominal tenderness. There is no guarding or rebound. Musculoskeletal: General: No swelling. Lymphadenopathy: Cervical: No cervical adenopathy. Skin: Findings: No lesion or rash. Neurological: General: No focal deficit present. Mental Status: She is alert and oriented to person, place, and time. Cranial Nerves: No cranial nerve deficit. Motor: No weakness. Deep Tendon Reflexes: Reflexes normal. Psychiatric: Mood and Affect: Mood normal. ASSESSMENT AND PLAN: Problem List Items Addressed This Visit None Visit Diagnoses Preventative health care - Primary At today's [facility] maintanence appointment I reviewed the patients past medical history along with any laboratory and diagnostic testing preformed prior to the visit. During the visit, health care maintanence was reviewed and recommendations made specifically for the patient based on their risk factors. Current colon cancer screening: up-to-date with colonoscopy. Breast cancer screening: up-to-date with screening. Blood work: most recent blood work reviewed . Finally the patient was instructed to call the office if any health issues arise until the next well check/appointment. At the conclusion of the visit all questions were answered which were brought forth. Encouraged to live a healthy lifestyle including a healthy diet and regular exercise. Follow up in about 1 year (around 06/29/2025) for Recheck. Patient's Medications New Prescriptions No medications on file Previous Medications No medications on file Modified Medications No medications on file Discontinued Medications PROMETHAZINE (PHENERGAN) 12.5 MG TABLET Take 1 tablet (12.5 mg) by mouth every 6 (six) hours if needed for nausea or vomiting. I have reviewed and reconciled the history and medication list with the patient today. documented in this encounterCitizens Memorial [id number] Telephone encounter Note* Telephone Encounter - Amanda Pederson - 06/26/2024 11:11 AM EDT LVM reminder 06/29 appointment [facility] [id number] Miscellaneous Notes* Telephone Encounter - Amanda Pederson - 06/26/2024 11:11 AM EDT LVM reminder 06/29 appointment documented in this encounterCitizens Memorial [id number] Evaluation note* Encounter Date Diagnosis Assessment Notes Treatment Notes Treatment Clinical Notes Sep, Contact with and (zhu spected) exposure to other viral communicable diseases (ICD-10 - Z20.828) covid test positive, see above tx plan. Sep,OVID (ICD-10 - U07.1) Pt was provided with positive covid test result with specific quarantine dates in office today. Nurse provided pt with test result sheet and otc treatment guideline sheet, which included quarantine guidance and f/u instructions. Paperwork also discusses warning sx that require need for ER visit. Otherwise pt is to f/u with pcp. Sep,ther Additional time spent conducting pre-visit phone call, screening for symptoms, instructions on social distancing, application and removal of PPE, and cleaning of examination room, equipment and supplies was preformed. Patient education given for testing methodology and results. Patient care instructions given in writting by [facility] Care At Home document. Reclamador Other 12-13-2021 NoteHNO ID: [id number] Author: Montse Garcia MD Service: ? Author Type: Physician Type: Progress Notes Filed: 09/13/2021 1:04 PM Note Text: PATIENT NAME: Clarita Aguilera DATE: 09/11/2021 PRIMARY CARE PHYSICIAN:Garima Miller DO [...] Peripheral pulses: Normal RADIOLOGIC DATA: 06/13/2021 [place] No mammographic evidence of malignancy. Routine follow-up in 1 year recommended. 09/07/2013 CT CAP ([facility] Stable soft tissue attenuation along with a [...] Count (k/uL) Date Value 09/11/2021 205 ASSESSMENT/PLAN: 1. 201.90 Hodgkin's disease Stage IIB nodular sclerosing Hodgkin's disease diagnosed December 2006. Status post chemotherapy with ABVD x 6 cycles December 2006 through June 2007. The patient a (more content not included)...[facility] Evaluation noteNo assessment information availableSelect Medical Specialty [facility] Work Phone: Evaluation note* Diagnosis Encounter for gynecological examination without abnormal finding Screening for malignant neoplasm of cervix Screening for malignant neoplasm of the cervix Encounter for screening mammogram for breast cancer documented in this encounter [facility] HealthcareEvaluation note* Diagnosis Preventative health care- Primary Routine general medical examination at a health care facility documented in this encounter [facility]* Diagnosis Preventative health care- Primary Routine general medical examination at a health care facility Anxiety Anxiety state, unspecified Thyromegaly Goiter, unspecified documented in this encounter [facility]Evaluation note* Diagnosis Preventative health care- Primary Routine general medical examination at a health care facility Anxiety Anxiety state, unspecified Thyromegaly Goiter, unspecified Encounter for gynecological examination without abnormal finding Screening for malignant neoplasm of cervix Screening for malignant neoplasm of the cervix Encounter for screening mammogram for breast cancer documented in this encounter [facility]* Diagnosis Preventative health care- Primary Routine general medical examination at a health care facility Anxiety Anxiety state, unspecified Thyromegaly Goiter, unspecified Anxiety- Primary Anxiety state, unspecified Multiple thyroid nodules Nontoxic multinodular goiter documented in this encounter [facility]* Diagnosis Preventative health care- Primary Routine general medical examination at a health care facility Anxiety Anxiety state, unspecified Thyromegaly Goiter, unspecified Anxiety- Primary Anxiety state, unspecified Multiple thyroid nodules Nontoxic multinodular goiter Multiple thyroid nodules- Primary Nontoxic multinodular goiter documented in this encounter [facility] HealthcareHistory general Narrative - Reported* Type Description Date Medical History hodgkins lymphoma Surgical Historylymph node biopsyHospitalization HistoryLyEllis Fische[facility] Other Reason for referral (narrative)No reason for referral information availableUniversity Hospitals [facility] Work Phone: Summary Purpose Family History Relationship Condition Age at Onset Recorded Date/T aki grandparent Malignant neoplasm of uterus Unknown grandparentMalignant neoplasm of colonUnknownNot SpecifiedMalignant neoplasm of breastUnknown Relationship Condition Age at Onset Recorded Date/T aki grandparent Malignant neoplasm of uterus Unknown grandparentMalignant neoplasm of colonUnknownmotherMalignant neoplasm of breast Unknown Advance Directives Advance Directive Response Recorded Date/ Time Advance Directives No February 10 8 3:07pm Advance Directive Response Recorded Date/ Time Advance Directives No February 10 8 2:07pm Chief Complaint and Reason for Visit Chief Complaint M54.50 Z12.4 Chief Complaint Z12.4 Screening Chief Complaint Z12.4 Screening Pillars Chief Complaint Screening Pillars nausea, congestion Chief Complaint Pillars Chief Complaint Z12.4 Z12.31 Chief Complaint Admit Date PillFebruary 05, 2025 8:03am Chief Complaint Admit Date e01.0 June 01, 2025 2:43pm Additional Source Comments INFORMATION SOURCE (unrecogn ized section and content) DATE CREATED AUTHOR 10/23/2021 [facility] DATE CREATED AUTHOR AUTHOR'S ORGANIZ ATION 07/30/2025 [facility] DATE CREATED AUTHOR AUTHOR'S ORGANIZ ATION 08/10/2025 [facility] EPIC REASON FOR VISIT (unrecogniz ed section and content) ReasonCommentsGynecologic ExamDenies concerns, Denies bowel/bladder/breast concerns. Denies vaginal bleeding/spotting.ReasonCommentsAnnual ExamReason CommentsGynecologic ExamPt thought she had UTI last week, Had bactrim at home, took that and is feeling better. Pt states only symptom she had was burning sensation on outside of skin. Denies any other concerns. Denies breast concerns. Denies any vaginal bleeding/spotting.ReasonCommentsFollow-upReasonComments Thyroid NoduleNew Patient : thyroid nodules / dysphagia Care Teams (unrecognized sec tion and content) Team Status: Inactive Member Role Status Dates Garima Miller DO Primary Care Provider Active Xochitl Ybarra ProviderActive Team Status: Inactive Member Role Status Dates [...] Status Dates Referral Self Attending Provider Active Megha Ybarra ProviderActivePHYSICIAN NO FAMILYPrimary Care ProviderActive Team Status: Inactive Member Role Status Dates Leora Zamudio DO Attending Provider Active PHYSICIAN NO FAMILYPrimary Care ProviderActive Team Status: Inactive Member Role Status Dates PHYSICIAN NO FAMILY Primary Care Provider Active Kirill Machuca DO CHCAttending ProviderActive Team Status: Inactive Member Role Status Dates Garima Miller DO Primary Care Provider Active Breanna Caicedo ProviderActive Team Status: Inactive Member Role Status Dates Garima Miller DO Primary Care Provider Active Start: May 05, 2024 End: May 05vladislav Machuca - [facility] , CHCAttending ProviderActiveStart: May 05, 2024 End: May 05, 2024Team MemberRelationshipSpecialtyStart DateEnd Date Garima Miller, DO [address] [place] [address] [facility] - [facility]Saint [facility]03/22/23Team MemberRelationshipSpecialtyStart DateEnd Date Garima Miller, DO [address] [place] [address] [facility]/23 Team Status: Inactive Member Role Status Dates Leora Zamudio DO Attending Provider Active S tart: July 07, 2024 End: July 07, 2024 Team Status: Inactive Member Role Status Dates Leora Zamudio DO Attending Provider Active S tart: August 03, 2024 End: August 03llGayathri Mcgrath Care ProviderActiveStart: August 03, 2024 End: August 03, 2024Team MemberRelationshipSpecialtyStart DateEnd Date Garima Miller, DO [address] [place] [address] [facility]03/22/23Team MemberRelationshipSpecialtyStart DateEnd Date Garima Miller, DO [address] [place] [address] [facility]CP - [facility]03/22/23Team MemberRelationshipSpecialtyStart DateEnd Date Garima Miller, DO [address] [place] [address] PCP - [facility]03/22/23 Team Status: Inactive Member Role Status Dates Garima Miller DO Primary Care Provider Active Start: February 05, 2025 End: February 05vladislav Grigsby [facility] DO CHCAttending ProviderActiveStart: February 05, 2025 End: February 05, 2025Team MemberRelationshipSpecialtyStart DateEnd Date Garima Miller DO [address] [place] [address] PCP - [facility] Medicine03/22/23 Garima Miller DO [address] [place] [address] PCP - [facility] [place] [facility]09/30/2311Team MemberRelationshipSpecialty Start DateEnd Date Garima Miller DO [address] [place] [address] PCP - [facility] Medicine03/22/23 Garima Miller, [address] [place] [address] PCP - [facility] [place] [facility]09/30/2311 Team Status: Inactive Member Role Status Dates Garima Miller DO Primary Care Provider Active Start: June 01, 2025 End: June 01andrey Miller DOAttending ProviderActiveStart: June 01, 2025 End: June 01, 2025Team MemberRelationshipSpecialtyStart DateEnd Date Garima Miller DO [address] [place] [address] PCP - [facility] Medicine03/22/23 Garima Miller DO [address] [place] [address] PCP - [facility] [place] [facility]09/30/2311Team MemberRelationshipSpecialty Start DateEnd Date Garima Miller, DO [address] [place] [address] PCP - [facility] Medicine03/22/23 Garima Miller, DO [address] [place] [address] PCP - [facility] [place] [facility]09/30/2311 Team Status: Inactive Member Role/Relationship Status Dates Garima Miller DO Primary Care Provider Active Start: June 01, 2025 End: June 01llashly Miller DOAttending ProviderActiveStart: June 01, 2025 End: June 01, 2025 Team Status: Inactive Member Role/Relationship Status Dates Leora Zamudio DO Attending Provider Active S tart: July 21, 2025 End: July 21, 2025Team MemberRelationshipSpecialtyStart DateEnd Date Garima Miller, DO [address] [place] [address] PCP - [facility]03/22/23 Garima Miller, DO [address] [place] [address] PCP - [facility] [place] [facility]09/30/2311Team MemberRelationshipSpecialty Start DateEnd Date Garima Miller, DO [address] [place] [address] PCP - [facility]03/22/23 Garima Miller, DO [address] [place] [address] PCP - [facility]09/30/2311Te MemberRelationshipSpecialty Start DateEnd Date José Luismaria esther Garima M, DO [address] [place] [address] PCP - [facility]03/22/23 Garima Miller, DO [address] [place] [address] [facility] - [facility]09/30/2311Te MemberRelationshipSpecialty Start DateEnd Date José LuisGarima mayo, DO [address] [place] [address] PCP - [facility]03/22/23 Garima Miller, DO [address] [place] [address] [facility] - [facility]09/30/2311 Goals (unrecognized section and content) Goals may [...] BE BASED ON THE PRIMARY CLINICAL RECORDS. [employer] [facility]. provides no warranty or guarantee of the accuracy or completeness of information in this document.
--- NOTE | 2025-08-17 12:18 | CT_ITS ---
The [address] [address] Patient Name: PEGGY AGUILERA MRN: [id number] date: 1970 Sex: F Assigned Patient Location: ER Current Patient Location: Accession/Order Number: [id number] Exam Date: 08/17/2025 12:49 Report Date: 08/17/2025 13:21 At the request of: HANANE MOMIN MD Procedure: CT soft tissue neck w con CT soft tissue neck w con 08/17/2025 12:56 PM SIGNS AND SYMPTOMS: ^Difficulty swallowing TECHNIQUE: Multidetector CT axial slices of the soft tissues of the neck were obtained with IV contrast. Sagittal and coronal reformats were reconstructed. CT was performed with one or more of the following dose reduction techniques: Automated exposure control, adjustment of the mA and/or kV according to patient size, or use of iterative reconstruction technique. COMPARISON: None FINDINGS: Mucosal surfaces of the nasopharynx, oropharynx, hypopharynx, glottic, and subglottic airways are grossly unremarkable. The parotid and submandibular glands appear unremarkable. Multiple thyroid nodules largest measuring 8 mm involving the right lobe The carotid and jugular circulations are within normal limits. The visualized lung parenchyma shows no acute pathology. No acute bony abnormalities are appreciated. CT/CT soft tissue neck w con IMPRESSION: No acute findings. Multiple thyroid nodules largest measuring 8 mm. Impression dictated by: Tye Morrissey Jr., D.O. 08/17/2025 1:21 PM Dictation Location: [place] [address] Electronically authenticated by: [id number] Y Date: 08/17/2025 13:21
--- NOTE | 2025-08-17 12:20 | ED.GENADUL1 ---
HPI HPI - General Adult General Chief complaint: Recheck/Abnormal Lab/Rx Stated complaint: DIFFICULTY SWALLOWING Time Seen by Provider: 08/17/25 12:14 Source: patient Mode of arrival: walk-in History of Present Illness HPI narrative: 54-year-old female presented to the emergency department trouble swallowing. She has had some thyroid issues recently and was found to have some cysts. The symptoms started at the end of April and she does not feel like it is her thyroid gland that is causing this. It seems to wax and wane. No sore throat or fever. Related Data Home Medications ?Medication ?Instructions ?Recorded ?Confirmed No Known Home Medications 09/18/23 08/17/25 Allergies Allergy/AdvReac Type Severity Reaction Status Date / Time No Known Drug Allergies Allergy Verified 09/18/23 16:30 Review of Systems ROS Narrative A ten point review of systems is negative except as noted above. PFSH PFSH Social History Smoking status: Never smoker Little interest or pleasure in doing things: not at all Feeling down, depressed, or hopeless: not at all Exam Narrative Exam Narrative: Nurses note and vital signs reviewed General:The patient appears well and in no apparent distress.Patient is resting comfortably on cart. Skin:Warm, dry, no pallor noted.There is no rash noted. Head:Normocephalic, atraumatic Eye: Normal conjunctiva, no drainage Ears, Nose, Mouth, and Throat: oral mucosa is moist. Nares patent. No pharyngeal erythema, exudate, or swelling Cardiovascular:Regular Rate and Rhythm Respiratory:Patient is in no distress, no accessory muscle use, lungs are clear to auscultation, no wheezing, rales or rhonchi Back:non-tender GI: Left and nontender Musculoskeletal: The patient has no evidence of calf tenderness, no pitting edema, symmetrical pulses noted bilaterally Neurological:A&O, normal speech Psychiatric:Cooperative Constitutional Vital Signs, click to edit/add: Last Vital Signs Temp 98.0 F 08/17/25 12:01 Pulse 70 08/17/25 12:01 Resp 16 08/17/25 12:01 BP 143/80 H 08/17/25 12:01 Pulse Ox 100 08/17/25 12:01 O2 Del Method Room Air 08/17/25 12:01 Course Vital Signs Vital signs: Vital Signs Temperature 98.0 F 08/17/25 12:01 Pulse Rate 70 08/17/25 12:01 Respiratory Rate 16 08/17/25 12:01 Blood Pressure 143/80 H 08/17/25 12:01 Pulse Oximetry 100 08/17/25 12:01 Oxygen Delivery Method Room Air 08/17/25 12:01 Temperature 98.0 F 08/17/25 12:01 Pulse Rate 70 08/17/25 12:01 Respiratory Rate 16 08/17/25 12:01 Blood Pressure 143/80 H 08/17/25 12:01 Pulse Oximetry 100 08/17/25 12:01 Oxygen Delivery Method Room Air 08/17/25 12:01 Medical Decision Making MDM Narrative Medical decision making narrative: CT scan shows only thyroid nodules. No other masses present. The patient is reassured and she will follow-up with her ENT physician. Treatment diagnosis and follow-up were discussed with the patient. Differential Diagnosis Differential Diagnosis: Thyroid nodule, mass, abscess Lab Data Lab results reviewed: Yes I reviewed the patient's lab results Labs: Lab Results 08/17/25 Range/Units 12:30 WBC 7.3 (4.0-11.0) 10^3/uL RBC 4.47 (4.20-5.40) 10^6/uL Hgb 14.0 (12.0-16.0) g/dL Hct 42.0 (36.0-48.0) % MCV 94.0 (81.0-99.0) fL MCH 31.3 (26.7-34.0) pg MCHC 33.3 (29.9-35.2) g/dL RDW 13.0 (11.0-15.0) % Plt Count 217 (150-450) 10^3/uL MPV 10.1 (9.5-13.5) fL Neut % (Auto) 82.9 H (43.0-75.0) % Lymph % (Auto) 10.3 L (20.5-60.0) % Lyon % (Auto) 5.2 (1.7-12.0) % Eos % (Auto) 0.4 L (0.9-7.0) % Baso % (Auto) 0.7 (0.2-2.0) % Neut # (Auto) 6.0 (1.4-6.5) 10^3/uL Lymph # (Auto) 0.8 L (1.2-3.8) 10^3/uL Lyon # (Auto) 0.4 (0.3-0.8) 10^3/uL Eos # (Auto) 0.0 (0.0-0.7) 10^3/uL Baso # (Auto) 0.1 (0.0-0.1) 10^3/uL Abs Immat Gran (auto) 0.04 H (0.00-0.03) 10^3/uL Imm/Tot Granulo (auto) 0.5 (0.0-0.5) % Sodium 142 (136-145) mmol/L Potassium 3.9 (3.5-5.1) mmol/L Chloride 105 (98-107) mmol/L Carbon Dioxide 29.9 (21.0-32.0) mmol/L Anion Gap 11.0 BUN 16.0 (7.0-18.0) mg/dL Creatinine 0.80 (0.55-1.02) mg/dL Est GFR ( Amer) >60 (>=60 mL/min/1.73m^2) Est GFR (Non-Af Amer) >60 (>=60 mL/min/1.73m^2) BUN/Creatinine Ratio 20.0 Glucose 100 (74-106) mg/dL Calcium 9.2 (8.5-10.1) mg/dL Imaging Data ct neck: Radiologist's impression: ITS Impressions Soft Tissue Neck CT 08/17/25 12:18 IMPRESSION: No acute findings. Multiple thyroid nodules largest measuring 8 mm. Impression dictated by: Tye Morrissey Jr. DLinaOLina 08/17/2025 1:21 PM Dictation Location: [place] [address] Electronically authenticated by: [id number] Y Date: 08/17/2025 13:21 Discharge Plan Discharge Chief Complaint: Recheck/Abnormal Lab/Rx Clinical Impression: Thyroid nodule Patient Disposition: Home, Self-Care Time of Disposition Decision: 13:33 Condition: Good Mode of Transportation: Private Vehicle Prescriptions / Home Meds: No Action No Known Home Medications Print Language: Arabic Instructions: Thyroid Nodules (ED) Referrals: RAMIREZ QUEEN [Primary Care Provider, Family Practice] - 1 week
[2025-08-17 12:38] LABS: Hematocrit 42.0 % (36.0-48.0); Hemoglobin 14.0 g/dL (12.0-16.0); Immature Granulocytes Abs Auto 0.04 10^3/uL (0.00-0.03); Immature Granulocytes Pct Auto 0.5 % (0.0-0.5); Lymphocytes Absolute Auto 0.8 10^3/uL (1.2-3.8); Mean Corpuscular HGB Conc 33.3 g/dL (29.9-35.2); Mean Corpuscular Hemoglobin 31.3 pg (26.7-34.0); Mean Corpuscular Volume 94.0 fL (81.0-99.0); Platelet Count 217 10^3/uL (150-450); Red Blood Count 4.47 10^6/uL (4.20-5.40); White Blood Count 7.3 10^3/uL (4.0-11.0)
[2025-08-17 12:45] LABS: Anion Gap 11.0; Blood Urea Nitrogen 16.0 mg/dL (7.0-18.0); Calcium 9.2 mg/dL (8.5-10.1); Carbon Dioxide 29.9 mmol/L (21.0-32.0); Chloride 105 mmol/L (98-107); Estimated GFR (African America >60 (>=60 mL/min/1.73m^2); Estimated GFR (Non-African Ame >60 (>=60 mL/min/1.73m^2); Glucose 100 mg/dL (74-106); Potassium 3.9 mmol/L (3.5-5.1); Sodium 142 mmol/L (136-145)
== END 2025-08-17 13:45 | disposition home or self-care (01) ==
PROVIDERS: Emergency Provider Emergency Medicine; PCP Family Medicine
DX: E04.2 Nontoxic multinodular goiter (principal)
CPT/HCPCS: 36415; 70491; 80048; 85025; 99284; Q9967